=== PATIENT | female | born 1980 | race Caucasian/White ===

== ENCOUNTER 2016-10-17 20:22 | Outpatient (CLI) | payer OTHER ==
[2016-10-18] MEDS ORDERED: ceFAZolin 2 GM/50 ML 50 ML IV SCH (09:15)
[2016-10-18] MEDS ORDERED: VANCOMYCIN INJ 1 GM in SODIUM CHLORIDE 0.9% 250 ML IV SCH (10:00)
== END 2016-10-17 20:23 | disposition critical access hospital (66) ==
DX: M25.551 Pain in right hip (principal); W54.1XXA Struck by dog, initial encounter; W18.39XA Other fall on same level, initial encounter; Y92.007 Garden or yard of unspecified non-institutional (private) residence as the place of occurrence of the external cause
CPT/HCPCS: A0425; A0427

== ENCOUNTER 2016-10-17 20:32 | Inpatient (IN) | payer OTHER ==
[2016-10-17] MEDS ORDERED: SODIUM CHLORIDE 0.9% 1,000 ML IV ONE (20:45)
[2016-10-17] MEDS ORDERED: HYDROmorphone 1 MG/ML SYRINGE IVP STA ×3 (20:45→21:53)
[2016-10-17] MEDS ORDERED: HYDROmorphone 1 MG/ML SYRINGE ONE ×2 (21:28→22:09)
[2016-10-17] MEDS ORDERED: HYDROmorphone 1 MG/ML SYRINGE IVP PRN (22:05)
[2016-10-17] MEDS ORDERED: PROMETHAZINE 25 MG TABLET PO PRN (23:11)
[2016-10-17] MEDS ORDERED: SUMAtriptan 25 MG TABLET PO PRN (23:11)
[2016-10-17] MEDS ORDERED: OXYCODONE 10 MG PO PRN (23:11)
[2016-10-17] MEDS ORDERED: GABAPENTIN 300 MG CAPSULE PO SCH (23:12)
[2016-10-17] MEDS ORDERED: diazePAM INJ 5 MG/ML SYRINGE IVP ONE (23:15)
[2016-10-17] MEDS ORDERED: ALENDRONATE 70 MG TABLET PO SCH ×2 (23:45)
[2016-10-17] MEDS: HYDROmorphone 1 MG/ML SYRINGE IVP PRN (23:57)
[2016-10-18] MEDS ORDERED: BUPIVACAINE 0.5% PF 10 ML VIAL IM SCH (00:02)
[2016-10-18] MEDS: SODIUM CHLORIDE 0.9% 1,000 ML IV SCH ×2 (00:03→16:23)
[2016-10-18] MEDS ORDERED: BUPIVACAINE 0.5% PF 30 ML VIAL ONE (00:16)
[2016-10-18] MEDS: ALPRAZolam 0.25 MG TABLET PO SCH ×6 (00:24→22:23)
[2016-10-18] MEDS: CIPROFLOXACIN 200 MG/100 ML 100 ML IV SCH ×3 (00:32→23:54)
[2016-10-18] MEDS: oxyCODONE 5 MG TABLET PO PRN ×3 (00:59→23:45)
[2016-10-18] MEDS: HYDROmorphone 1 MG/ML SYRINGE IVP PRN ×9 (00:59→21:26)
[2016-10-18] MEDS: ONDANSETRON ODT 4 MG TABLET TL PRN ×2 (02:15→08:34)
[2016-10-18] MEDS: SODIUM CHLORIDE FLUSH 0.9% 10 ML SYRINGE IVP PRN (03:17)
[2016-10-18] MEDS: SODIUM CHLORIDE FLUSH 0.9% 10 ML SYRINGE IVP SCH ×3 (05:58→22:23)
[2016-10-18] MEDS ORDERED: HYDROmorphone 1 MG/ML SYRINGE IVP STA (06:14)
[2016-10-18] MEDS ORDERED: diazePAM INJ 5 MG/ML SYRINGE IVP ONE (06:14)
[2016-10-18] MEDS: ONDANSETRON 4 MG/2 ML VIAL IVP PRN ×2 (06:25→18:16)
[2016-10-18] MEDS ORDERED: PANTOPRAZOLE 40 MG TABLET PO SCH (07:00)
[2016-10-18] MEDS: PROCHLORPERAZINE 10 MG/2 ML VIAL IVP PRN ×2 (08:44→21:20)
[2016-10-18] MEDS ORDERED: NON FORMULARY MED (Sertraline Hcl [Zoloft] 100 MG) PO SCH (09:00)
[2016-10-18] MEDS ORDERED: SUMATRIPTAN 20 MG NAS PRN (09:00)
[2016-10-18] MEDS: predniSONE 20 MG TABLET PO SCH (09:02)
[2016-10-18] MEDS: FAMOTIDINE 20 MG/50 ML 50 ML IV SCH ×3 (09:04→22:22)
[2016-10-18] MEDS: PANTOPRAZOLE 40 MG TABLET PO SCH (09:04)
[2016-10-18] MEDS ORDERED: VANCOMYCIN INJ 1 GM in SODIUM CHLORIDE 0.9% 250 ML IV SCH (09:45)
[2016-10-18] MEDS ORDERED: ceFAZolin 2 GM/50 ML 50 ML IV SCH (09:45)
[2016-10-18] MEDS: SCOPOLAMINE PATCH TOP SCH (10:15)
[2016-10-18] MEDS ORDERED: LACTATED RINGERS 1,000 ML IV ONE ×2 (12:26→13:31)
[2016-10-18] MEDS ORDERED: BUPIVACAINE 0.25%-EPI 1:200000 PF 30 ML VIAL SUBQ ONE ×3 (12:26)
[2016-10-18] MEDS ORDERED: fentaNYL 100 MCG/2 ML VIAL IVP ONE (12:31)
[2016-10-18] MEDS ORDERED: PHENYLEPHRINE 10 MG/ML VIAL IV ONE (12:31)
[2016-10-18] MEDS ORDERED: PROPOFOL 200 MG/20 ML VIAL IVP ONE (12:31)
[2016-10-18] MEDS ORDERED: LIDOCAINE-MPF 2% 5 ML VIAL IM ONE (12:31)
[2016-10-18] MEDS ORDERED: KETOROLAC 30 MG/ML VIAL IVP ONE (12:31)
[2016-10-18] MEDS ORDERED: ONDANSETRON 4 MG/2 ML VIAL IVP ONE (12:31)
[2016-10-18] MEDS ORDERED: ePHEDrine 50 MG/ML AMP IVP ONE (12:31)
[2016-10-18] MEDS ORDERED: MIDAZOLAM 2 MG/2 ML VIAL IVP ONE (12:31)
[2016-10-18] MEDS ORDERED: METOCLOPRAMIDE 10 MG/2 ML VIAL IVP ONE (12:31)
[2016-10-18] MEDS ORDERED: ACETAMINOPHEN 1,000 MG/100 ML VIAL IV ONE (12:31)
[2016-10-18] MEDS ORDERED: HYDROmorphone 1 MG/ML SYRINGE IVP ONE (12:31)
[2016-10-18] MEDS: POLYETHYLENE GLYCOL 3350 17 GM PACKET PO SCH (13:24)
[2016-10-18] MEDS ORDERED: HUMIRA 40 MG SQ ONE (14:00)
[2016-10-18] MEDS ORDERED: ADALIMUMAB 40 MG SUBQ SCH (14:00)
[2016-10-18] MEDS ORDERED: HYDROmorphone 1 MG/ML SYRINGE ONE (14:40)
[2016-10-18] MEDS: HYDROmorphone 1 MG/ML SYRINGE ONE ×4 (14:44→15:27)
[2016-10-18] MEDS ORDERED: ONDANSETRON 4 MG/2 ML VIAL ONE (14:56)
[2016-10-18] MEDS: CHOLECALCIFEROL 5,000 UNIT CAPSULE PO SCH (15:03)
[2016-10-18] MEDS: GABAPENTIN 300 MG CAPSULE PO SCH ×3 (15:03→22:23)
[2016-10-18] MEDS: FOLIC ACID 1 MG TABLET PO SCH (15:03)
[2016-10-18] MEDS: ACETAMINOPHEN 325 MG TABLET PO PRN (18:19)
[2016-10-18] MEDS: azaTHIOprine 50 MG TABLET PO SCH (18:20)
[2016-10-18] MEDS: SERTRALINE 50 MG TABLET PO SCH (18:20)
[2016-10-19] MEDS: ONDANSETRON 4 MG/2 ML VIAL IVP PRN ×2 (03:20→10:53)
[2016-10-19] MEDS: SODIUM CHLORIDE 0.9% 1,000 ML IV SCH ×2 (03:20→14:46)
[2016-10-19] MEDS: HYDROmorphone 1 MG/ML SYRINGE IVP PRN ×10 (03:29→22:18)
[2016-10-19] MEDS: ALPRAZolam 0.25 MG TABLET PO SCH ×5 (05:55→22:08)
[2016-10-19] MEDS: PROCHLORPERAZINE 10 MG/2 ML VIAL IVP PRN ×2 (05:55→13:37)
[2016-10-19] MEDS: SODIUM CHLORIDE FLUSH 0.9% 10 ML SYRINGE IVP SCH ×3 (05:57→22:13)
[2016-10-19] MEDS: FAMOTIDINE 20 MG/50 ML 50 ML IV SCH ×2 (10:55→22:09)
[2016-10-19] MEDS: azaTHIOprine 50 MG TABLET PO SCH (10:57)
[2016-10-19] MEDS: CHOLECALCIFEROL 5,000 UNIT CAPSULE PO SCH (10:57)
[2016-10-19] MEDS: FOLIC ACID 1 MG TABLET PO SCH (10:58)
[2016-10-19] MEDS: predniSONE 20 MG TABLET PO SCH (10:58)
[2016-10-19] MEDS: SERTRALINE 50 MG TABLET PO SCH (10:58)
[2016-10-19] MEDS: ENOXAPARIN 40 MG/0.4 ML SYRINGE SUBQ SCH (10:58)
[2016-10-19] MEDS: GABAPENTIN 300 MG CAPSULE PO SCH ×3 (11:00→22:08)
[2016-10-19] MEDS: POLYETHYLENE GLYCOL 3350 17 GM PACKET PO SCH (11:00)
[2016-10-19] MEDS: PANTOPRAZOLE 40 MG TABLET PO SCH (11:01)
[2016-10-19] MEDS: CIPROFLOXACIN 200 MG/100 ML 100 ML IV SCH ×2 (12:30→23:43)
[2016-10-19] MEDS ORDERED: SUMAtriptan 6 MG/0.5 ML VIAL SUBQ PRN (13:31)
[2016-10-19] MEDS: ACETAMINOPHEN 325 MG TABLET PO PRN (15:57)
[2016-10-19] MEDS: oxyCODONE 5 MG TABLET PO PRN ×2 (16:55→22:57)
[2016-10-20] MEDS: PROCHLORPERAZINE 10 MG/2 ML VIAL IVP PRN ×3 (00:18→21:57)
[2016-10-20] MEDS: HYDROmorphone 1 MG/ML SYRINGE IVP PRN ×10 (00:18→21:57)
[2016-10-20] MEDS: SODIUM CHLORIDE FLUSH 0.9% 10 ML SYRINGE IVP PRN ×8 (00:19→19:46)
[2016-10-20] MEDS: SODIUM CHLORIDE 0.9% 1,000 ML IV SCH ×3 (02:03→13:47)
[2016-10-20] MEDS: oxyCODONE 5 MG TABLET PO PRN ×6 (03:08→21:56)
[2016-10-20] MEDS: ACETAMINOPHEN 325 MG TABLET PO PRN ×2 (03:12→21:56)
[2016-10-20] MEDS ORDERED: ALENDRONATE 70 MG TABLET PO SCH (06:00)
[2016-10-20] MEDS: ALPRAZolam 0.25 MG TABLET PO SCH ×5 (06:10→21:55)
[2016-10-20] MEDS: SODIUM CHLORIDE FLUSH 0.9% 10 ML SYRINGE IVP SCH ×3 (06:11→21:57)
[2016-10-20] MEDS ORDERED: POTASSIUM CHLORIDE 20 MEQ TABLET PO STA (07:39)
[2016-10-20] MEDS: FAMOTIDINE 20 MG/50 ML 50 ML IV SCH ×2 (09:16→21:58)
[2016-10-20] MEDS: ENOXAPARIN 40 MG/0.4 ML SYRINGE SUBQ SCH (09:18)
[2016-10-20] MEDS: CHOLECALCIFEROL 5,000 UNIT CAPSULE PO SCH (09:20)
[2016-10-20] MEDS: PANTOPRAZOLE 40 MG TABLET PO SCH (09:20)
[2016-10-20] MEDS: SERTRALINE 50 MG TABLET PO SCH (09:20)
[2016-10-20] MEDS: FOLIC ACID 1 MG TABLET PO SCH (09:20)
[2016-10-20] MEDS: GABAPENTIN 300 MG CAPSULE PO SCH ×3 (09:20→21:55)
[2016-10-20] MEDS: azaTHIOprine 50 MG TABLET PO SCH (09:21)
[2016-10-20] MEDS: predniSONE 20 MG TABLET PO SCH (09:21)
[2016-10-20] MEDS: POLYETHYLENE GLYCOL 3350 17 GM PACKET PO SCH (09:50)
[2016-10-20] MEDS: CIPROFLOXACIN 200 MG/100 ML 100 ML IV SCH (11:18)
[2016-10-21] MEDS: CIPROFLOXACIN 200 MG/100 ML 100 ML IV SCH ×3 (00:26→12:44)
[2016-10-21] MEDS: SODIUM CHLORIDE 0.9% 1,000 ML IV SCH ×2 (00:29→06:28)
[2016-10-21] MEDS: oxyCODONE 5 MG TABLET PO PRN ×3 (01:46→11:55)
[2016-10-21] MEDS: HYDROmorphone 1 MG/ML SYRINGE IVP PRN ×6 (02:10→11:02)
[2016-10-21] MEDS: ALPRAZolam 0.25 MG TABLET PO SCH ×2 (05:48→09:50)
[2016-10-21] MEDS: SODIUM CHLORIDE FLUSH 0.9% 10 ML SYRINGE IVP SCH (06:27)
[2016-10-21] MEDS ORDERED: predniSONE 10 MG TABLET PO SCH (08:00)
[2016-10-21] MEDS ORDERED: predniSONE 5 MG TABLET PO SCH (08:00)
[2016-10-21] MEDS: POLYETHYLENE GLYCOL 3350 17 GM PACKET PO SCH (08:15)
[2016-10-21] MEDS: FAMOTIDINE 20 MG/50 ML 50 ML IV SCH (08:16)
[2016-10-21] MEDS: ENOXAPARIN 40 MG/0.4 ML SYRINGE SUBQ SCH (08:16)
[2016-10-21] MEDS: CHOLECALCIFEROL 5,000 UNIT CAPSULE PO SCH (08:16)
[2016-10-21] MEDS: PANTOPRAZOLE 40 MG TABLET PO SCH (08:16)
[2016-10-21] MEDS: SERTRALINE 50 MG TABLET PO SCH (08:17)
[2016-10-21] MEDS: GABAPENTIN 300 MG CAPSULE PO SCH (08:17)
[2016-10-21] MEDS: azaTHIOprine 50 MG TABLET PO SCH (08:17)
[2016-10-21] MEDS: FOLIC ACID 1 MG TABLET PO SCH (08:18)
[2016-10-21] MEDS: SODIUM CHLORIDE FLUSH 0.9% 10 ML SYRINGE IVP PRN ×3 (08:37→11:55)
[2016-10-21] MEDS: SCOPOLAMINE PATCH TOP SCH (09:50)
[2016-10-21] MEDS: ACETAMINOPHEN 325 MG TABLET PO PRN (09:57)
== END 2016-10-21 13:30 | disposition home or self-care (01) | DRG 481 ==
PROC: 0QS606Z Reposition Right Upper Femur with Intramedullary Internal Fixation Device, Open Approach (ICD-10-PCS; principal; 2016-10-18 10:30)
DX: S72.21XA Displaced subtrochanteric fracture of right femur, initial encounter for closed fracture (principal); K50.90 Crohn's disease, unspecified, without complications; E24.2 Drug-induced Cushing's syndrome; W54.1XXA Struck by dog, initial encounter; L97.511 Non-pressure chronic ulcer of other part of right foot limited to breakdown of skin; L97.521 Non-pressure chronic ulcer of other part of left foot limited to breakdown of skin; G43.909 Migraine, unspecified, not intractable, without status migrainosus; R53.82 Chronic fatigue, unspecified; G47.30 Sleep apnea, unspecified; F32.9 Major depressive disorder, single episode, unspecified; F41.9 Anxiety disorder, unspecified; T38.0X5A Adverse effect of glucocorticoids and synthetic analogues, initial encounter; R73.9 Hyperglycemia, unspecified; K21.9 Gastro-esophageal reflux disease without esophagitis; B95.61 Methicillin susceptible Staphylococcus aureus infection as the cause of diseases classified elsewhere; B96.20 Unspecified Escherichia coli [E. coli] as the cause of diseases classified elsewhere; B95.2 Enterococcus as the cause of diseases classified elsewhere; Y93.9 Activity, unspecified; Y92.009 Unspecified place in unspecified non-institutional (private) residence as the place of occurrence of the external cause; Y99.9 Unspecified external cause status; Z79.51 Long term (current) use of inhaled steroids; Z79.52 Long term (current) use of systemic steroids; Z79.891 Long term (current) use of opiate analgesic; Z79.899 Other long term (current) drug therapy; Z90.49 Acquired absence of other specified parts of digestive tract; Z87.891 Personal history of nicotine dependence

== ENCOUNTER 2016-12-12 14:19 | Outpatient (CLI) | payer OTHER | END 2016-12-12 14:20 | disposition home or self-care (01) | LOC: EMS 14:19 | PROVIDERS: ATTEND Surgery | DX: S79.922A Unspecified injury of left thigh, initial encounter (principal); W54.1XXA Struck by dog, initial encounter; Y93.89 Activity, other specified; Y92.018 Other place in single-family (private) house as the place of occurrence of the external cause | CPT/HCPCS: A0425; A0427 ==

== ENCOUNTER 2016-12-12 14:35 | Inpatient (IN) | payer OTHER ==
[2016-12-12] MEDS ORDERED: HYDROmorphone 1 MG/ML SYRINGE IVP STA ×4 (14:44→16:23)
[2016-12-12] MEDS ORDERED: HYDROmorphone 1 MG/ML SYRINGE ONE ×3 (14:45→16:00)
--- NOTE | 2016-12-12 14:47 | ED Physician Documentation ---
PD HPI LOWER EXT INJURY - Stated complaint Stated Complaint: L FEMUR INJ - Chief complaint Chief Complaint: Ext Problem - History obtained from History obtained from: Patient, Family, EMS - History of Present Illness PD HPI LOW EXT INJURY LOCATION: Other (36-year-old woman with history of severe Crohn's, currently on multiple immunomodulation medications including prednisone 7 mg a day. A month and a half ago had a right femur fracture status post ORIF and was recovering well. Today she was letting her dogs out and she tripped and fell on her left hip and now has moderate left hip pain and inability to ambulate. No other injuries although she feels like something might be new and wrong in the right femur again. No head or neck injury. Last oral intake at 9 a.m.) Review of Systems Ten Systems: 10 systems reviewed and negative Constitutional: denies: Fever, Myalgias Cardiac: denies: Chest pain / pressure, Palpitations Respiratory: denies: Dyspnea, Cough Musculoskeletal: denies: Neck pain, Back pain Neurologic: denies: Headache, Head injury, LOC PD PAST MEDICAL HISTORY - Past Medical History Past Medical History: Yes Neuro: Headache/migraine GI: GERD, Crohn's disease Psych: Depression, Anxiety Musculoskeletal: Osteoporosis Derm: Other - Past Surgical History Past Surgical History: Yes General: Cholecystectomy, Appendectomy, Colonoscopy - Present Medications Home Medications: Ambulatory Orders Medication Instructions Recorded Confirmed Alendronate [Fosamax] 70 mg PO Q7D 10/22/13 12/12/16 Promethazine [Phenergan] 25 mg PO TID PRN 10/22/13 12/12/16 Sertraline HCl [Zoloft] 100 mg PO DAILY 10/22/13 12/12/16 Sumatriptan [Imitrex] 25 mg PO DAILY PRN 10/22/13 12/12/16 predniSONE [Deltasone] 7 mg PO DAILY 10/22/13 12/12/16 Alprazolam [Xanax] 0.5 mg PO 5XD PRN 10/24/14 12/12/16 Cholecalciferol (Vitamin D3) 10,000 units PO DAILY 10/24/14 12/12/16 [Vitamin D3] Famotidine [Pepcid] 20 mg PO BID 10/24/14 12/12/16 Folic Acid 1 mg PO DAILY 10/24/14 12/12/16 Gabapentin 1,800 mg PO QPM 10/24/14 12/12/16 Gabapentin 900 mg PO 0900,1400 10/24/14 12/12/16 Ondansetron Odt [Zofran Odt] 8 mg PO QID PRN 10/24/14 12/12/16 Pantoprazole [Protonix] 40 mg PO DAILY 10/24/14 12/12/16 Adalimumab [Humira] 40 mg SQ Q7D 10/17/16 12/12/16 Azathioprine 250 mg PO DAILY 10/17/16 12/12/16 Sumatriptan 20 mg HAN DAILY PRN 10/17/16 12/12/16 oxyCODONE [Roxicodone] 10 mg PO Q4H PRN 10/17/16 12/12/16 Budesonide [Budesonide EC] 9 mg PO DAILY 12/12/16 12/12/16 Cholestyramine (with Sugar) 4 gm PO TID PRN 12/12/16 12/12/16 [Cholestyramine Packet] Diphenoxylate/Atropine [Lomotil] 2 each PO QID PRN 12/12/16 12/12/16 HYDROmorphone [Dilaudid] 2 mg PO Q6H 12/12/16 12/12/16 - Allergies Allergies/Adverse Reactions: Allergies Allergy/AdvReac Type Severity Reaction Status Date / Time venom-honey bee Allergy Severe anaphylaxis Verified 10/22/13 17:13 [bee venom (honey bee)] latex Allergy Intermediate Edema Verified 10/18/16 04:57 - Social History Does the pt smoke?: No Smoking Status: Former smoker Does the pt drink ETOH?: No Does the pt have substance abuse?: No - Family History Family history: reports: Non contributory - Immunizations Immunizations are current?: Yes - POLST Patient has POLST: No PD ED PE NORMAL - Vitals Vital signs reviewed: Yes - General General: Alert and oriented X 3, No acute distress - HEENT HEENT: PERRL, EOMI - Neck Neck: Supple, no meningeal sign, No bony TTP - Cardiac Cardiac: RRR, No murmur - Respiratory Respiratory: No respiratory distress, Clear bilaterally - Abdomen Abdomen: Soft, Non tender - Back Back: No CVA TTP, No spinal TTP - Derm Derm: Normal color, Warm and dry - Extremities Extremities: Other (Right leg and femur are nontender to palpation save for mild tenderness of the distal femur laterally. No pain with internal or external rotation. Left leg is held somewhat flexed and very tender around the hip, unable to move it at all. NVI in both feet.) - Neuro Neuro: Alert and oriented X 3, Normal speech - Psych Psych: Normal mood, Normal affect Results - Vitals Vitals: Vital Signs - 24 hr 12/12/16 12/12/16 14:36 15:14 Temperature 36.6 C Heart Rate 72 69 Respiratory 16 16 Rate Blood Pressure 136/69 H 110/64 O2 Saturation 98 94 Oxygen O2 Source Room air - Labs Labs: Laboratory Tests 12/12/16 12/12/16 12/12/16 14:23 14:23 14:32 WBC 9.5 RBC 3.70 L Hgb 11.0 L Hct 34.1 L MCV 92.3 MCH 29.7 MCHC 32.2 RDW 16.8 H Plt Count 233 MPV 10.0 Neut # 6.2 Lymph # 2.4 [place] # 0.7 Eos # 0.1 Baso # 0.1 Absolute Nucleated RBC 0.00 Nucleated RBCs 0.0 Sodium 138 Potassium 4.2 Chloride 103 Carbon Dioxide 28 Anion Gap 7.0 BUN 12 Creatinine 0.5 Estimated GFR (MDRD) 140 Glucose 105 H Calcium 8.6 Total Bilirubin 0.6 AST 28 ALT 34 Alkaline Phosphatase 122 H Total Protein 6.1 L Albumin 3.7 Globulin 2.4 Albumin/Globulin Ratio 1.5 Lipase 37 Serum HCG, Qual NEGATIVE - Rads (name of study) R femur Radiology: EMP read contemporaneously (no acute frx) L hip /femur Radiology: EMP read contemporaneously (completely displaced proximal femoral shaft fracture) Procedures - General procedure General procedure: Femoral nerve block was done using real-time ulcer on guidance and 50 mL of 0.5 % Marcaine with epinephrine was instilled. PD MEDICAL DECISION MAKING - Consults Consults: Discussed case with (Dr Farrar for admit at 3:33pm) Departure - Departure Disposition: 66 [facility] DC/Xfer Clinical Impression: Left femoral shaft fracture Qualifiers: Encounter type: initial encounter Fracture type: closed Fracture morphology: transverse Fracture alignment: displaced Qualified Code(s): S72.322A - Displaced transverse fracture of shaft of left femur, initial encounter for closed fracture Condition: Stable
[2016-12-12 14:58] LABS: BASOPHILS # (AUTO) 0.1 10^3/uL (0.0-0.1); BASOPHILS % (AUTO) 0.7 %; EOSINOPHILS # (AUTO) 0.1 10^3/uL (0.0-0.7); EOSINOPHILS % (AUTO) 1.1 %; HCT - HEMATOCRIT 34.1 % (37.0-47.0); LYMPHOCYTES # (AUTO) 2.4 10^3/uL (1.5-3.5); LYMPHOCYTES % (AUTO) 25.1 %; MEAN CORPUSCULAR HEMOGLOBIN 29.7 pg (27.0-31.0); MEAN CORPUSCULAR HGB CONC 32.2 g/dL (32.0-36.0); MEAN CORPUSCULAR VOLUME 92.3 fL (81.0-99.0); MONOCYTES # (AUTO) 0.7 10^3/uL (0.0-1.0); MONOCYTES % (AUTO) 7.8 %; NEUTROPHILS # (AUTO) 6.2 10^3/uL (1.5-6.6); NEUTROPHILS % (AUTO) 65.3 %; RED CELL DISTRIBUTION WIDTH 16.8 % (12.0-15.0); UNCORRECTED WHITE BLOOD COUNT 9.5 x10^3/uL; WHITE BLOOD COUNT 9.5 x10^3/uL (4.8-10.8)
[2016-12-12 15:12] LABS: ALBUMIN/GLOBULIN RATIO 1.5 (1.0-2.2); BILIRUBIN,TOTAL 0.6 mg/dL (0.2-1.0); CALCIUM 8.6 mg/dL (8.5-10.3); CREATININE 0.5 mg/dL (0.4-1.0); POTASSIUM 4.2 mmol/L (3.5-5.0); TOTAL PROTEIN 6.1 g/dL (6.7-8.2)
[2016-12-12] MEDS ORDERED: BUPIVACAINE 0.5%-EPI 1:200000 PF 30 ML VIAL ONE (16:00)
[2016-12-12] MEDS ORDERED: ADALIMUMAB 40 MG SUBQ SCH (16:00)
[2016-12-12] MEDS ORDERED: CHOLESTYRAMINE 4 GM PACKET PO PRN (16:02)
[2016-12-12] MEDS ORDERED: SUMAtriptan 25 MG TABLET PO PRN (16:02)
[2016-12-12] MEDS ORDERED: ZOLPIDEM 5 MG TABLET PO PRN (16:03)
[2016-12-12] MEDS ORDERED: oxyCODONE 5 MG TABLET PO PRN (16:03)
[2016-12-12] MEDS ORDERED: ACETAMINOPHEN 325 MG TABLET PO PRN (16:03)
--- NOTE | 2016-12-12 16:09 | XRAY Preliminary Report ---
Exam: XR Femur 2V LT IMPRESSION: Completely displaced and overriding proximal shaft fracture of the left femur. [facility] SITE ID: [id number]
--- NOTE | 2016-12-12 16:11 | XRAY Preliminary Report ---
Exam: XR Femur 2V RT IMPRESSION: Stable healing transfixed proximal femoral shaft fracture, with no new fractures identifi ed. [facility] SITE ID: [id number]
--- NOTE | 2016-12-12 16:11 | XRAY Preliminary Report ---
Exam: XR Hip w/Pelvis 2-3V LT IMPRESSION: 1. Greater than shaft width displaced left subtrochanteric proximal femoral fracture. 2. Healing proximal right femoral fracture without evidence for hardware complication. 3. Bilateral hip joints show normal alignment. [facility] SITE ID: [id number]
--- NOTE | 2016-12-12 16:12 | XRAY Report ---
EXAM: LEFT FEMUR RADIOGRAPHY EXAM DATE: 12/12/2016 03:54 PM. CLINICAL HISTORY: Bilateral leg pain after a fall. COMPARISON: 11/29/2016. TECHNIQUE: 2 views. FINDINGS: Bones: There is a completely displaced and overriding proximal shaft fracture. No other traumatic or destructive bone abnormalities. Joints: The visualized hip and knee joints are normal. No effusions. Soft Tissues: Associated soft tissue swelling. IMPRESSION: Completely displaced and overriding proximal shaft fracture of the left femur. [facility] Referring Provider Line: [phone] SITE ID: [id number]
--- NOTE | 2016-12-12 16:14 | XRAY Report ---
EXAM: LEFT HIP AND PELVIS RADIOGRAPHY EXAM DATE: 12/12/2016 03:55 PM. HISTORY: B LEG PAIN P FALL, RECENT R FEMUR FRX. COMPARISONS: None. TECHNIQUE: 1 view of the pelvis and 1 view of the hip. FINDINGS: Bones: Greater than shaft width displaced subtrochanteric proximal femoral shaft fracture is noted. C allus formation is noted at the right proximal femoral shaft fracture fixed with intramedullary marsha a nd interlocking screw.. Joints: Bilateral hip joints and pubic symphysis appear normally aligned. Sacroiliac joints appear un remarkable. Soft Tissues: Soft tissue swelling noted at the left proximal thigh. IMPRESSION: 1. Greater than shaft width displaced left subtrochanteric proximal femoral fracture. 2. Healing proximal right femoral fracture without evidence for hardware complication. 3. Bilateral hip joints show normal alignment. [facility] Referring Provider Line: [phone] SITE ID: [id number]
--- NOTE | 2016-12-12 16:14 | XRAY Report ---
EXAM: RIGHT FEMUR RADIOGRAPHY EXAM DATE: 12/12/2016 03:55 PM. CLINICAL HISTORY: Bilateral leg pain after a fall. COMPARISON: 11/29/2016. TECHNIQUE: 2 views. FINDINGS: Bones: Healing proximal shaft fracture in stable position with increased surrounding callus formation and stable IM marsha and femoral neck screw. No new fractures identified. Joints: The visualized hip and knee joints are normal. No effusions. Soft Tissues: Normal. No soft tissue swelling. IMPRESSION: Stable healing transfixed proximal femoral shaft fracture, with no new fractures identifi ed. [facility] Referring Provider Line: [phone] SITE ID: [id number]
[2016-12-12] MEDS ORDERED: ALENDRONATE 70 MG TABLET PO SCH (17:00)
--- NOTE | 2016-12-12 17:15 | HISTORY & PHYSICAL EXAMINATION ---
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 The patient was recovering well from recent hospitalization for right femur shaft fracture and today while she was leaving her home and trying to keep her dogs from getting outside she tripped over a door jam, she states that she felt a crack in her left leg and then fell to the floor landing on her left hip. The patient states that she was been in excruciating pain and could not get up. She called her who then brought her in to the emergency department. The patient otherwise denies any recent headaches, blurred vision, chest pain, abdominal pain, fevers or chills, any new abdominal pain, she does have chronic diarrhea but denies any focal neurologic deficits. On presentation to the emergency department the patient was afebrile and vital signs were stable. The patient underwent routine lab work all of which was within normal limits. She then underwent a x-ray of her left femur which revealed a completely displaced and overriding proximal shaft fracture of the left femur. In the emergency department the patient was given a dose of IV Dilaudid and a femoral nerve block by the emergency room physician. The patient' s leg was then placed in a traction device and orthopedic surgery was consult. The orthopedic surgeon asked that the patient be admitted by the hospitalist team and that they would consult. He asked that the patient be kept n.p.o. after midnight as she would likely go to the OR first thing tomorrow morning. Review of Systems - Constitutional Constitutional: denies: Fatigue, Fever, Chills, Malaise, Weakness, Poor appetite , Diaphoresis, Night sweats, Weight gain, Weight loss, Other - Eyes Eyes: denies: Pain, Irritation, Amaurosis, Blurred vision, Spots in vision, Field loss, Vision loss, Dipolpia, Corrective lenses, Other - Ears, Nose & Throat Ears, Nose & Throat: denies: Ear pain, Hearing loss, Hearing aids, Tinnitus, Vertigo, Nasal pain, Nasal discharge, Nosebleeds, Nasal obstruction, Nasal congestion, Postnasal drainage, Dentures, Sore throat, Hoarseness, Mouth lesions , Bleeding gums, Dental decay, Dental pain, Other - Cardiovascular Cariovascular: denies: Irregular heart rate, Palpitations, Chest pain, Edema, Lightheadedness, Syncope, Exertional dyspnea, Decr. exercise tolerance, Orthopnea, Other - Respiratory Respiratory: denies: Cough, Sputum production, Wheezing, Snoring, Hemoptysis, Orthopnea, SOB at rest, SOB with exertion, Apnea, Stridor, Pleuritic pain, Other - Gastrointestinal Gastrointestinal: reports: Abdominal pain (chronic), Diarrhea (chronic). denies : Abdominal distention, Constipation, Rectal bleeding, Black stools, Bloody stools, Nausea, Vomiting, Bile emesis, Coffee grounds emesis, Poor appetite - Genitourinary Genitourinary: denies: Dysuria, Frequency, Urgency, Hematuria, Incontinence, Flank pain - Musculoskeletal Musculoskeletal: reports: Muscle pain (spasms in the left leg), Limited range of motion (secondary to left femur fracture and pain), Joint pain (Left hip). denies: Muscle aches, Stiffness, Muscle weakness - Integumentary Integumentary: denies: Rash, Pruritis, Lesions, Dryness - Neurological Neurological: denies: General weakness, Focal weakness, Headache, Dizziness, Numbness, Memory problems, Abnormal gait, Seizures, Slurred speech - Psychiatric Psychiatric: denies: Depression, Anxiety, Suicidal - Endocrine Endocrine: denies: Polyuria, Polydypsia, Polyphagia, Intolerance to cold - Hematologic/Lymphatic Hematologic/Lymphatic: denies: Anemia, Bruising, Petechiae, Lymphadenopathy History - Past Medical History Neuro: reports: Headache/migraine Endocrine/Autoimmune: reports: Other (Steroid induced diabetes intermittently ) GI: reports: GERD, Crohn's disease Psych: reports: Depression, Anxiety Musculoskeletal: reports: Osteoporosis Derm: reports: Other MRSA Hx?: No - Past Surgical History General: reports: Cholecystectomy, Appendectomy, Colonoscopy - Family & Social History Family History: Mother: Alcoholism, Father: Alcoholism, Hypertension Family History Comment/Other: Mom with crohns disease Living arrangement: At home Living Situation: With spouse/s.o. Social History Notes: she lives in [place] with her . She met her at the age of 18 he at the age of 19. Normally the patient is completely independent with regards to her activities of daily living. Patient has been hospitalized several times for Crohn's colitis flares requiring IV medications and TPN in the past. The patient did smoke she started the age of 18 and smoked from the age of 18 to the age of 20 then began around the age of [age] and again from [age] and then once more from [age]. She quit in 2013. She never smoked more than half a pack a day. - Substance History Use: Uses substance without health or social issues: NONE Abuse: Recurrent use of substance despite neg consequences: NONE Dependence: Experiences withdrawal or developed tolerances: NONE - POLST Patient has POLST: No POLST Status: Full Code Meds/Allgy - Home Medications Home Medications: Ambulatory Orders Medication Instructions Recorded Confirmed Alendronate [Fosamax] 70 mg PO Q7D 10/22/13 12/12/16 Promethazine [Phenergan] 25 mg PO TID PRN 10/22/13 12/12/16 Sertraline HCl [Zoloft] 100 mg PO DAILY 10/22/13 12/12/16 Sumatriptan [Imitrex] 25 mg PO DAILY PRN 10/22/13 12/12/16 predniSONE [Deltasone] 7 mg PO DAILY 10/22/13 12/12/16 Alprazolam [Xanax] 0.5 mg PO 5XD PRN 10/24/14 12/12/16 Cholecalciferol (Vitamin D3) 10,000 units PO DAILY 10/24/14 12/12/16 [Vitamin D3] Famotidine [Pepcid] 20 mg PO BID 10/24/14 12/12/16 Folic Acid 1 mg PO DAILY 10/24/14 12/12/16 Gabapentin 1,800 mg PO QPM 10/24/14 12/12/16 Gabapentin 900 mg PO 0900,1400 10/24/14 12/12/16 Ondansetron Odt [Zofran Odt] 8 mg PO QID PRN 10/24/14 12/12/16 Pantoprazole [Protonix] 40 mg PO DAILY 10/24/14 12/12/16 Adalimumab [Humira] 40 mg SQ Q7D 10/17/16 12/12/16 Azathioprine 250 mg PO DAILY 10/17/16 12/12/16 Sumatriptan 20 mg HAN DAILY PRN 10/17/16 12/12/16 oxyCODONE [Roxicodone] 10 mg PO Q4H PRN 10/17/16 12/12/16 Budesonide [Budesonide EC] 9 mg PO DAILY 12/12/16 12/12/16 Cholestyramine (with Sugar) 4 gm PO TID PRN 12/12/16 12/12/16 [Cholestyramine Packet] Diphenoxylate/Atropine [Lomotil] 2 each PO QID PRN 12/12/16 12/12/16 HYDROmorphone [Dilaudid] 2 mg PO Q6H 12/12/16 12/12/16 - Allergies Allergies/Adverse Reactions: Allergies Allergy/AdvReac Type Severity Reaction Status Date / Time venom-honey bee Allergy Severe anaphylaxis Verified 10/22/13 17:13 [bee venom (honey bee)] latex Allergy Intermediate Edema Verified 10/18/16 04:57 Exam - Vital Signs Vital Signs: Vital Signs x48h Temp Pulse Resp BP Pulse Ox 12/12/16 16:27 77 16 114/74 99 12/12/16 15:14 69 16 110/64 94 12/12/16 14:36 36.6 C 72 16 136/69 H 98 - Physical Exam General Appearance: positive: Alert, Mild distress (with any movement she has some pain in the left leg), Other (Obese, cushingoid features) Eyes Bilateral: positive: Normal inspection, PERRL, EOMI, No lid inflammation, Conjunctivae nml, No scleral icterus ENT: positive: ENT inspection nml, Pharynx nml, No signs of dehydration. negative: Purulent nasal drainage, Pharyngeal erythema, Oral lesions Neck: positive: Nml inspection, Thyroid nml, No JVD, Trachea midline, Thyromegaly. negative: Lymphadenopathy (R), Lymphadenopathy (L) Respiratory: positive: Chest non-tender, No respiratory distress, Breath sounds nml. negative: Wheezes, Rales, Rhonchi Cardiovascular: positive: Regular rate & rhythm, No murmur, No gallop Peripheral Pulses: positive: 2+ Abdomen: positive: Non-tender, No organomegaly, Nml bowel sounds, Other ( Trunkal obesity). negative: Guarding, Rebound, Hepatomegaly, Mass Back: positive: Nml inspection Skin: positive: Color nml, No rash, Warm Extremities: positive: Other (Decreased ROM around the left leg, currently in a traction device.) Neurologic/Psychiatric: positive: Oriented x3, CN's nml (2-12), Motor nml, Sensation nml, Mood/affect nml Conclusion/Plan - Problem List (1) Left femoral shaft fracture Conclusion/Plan: Patient presented after a fall she was unable to ambulate and had severe pain in her left leg. The patient has had recent right femoral shaft fracture in September and was still recovering. Patient had a mechanical fall X-ray of the left leg revealed a left femoral shaft fracture. Fracture was almost identical to previous fracture. These types of fractures can occur with use of Fosamax. Patient also has osteoporosis secondary to chronic steroids which could also have been a contributing factor to her fracture. Plan: Orthopedics consult for repair of the left femur fracture N.p.o. after midnight Pain control with IV Dilaudid and by mouth oxycodone Patient received a femoral nerve block in the emergency room with traction device PT consult Consider stopping Fosamax Qualifiers: Encounter type: initial encounter Fracture type: closed Fracture morphology: transverse Fracture alignment: displaced Qualified Code(s): S72.322A - Displaced transverse fracture of shaft of left femur, initial encounter for closed fracture (2) Crohn disease Conclusion/Plan: Currently not having a flare Continue home dose of prednisone 7 mg daily Continue home dose of budesonide Continue home dose of azathioprine Continue Humira weekly next dose scheduled for tomorrow Patient has chronic diarrhea for which she receives Lomotil at home this will be continued while hospitalized. Monitor closely (3) Osteoporosis Conclusion/Plan: Patient has osteoporosis secondary to chronic steroid use. Patient now has had 2 femoral shaft fractures recently on the right currently on the left Fosamax has been related to femoral shaft fractures and patient is currently on Fosamax for osteoporosis. Continue vitamin D and calcium Consider stopping Fosamax given the second fracture will need to discuss with her PCP as an outpatient. (4) Depression Conclusion/Plan: currently stable continue home dose of Zoloft (5) Prophylactic use of low molecular weight heparin for venous thromboembolism Conclusion/Plan: Will place on Lovenox postop for VTE prophylaxis - Lab Results Lab results reviewed: Yes Fish Bones: 12/12/16 14:32 12/12/16 14:23 - Diagnostic Imaging Results Diagnostic Imaging Results: positive: Final report reviewed - EKG Results EKG Interpreted Independently: Yes Issues/Core Measures - Anticipated LOS Anticipated Stay Length: 2 or more midnights - DVT/VTE - Prophylaxis VTE/DVT Prophylaxis med ordered at admit?: Yes
[2016-12-12] MEDS: oxyCODONE 5 MG TABLET PO PRN (18:12)
[2016-12-12] MEDS: ONDANSETRON 4 MG/2 ML VIAL IVP PRN (18:13)
[2016-12-12] MEDS: HYDROmorphone 1 MG/ML SYRINGE IVP PRN ×2 (18:13→20:32)
[2016-12-12] MEDS: SODIUM CHLORIDE 0.9% 1,000 ML IV SCH (18:18)
[2016-12-12] MEDS: PROCHLORPERAZINE 10 MG/2 ML VIAL IVP PRN (19:10)
[2016-12-12] MEDS: FAMOTIDINE 20 MG TABLET PO SCH (20:27)
[2016-12-12] MEDS: GABAPENTIN 300 MG CAPSULE PO SCH (20:27)
[2016-12-12] MEDS: SODIUM CHLORIDE FLUSH 0.9% 10 ML SYRINGE IVP SCH (20:28)
[2016-12-13] MEDS: oxyCODONE 5 MG TABLET PO PRN ×2 (00:05→13:46)
[2016-12-13] MEDS: ONDANSETRON ODT 4 MG TABLET TL PRN ×2 (00:11→18:15)
[2016-12-13] MEDS: PROCHLORPERAZINE 10 MG/2 ML VIAL IVP PRN ×3 (00:41→19:57)
[2016-12-13] MEDS: HYDROmorphone 1 MG/ML SYRINGE IVP PRN ×5 (02:53→21:57)
[2016-12-13] MEDS: SODIUM CHLORIDE 0.9% 1,000 ML IV SCH ×3 (02:53→22:34)
[2016-12-13] MEDS: ONDANSETRON 4 MG/2 ML VIAL IVP PRN ×3 (05:43→21:50)
[2016-12-13] MEDS: SODIUM CHLORIDE FLUSH 0.9% 10 ML SYRINGE IVP SCH ×3 (05:43→21:57)
[2016-12-13 06:09] LABS: BASOPHILS # (AUTO) 0.1 10^3/uL (0.0-0.1); BASOPHILS % (AUTO) 1.5 %; EOSINOPHILS # (AUTO) 0.1 10^3/uL (0.0-0.7); HCT - HEMATOCRIT 36.9 % (37.0-47.0); HGB - HEMOGLOBIN 11.8 g/dL (12.0-16.0); LYMPHOCYTES # (AUTO) 0.8 10^3/uL (1.5-3.5); LYMPHOCYTES % (AUTO) 9.8 %; MEAN CORPUSCULAR HEMOGLOBIN 29.9 pg (27.0-31.0); MEAN CORPUSCULAR VOLUME 93.4 fL (81.0-99.0); MEAN PLATELET VOLUME 10.1 fL (7.9-10.8); MONOCYTES # (AUTO) 0.7 10^3/uL (0.0-1.0); MONOCYTES % (AUTO) 8.7 %; NEUTROPHILS # (AUTO) 6.2 10^3/uL (1.5-6.6); RED BLOOD COUNT 3.95 10^6/uL (4.20-5.40); RED CELL DISTRIBUTION WIDTH 16.9 % (12.0-15.0); UNCORRECTED WHITE BLOOD COUNT 7.9 x10^3/uL; WHITE BLOOD COUNT 7.9 x10^3/uL (4.8-10.8)
[2016-12-13 06:15] LABS: INR 1.2 (0.8-1.2); PT - PROTHROMBIN TIME 13.9 secs (9.9-12.6)
[2016-12-13] MEDS: PANTOPRAZOLE 40 MG TABLET PO SCH (06:19)
[2016-12-13 06:23] LABS: ALBUMIN/GLOBULIN RATIO 1.3 (1.0-2.2); BILIRUBIN,TOTAL 1.3 mg/dL (0.2-1.0); CALCIUM 8.5 mg/dL (8.5-10.3); CREATININE 0.4 mg/dL (0.4-1.0); MAGNESIUM 1.8 mg/dL (1.7-2.8); PHOSPHORUS 3.2 mg/dL (2.5-4.6); POTASSIUM 4.3 mmol/L (3.5-5.0); TOTAL PROTEIN 6.7 g/dL (6.7-8.2)
[2016-12-13] MEDS ORDERED: ONDANSETRON 4 MG/2 ML VIAL IVP ONE (07:18)
[2016-12-13] MEDS ORDERED: PROPOFOL 200 MG/20 ML VIAL IVP ONE (07:18)
[2016-12-13] MEDS ORDERED: ACETAMINOPHEN 1,000 MG/100 ML VIAL IV ONE (07:18)
[2016-12-13] MEDS ORDERED: ceFAZolin 1 GM VIAL IV ONE (07:18)
[2016-12-13] MEDS ORDERED: fentaNYL 100 MCG/2 ML VIAL IVP ONE (07:18)
[2016-12-13] MEDS ORDERED: KETOROLAC 30 MG/ML VIAL IVP ONE (07:18)
[2016-12-13] MEDS ORDERED: PHENYLEPHRINE 50 MG/5 ML VIAL IV ONE (07:18)
[2016-12-13] MEDS ORDERED: DEXAMETHASONE 4 MG/ML VIAL IVP ONE (07:18)
[2016-12-13] MEDS ORDERED: KETAMINE 500 MG/10 ML VIAL IVP ONE (07:18)
[2016-12-13] MEDS ORDERED: MIDAZOLAM 2 MG/2 ML VIAL IVP ONE (07:18)
[2016-12-13] MEDS ORDERED: LIDOCAINE-MPF 2% 5 ML VIAL IM ONE (07:18)
--- NOTE | 2016-12-13 07:49 | CONSULTATION NOTE ---
DATE OF CONSULTATION: 12/12/2016 00:00:00 REQUESTING PROVIDER: Dr. Farrar DATE OF CONSULTATION: 12/12/2016 REASON FOR CONSULTATION: Left femur fracture. HISTORY OF PRESENT ILLNESS: The patient is a 36-year-old female with severe Crohn disease who approxi mately 6 weeks ago suffered a right femur subtrochanteric fracture treated by intramedullary rodding by Dr. Sullivan. The patient had done well with that surgery and progress to healing and it reached the point of progressive ambulation without difficulty, and then on 12/12/2016 the patient was knocked o jessie, essentially by her dog on her front porch, landing on her porch on her left hip and fracturing h er left femur. She was brought to the emergency room with hip pain. PAST MEDICAL HISTORY: Prior medical history remarkable for use of multiple immunosuppressive medicati ons for control of her Crohn disease, a long list of medications is included in the record. Her prior surgeries include cholecystectomy, appendectomy, colonoscopy and right femur rodding. The patient's medical history, chronic headaches, migraines, GERD, Crohn's disease, depression, anxiety, osteoporos is. ALLERGIES: 1. BEE VENOM. 2. LATEX. SOCIAL HISTORY: The patient is . Her is an ER doctor in this hospital. She is a former smoker, nonsmoking now and does not drink alcohol or use illicit drugs. PHYSICAL EXAMINATION: GENERAL: Physical exam remarkable for a lady who is lying in bed, reasonably comfortable and not in s evere pain or distress. She is alert and oriented. LUNGS: Clear. HEART: Regular rate. EXTREMITIES: Her left femur is held in a hare traction splint and appears in normal alignment. There is thigh swelling, but not excessive and her neurovascular exam is intact. The right lower extremity has mild pain in the mid thigh, but good active and passive motion, normal neurovascular exam. X-rays were obtained of both femurs and the left femur has a short widely displaced subtrochanteric f racture, almost the identical pattern that was sustained on the right side 6 weeks ago. The right caterina e is healed with abundant callus and a stable marsha. IMPRESSION: A closed widely displaced short oblique, reverse obliquity fracture of the left subtrocha nteric femur. PLAN: Admission to the hospital and for scheduled intramedullary rodding of the left femur to be done in conjunction with Dr. Sullivan at the patient's request. JOB #: [id number] EXT JOB #:[id number]
[2016-12-13] MEDS ORDERED: BUPIVACAINE 0.25%-EPI 1:200000 PF 30 ML VIAL SUBQ ONE ×2 (08:37)
[2016-12-13] MEDS ORDERED: SODIUM CHLORIDE 0.9% 1,000 ML IV ONE (08:38)
[2016-12-13] MEDS ORDERED: LACTATED RINGERS 1,000 ML IV ONE ×2 (08:38→10:02)
[2016-12-13] MEDS ORDERED: SUMATRIPTAN 20 MG NAS PRN (09:00)
--- NOTE | 2016-12-13 09:40 | OPERATIVE REPORT ---
Operative Report - General Admit Date: 12/12/16 Procedure Date: 12/13/16 Planned Procedure: Cephalomedullary Nailing Left Femur Subtrochanteric Fracture Pre-Op Diagnosis: Left Femur Subtrochanteric Fracture Post Op Diagnosis: Same - Procedure Note Primary Surgeon: Kyra Cardoza MD Secondary Surgeon: Flo Sullivan MD Anesthesia Provider: Derick Mckenna CRNA Anesthesia Technique: General ET tube, Local Estimated Blood Loss (in cc): 200 Complications: None. - Other Other Information/Narrative: Fluids: 1000 mL Urine: Adequate. Implants: [employer]ya Natural Nail Titanium Nail, 11.5 x 360 mm. Lag Screw, 10.5 x 90 mm. Distal Interlock screw, 4.5 mm Condition: Stable. [facility]
--- NOTE | 2016-12-13 10:17 | XRAY Report ---
INTRAOPERATIVE LEFT FEMUR: 12/13/2016 CLINICAL INDICATION: ORIF. FINDINGS: Intraoperative imaging of the left femur demonstrates dynamic compression screw and IM dano fixation of the proximal femoral shaft fracture. One distal locking screw is noted. IMPRESSION: DYNAMIC COMPRESSION SCREW AND LONG IM DANO FIXATION OF LEFT FEMORAL SHAFT FRACTURE. One minute 17 seconds of fluoroscopy time was provided to Dr. Cardoza; 2 spot images obtained. JOB #: [id number] EXT JOB #:[id number]
[2016-12-13] MEDS ORDERED: HYDROmorphone 1 MG/ML SYRINGE ONE (10:25)
[2016-12-13] MEDS ORDERED: ONDANSETRON 4 MG/2 ML VIAL ONE (10:28)
--- NOTE | 2016-12-13 10:36 | OPERATIVE REPORT ---
DATE OF SURGERY: 12/13/2016 00:00:00 PREOPERATIVE DIAGNOSIS: Left femur subtrochanteric fracture after a ground level fall. POSTOPERATIVE DIAGNOSIS: Left femur subtrochanteric fracture after a ground level fall. PROCEDURE: Cephalomedullary nailing of left femur subtrochanteric fracture. PRIMARY SURGEON: yKra Cardoza MD SECONDARY SURGEON: Flo Sullivan MD ANESTHESIA: Derick Mckenna CRNA ANESTHESIA TECHNIQUE: General ET tube, local. BLOOD LOSS: 200 mL. COMPLICATIONS: None. PATHOLOGY: None. FLUIDS: 1000 mL. URINE: Adequate. IMPLANTS 1. Aliya titanium nail, 11.5 x 360 mm. 2. Lag screw, 10.5 x 90 mm. 3. Distal interlocking screw 4.5 x 45 mm. CONDITION AT END OF PROCEDURE: Stable. DISPOSITION: PACU, then Med/Surg. INDICATIONS: This is a 36-year-old female with multiple medical problems including Crohn disease for which she has been on chronic steroid use. She had recently (5 weeks ago) sustained a right femur sub trochanteric fracture thought to have been related to her use of Fosamax (sodium alendronate). She fell tripping over her dog yesterday sustaining a left subtrochanteric femur fracture in the same exact location on the opposite side. This was also found to be related to her chronic use of bone re placement therapy. Evaluation in the emergency room revealed a subtrochanteric reverse pattern with minimal comminution. It was elected to bring her to the operating room to perform a cephalomedullary nailing. PROCEDURE IN DETAIL: After consent and identification, the patient was brought to the operating room in a supine position on the hospital bed. After induction of a general endotracheal anesthesia and appropriate monitoring, the patient was pedersen sferred to the fracture table. A well-padded perineal post was placed. The left arm was brought up ov er the chest and secured to the opposite side of the table. The right upper extremity was outstretche d on an arm board. The right lower extremity was placed in a well-padded Brandt stirrup and flexed, ex ternally rotated and abducted to allow access for the C-arm. The left lower extremity was placed in a well-padded traction boot and secured with Coban. The perineal post was positioned properly. A Johnson catheter had been inserted prior to positioning the perineal post. We then used fluoroscopy to effect a manual reduction, getting a rough alignment of the fracture frag ments. The proximal fragment was flexed and externally rotated, necessitating a more posterior approa ch. We then conducted an appropriate time-out. After a timeout was conducted, we mapped out a proximal ob lique incision to allow for anterior and posterior translation. The subcutaneous fat was divided down to the external fascia of the gluteus medius muscle, which was divided longitudinally after palpatin g the proximal tip of the greater trochanter. We palpated the piriformis fossa with a finger in the p iriformis fossa, placed our guidewire just anterior to that point on the trochanteric crest. The guid ewire was then advanced. The 15 mm starting reamer was then advanced over the guidewire with the soft tissue protector in place. We then inserted the ball-tipped guidewire with the T handle reduction to ol. This was used with fluoroscopy to obtain a reduction and pass the reduction tool into the distal medullary canal. We then advanced the guidewire down to the knee. We verified the position of the marcela dewire on AP and lateral fluoroscopy. We sequentially reamed over the guidewire starting with a 9 mm reamer in 1 mm increments until we adin ched 12 mm. We then reamed in 0.5 mm increments up to 13 mm. We selected an 11.5 x 360 mm nail based on our measurement over the guidewire. This was assembled on the insertion tower and inserted into th e femur under fluoroscopic guidance. With the nail in good position, we used the guide to make an incision on the lateral thigh. We advanc ed the cannulas up to the lateral cortex. We then placed a guidewire into the femoral neck, which was in a center-center position. We then reamed over the guidewire and measured our depth at 95 mm. We s elected a 90 mm nail and elected to tap because of the very hard nature of her bone, which had been d etermined on the reaming of the medullary canal. We then inserted the 90 mm nail into a good position. With the 90 mm nail in good position, we placed our interlocking screw in the proximal nail. We then abducted the leg and used a perfect diomede technique and a lateral incision distally to place a single interlocking screw at the distal end of the dynamic screw hole from lateral to medial. All wounds were then thoroughly irrigated. The distal wounds were closed with single interrupted 2-0 Vicr yl subcuticular sutures. [place] were applied to the skin. The proximal wound was approximated with i nterrupted 2-0 Vicryl sutures to the gluteus medius external fascia followed by 2-0 subcuticular sutu res and stacy to the skin. [place] dressings were then applied to all 3 wounds. Final fluoroscopic images were obtained. The patient was then extubated and transferred to the recovery room in good condition having tolerate d the procedure well. JOB #: [id number] EXT JOB #:[id number]
[2016-12-13] MEDS ORDERED: SCOPOLAMINE PATCH TOP ONE (11:06)
[2016-12-13] MEDS: PROMETHAZINE 25 MG/1 ML VIAL ONE ×2 (11:16→11:58)
[2016-12-13] MEDS: ACETAMINOPHEN 1,000 MG/100 ML 100 ML IV SCH ×3 (11:55→21:57)
[2016-12-13] MEDS: KETOROLAC 15 MG/ML VIAL IVP PRN ×2 (12:24→20:10)
[2016-12-13] MEDS: azaTHIOprine 50 MG TABLET PO SCH (14:34)
[2016-12-13] MEDS: GABAPENTIN 300 MG CAPSULE PO SCH ×3 (14:35→21:50)
[2016-12-13] MEDS: FOLIC ACID 1 MG TABLET PO SCH (14:35)
[2016-12-13] MEDS: BUDESONIDE 3 MG CAPSULE PO SCH (14:35)
[2016-12-13] MEDS: SERTRALINE 50 MG TABLET PO SCH (14:35)
[2016-12-13] MEDS: CHOLECALCIFEROL 5,000 UNIT CAPSULE PO SCH (14:35)
[2016-12-13] MEDS: predniSONE 20 MG TABLET PO SCH (14:35)
[2016-12-13] MEDS: POLYETHYLENE GLYCOL 3350 17 GM PACKET PO SCH (14:35)
[2016-12-13] MEDS: FAMOTIDINE 20 MG TABLET PO SCH ×2 (14:35→21:50)
[2016-12-13] MEDS: SCOPOLAMINE PATCH TOP SCH (14:36)
[2016-12-13] MEDS: ceFAZolin 1 GM in SODIUM CHLORIDE 0.9% MINIBAG 100 ML IV SCH ×2 (14:42→20:20)
[2016-12-13] MEDS: PROMETHAZINE INJ 25 MG in SODIUM CHLORIDE 0.9% 50 ML IV PRN (16:13)
[2016-12-13 17:16] LABS: BILIRUBIN,URINE NEGATIVE (NEGATIVE)
[2016-12-13 17:51] LABS: UA CHARGE (STRIP ONLY) YES; UR CULTURE IF IND NOT INDICATED
[2016-12-13] MEDS: PROMETHAZINE 25 MG/1 ML VIAL IM PRN ×2 (18:10→22:14)
--- NOTE | 2016-12-13 18:29 | PROVIDER PROGRESS NOTE ---
Assessment/Plan - Problem List (1) Left femoral shaft fracture Qualifiers: Encounter type: initial encounter Fracture type: closed Fracture morphology: transverse Fracture alignment: displaced Qualified Code(s): S72.322A - Displaced transverse fracture of shaft of left femur, initial encounter for closed fracture Assessment/Plan: POD#0 s/p Cephalomedullary Nailing Left Femur Subtrochanteric Fracture Patient on dilaudid IV for pain control PT saw patient today still very slow and in pain Possible cause is fosamax patient may need to stop medication as this is second fx in just few months Qualifiers: Encounter type: initial encounter Fracture type: closed Fracture morphology: transverse Fracture alignment: displaced Qualified Code(s): S72.322A - Displaced transverse fracture of shaft of left femur, initial encounter for closed fracture (2) Crohn disease Conclusion/Plan: Currently not having a flare Continue home dose of prednisone 7 mg daily Continue home dose of budesonide Continue home dose of azathioprine Continue Humira weekly next dose scheduled for today will take home med Patient has chronic diarrhea for which she receives Lomotil at home this will be continued while hospitalized. Stable (3) Osteoporosis Conclusion/Plan: Patient has osteoporosis secondary to chronic steroid use. Patient now has had 2 femoral shaft fractures recently on the right currently on the left Fosamax has been related to femoral shaft fractures and patient is currently on Fosamax for osteoporosis. Continue vitamin D and calcium Consider stopping Fosamax given the second fracture will need to discuss with her PCP as an outpatient. (4) Depression Conclusion/Plan: currently stable continue home dose of Zoloft (5) Prophylactic use of low molecular weight heparin for venous thromboembolism Conclusion/Plan: Lovenox today - Current Meds Current Meds: Current Medications Generic Name Dose Route Start Last Admin Trade Name Maria E PRN Reason Stop Dose Admin Azathioprine 250 mg 12/13/16 09:00 12/13/16 14:34 Imuran PO Not Given DAILY [facility] Budesonide 9 mg 12/13/16 09:00 12/13/16 14:35 Entocort Ec PO Not Given DAILY [facility] Cholecalciferol 10,000 unit 12/13/16 09:00 12/13/16 14:35 Vitamin D3 PO Not Given DAILY [facility] Famotidine 20 mg 12/12/16 21:00 12/13/16 14:35 Pepcid PO Not Given BID [facility] Folic Acid 1 mg 12/13/16 09:00 12/13/16 14:35 PO Not Given DAILY [facility] Gabapentin 1,800 mg 12/12/16 21:00 12/12/16 20:27 Neurontin PO 1,800 mg QPM [facility] Administration Gabapentin 900 mg 12/13/16 09:00 12/13/16 14:36 Neurontin PO Not Given 0900,1400 [facility] Hydromorphone HCl 1 mg 12/12/16 16:03 12/13/16 18:15 Dilaudid Inj IVP 1 mg Q2HR PRN Administration Pain 8 to 10 Sodium Chloride 1,000 mls @ 100 mls/hr 12/12/16 17:00 12/13/16 16:16 Normal Saline 0.9% IV 100 mls/hr .Q10H [facility] Administration Cefazolin Sodium 1 gm/ Sodium 100 mls @ 200 mls/hr 12/13/16 14:00 12/13/16 14: 42 Chloride IV 12/14/16 02:29 200 mls/hr Q6H [facility] Administration Acetaminophen 100 mls @ 400 mls/hr 12/13/16 10:00 12/13/16 16:16 Ofirmev IV 400 mls/hr Q6H [facility] Administration Promethazine HCl 25 mg/ Sodium 51 mls @ 100 mls/hr 12/13/16 15:10 12/13/16 16: 13 Chloride IV 100 mls/hr Q6H PRN Administration Nausea / Vomiting Ketorolac Tromethamine 15 mg 12/13/16 09:47 12/13/16 12:24 Toradol Inj IVP 12/18/16 09:46 15 mg Q6HR PRN Administration PAIN Ondansetron HCl 4 mg 12/12/16 16:03 12/13/16 18:15 Zofran Odt TL 4 mg Q6HR PRN Administration Nausea / Vomiting Ondansetron HCl 4 mg 12/12/16 16:03 12/13/16 15:21 Zofran Inj IVP 4 mg Q6HR PRN Administration Nausea / Vomiting Oxycodone HCl 10 mg 12/12/16 16:03 12/13/16 13:46 Roxicodone PO 10 mg Q4HR PRN Administration Pain 8 to 10 Pantoprazole Sodium 40 mg 12/13/16 07:00 12/13/16 06:19 Protonix PO Not Given QDAC [facility] Polyethylene Glycol 17 gm 12/13/16 09:00 12/13/16 14:35 Miralax PO Not Given DAILY [facility] Prednisone 7 mg 12/13/16 09:00 12/13/16 14:35 Deltasone PO Not Given DAILY [facility] Prochlorperazine Edisylate 10 mg 12/12/16 16:03 12/13/16 13:46 Compazine Inj IVP 10 mg Q6HR PRN Administration Nausea / Vomiting Promethazine HCl 25 mg 12/12/16 16:03 12/13/16 18:10 Phenergan Inj IM 25 mg Q6HR PRN Administration Nausea / Vomiting Scopolamine HBr 1 patch 12/13/16 12:00 12/13/16 14:36 Transderm-Scop TOP Not Given Q3D [facility] Sertraline HCl 100 mg 12/13/16 09:00 12/13/16 14:35 Zoloft PO Not Given DAILY [facility] Sodium Chloride 10 ml 12/12/16 22:00 12/13/16 14:36 Normal Saline Flush 0.9% IVP Not Given Q8HR [facility] - Lab Result Lab results reviewed: Yes Fish Bone Diagrams: 12/13/16 05:33 12/13/16 05:33 - EKG Results EKG Interpreted Independently: Yes - Diagnostic Imaging Results Diagnostic Imaging Results: positive: Final report reviewed - Additional Planning Condition/Complexity: Guarded My Orders: My Active Orders 12/13/16 12:00 Scopolamine Patch [Transderm-Scop] 1 patch TOP Q3D 12/13/16 15:10 Promethazine Inj [Phenergan Inj] 25 mg Sodium Chloride 0.9% [Normal Saline 0.9 %] 50 ml IV Q6H 12/13/16 Dinner Regular Diet [DIET] 12/14/16 09:00 Patient Own Med [Patient Own Medication] 1 each SUBQ Q7D 12/15/16 07:00 Alendronate [Fosamax] 70 mg PO Q7D Consult/Specialty: PT, Other (Ortho) Plan Discussed with:: Patient, Family Time Spent: 15-30 minutes Subjective - Subjective Patient Reports: Other (Pain and nausea post op. Otherwise tolerated the surgery well. No chest pain or shortness of breath.) Nursing Reports: No Complaints Objective Vital Signs: Vital Signs - 24 hr 12/13/16 12/13/16 12/13/16 00:48 07:45 10:00 Temperature 36.7 C 37.5 C Heart Rate [ 99 112 H Brachial] Respiratory 16 18 Rate Blood Pressure 126/77 137/80 H [Left Brachial artery] O2 Saturation 93 94 98 12/13/16 12/13/16 12/13/16 10:05 10:10 10:15 Temperature Heart Rate [ Brachial] Respiratory Rate Blood Pressure [Left Brachial artery] O2 Saturation 98 98 99 12/13/16 12/13/16 12/13/16 10:20 10:25 10:30 Temperature Heart Rate [ Brachial] Respiratory Rate Blood Pressure [Left Brachial artery] O2 Saturation 99 98 100 12/13/16 12/13/16 12/13/16 10:35 10:45 11:00 Temperature Heart Rate [ Brachial] Respiratory Rate Blood Pressure [Left Brachial artery] O2 Saturation 99 100 97 12/13/16 12/13/16 12/13/16 11:15 11:35 12:00 Temperature 36.9 C Heart Rate [ 113 H Brachial] Respiratory 18 Rate Blood Pressure 120/66 [Left Brachial artery] O2 Saturation 96 98 96 12/13/16 12/13/16 12/13/16 12:30 13:00 16:26 Temperature 36.4 C L 36.4 C L 36.6 C Heart Rate [ 114 H 114 H 117 H Brachial] Respiratory 18 18 20 Rate Blood Pressure 116/69 139/76 H 126/71 [Left Brachial artery] O2 Saturation 94 95 90 L Oxygen O2 Source Room air I&O (Last 24 Hrs): Intake and Output Totals x24h 12/11/16 12/12/16 12/13/16 23:59 23:59 23:59 Intake Total 120 897 Output Total 400 Balance 120 497 General: Alert, Oriented x3, Cooperative, Mild distress (Pain and nausea) HEENT: Atraumatic, PERRLA, EOMI, Mucous membr. moist/pink Neck: Supple, No JVD, No thyromegaly, +2 carotid pulse wo bruit, No LAD Lymphatic: no adenopathy Neuro: Alert, Non Focal, CN 2-12 Grossly Intact, Oriented Times 3 Cardiovascular: Regular rate, Normal S1, Normal S2, No murmurs Respiratory: Chest non-tender, Breath sounds nml Abdomen: Normal bowel sounds, Soft, No tenderness, No hepatospenomegaly Extremities: No clubbing, No cyanosis, No edema, Normal pulses, Other (Left leg decreased ROM secondary to surgery, swelling, surgical site looks clean) Skin: No rashes, No breakdown - Results Results: Laboratory Results WBC 7.9 x10^3/uL (4.8-10.8) 12/13/16 05:33 RBC 3.95 10^6/uL (4.20-5.40) L 12/13/16 05:33 Hgb 11.8 g/dL (12.0-16.0) L 12/13/16 05:33 Hct 36.9 % (37.0-47.0) L 12/13/16 05:33 MCV 93.4 fL (81.0-99.0) 12/13/16 05:33 MCH 29.9 pg (27.0-31.0) 12/13/16 05:33 MCHC 32.0 g/dL (32.0-36.0) 12/13/16 05:33 RDW 16.9 % (12.0-15.0) H 12/13/16 05:33 Plt Count 237 10^3/uL (130-450) 12/13/16 05:33 MPV 10.1 fL (7.9-10.8) 12/13/16 05:33 Neut # 6.2 10^3/uL (1.5-6.6) 12/13/16 05:33 Lymph # 0.8 10^3/uL (1.5-3.5) L 12/13/16 05:33 [place] # 0.7 10^3/uL (0.0-1.0) 12/13/16 05:33 Eos # 0.1 10^3/uL (0.0-0.7) 12/13/16 05:33 Baso # 0.1 10^3/uL (0.0-0.1) 12/13/16 05:33 Absolute Nucleated RBC 0.00 x10^3/uL 12/13/16 05:33 Nucleated RBCs 0.0 /100WBC 12/13/16 05:33 PT 13.9 secs (9.9-12.6) H 12/13/16 05:33 INR 1.2 (0.8-1.2) 12/13/16 05:33 Sodium 140 mmol/L (135-145) 12/13/16 05:33 Potassium 4.3 mmol/L (3.5-5.0) 12/13/16 05:33 Chloride 102 mmol/L (101-111) 12/13/16 05:33 Carbon Dioxide 25 mmol/L (21-32) 12/13/16 05:33 Anion Gap 13.0 (6-13) 12/13/16 05:33 BUN 16 mg/dL (6-20) 12/13/16 05:33 Creatinine 0.4 mg/dL (0.4-1.0) 12/13/16 05:33 Estimated GFR (MDRD) 181 (>89) 12/13/16 05:33 Glucose 92 mg/dL (70-100) 12/13/16 05:33 Calcium 8.5 mg/dL (8.5-10.3) 12/13/16 05:33 Phosphorus 3.2 mg/dL (2.5-4.6) 12/13/16 05:33 Magnesium 1.8 mg/dL (1.7-2.8) 12/13/16 05:33 Total Bilirubin 1.3 mg/dL (0.2-1.0) H 12/13/16 05:33 AST 50 IU/L (10-42) H 12/13/16 05:33 ALT 54 IU/L (10-60) 12/13/16 05:33 Alkaline Phosphatase 166 IU/L (42-121) H 12/13/16 05:33 Total Protein 6.7 g/dL (6.7-8.2) 12/13/16 05:33 Albumin 3.8 g/dL (3.2-5.5) 12/13/16 05:33 Globulin 2.9 g/dL (2.1-4.2) 12/13/16 05:33 Albumin/Globulin Ratio 1.3 (1.0-2.2) 12/13/16 05:33 Lipase 37 U/L (22-51) 12/12/16 14:23 Serum HCG, Qual NEGATIVE 12/12/16 14:23 Urine Color YELLOW 12/13/16 17:00 Urine Clarity CLEAR (CLEAR) 12/13/16 17:00 Urine pH 6.0 PH (5.0-7.5) 12/13/16 17:00 Ur Specific [place] >=1.030 (1.002-1.030) H 12/13/16 17:00 Urine Protein NEGATIVE mg/dL (NEGATIVE) 12/13/16 17:00 Urine Glucose (UA) NEGATIVE mg/dL (NEGATIVE) 12/13/16 17:00 Urine Ketones 40 mg/dL (NEGATIVE) H 12/13/16 17:00 Urine Occult Blood NEGATIVE (NEGATIVE) 12/13/16 17:00 Urine Nitrite NEGATIVE (NEGATIVE) 12/13/16 17:00 Urine Bilirubin NEGATIVE (NEGATIVE) 12/13/16 17:00 Urine Urobilinogen 0.2 (NORMAL) E.U./dL (NORMAL) 12/13/16 17:00 Ur Leukocyte Esterase NEGATIVE (NEGATIVE) 12/13/16 17:00 Ur Microscopic Review NOT INDICATED 12/13/16 17:00 Urine Culture Comments NOT INDICATED 12/13/16 17:00 - Procedures Procedures: Procedures INSERT GASTRIC TUBE NEC (10/22/13) PARENTERAL INFUSION OF CONCENTRATED NUT. SUBSTANCE (10/16/14) REPOSITION R UP FEMUR WITH INTRAMED FIX, OPEN APPROACH (10/17/16) VENOUS CATHETERIZATION NEC (10/16/14)
[2016-12-13] MEDS: ENOXAPARIN 40 MG/0.4 ML SYRINGE SUBQ SCH (21:50)
[2016-12-14] MEDS: ONDANSETRON ODT 4 MG TABLET TL PRN ×3 (01:09→12:43)
[2016-12-14] MEDS: HYDROmorphone 1 MG/ML SYRINGE IVP PRN ×4 (01:41→22:58)
[2016-12-14] MEDS: PROCHLORPERAZINE 10 MG/2 ML VIAL IVP PRN ×4 (02:16→22:30)
[2016-12-14] MEDS: ceFAZolin 1 GM in SODIUM CHLORIDE 0.9% MINIBAG 100 ML IV SCH (02:16)
[2016-12-14] MEDS: ACETAMINOPHEN 1,000 MG/100 ML 100 ML IV SCH ×4 (03:22→22:30)
[2016-12-14] MEDS: ONDANSETRON 4 MG/2 ML VIAL IVP PRN ×3 (03:32→20:36)
[2016-12-14] MEDS: PROMETHAZINE 25 MG/1 ML VIAL IM PRN (04:54)
[2016-12-14 06:16] LABS: BASOPHILS % (AUTO) 0.4 %; EOSINOPHILS # (AUTO) 0.1 10^3/uL (0.0-0.7); EOSINOPHILS % (AUTO) 1.8 %; HCT - HEMATOCRIT 28.6 % (37.0-47.0); HGB - HEMOGLOBIN 9.1 g/dL (12.0-16.0); LYMPHOCYTES % (AUTO) 22.1 %; MEAN CORPUSCULAR HEMOGLOBIN 29.5 pg (27.0-31.0); MEAN CORPUSCULAR HGB CONC 31.8 g/dL (32.0-36.0); MEAN CORPUSCULAR VOLUME 92.7 fL (81.0-99.0); MEAN PLATELET VOLUME 10.3 fL (7.9-10.8); MONOCYTES # (AUTO) 0.8 10^3/uL (0.0-1.0); MONOCYTES % (AUTO) 18.4 %; NEUTROPHILS # (AUTO) 2.6 10^3/uL (1.5-6.6); NEUTROPHILS % (AUTO) 57.3 %; NUCLEATED RED BLOOD CELLS AUTO 0.1 /100WBC; RED BLOOD COUNT 3.08 10^6/uL (4.20-5.40); RED CELL DISTRIBUTION WIDTH 17.5 % (12.0-15.0); UNCORRECTED WHITE BLOOD COUNT 4.5 x10^3/uL; WHITE BLOOD COUNT 4.5 x10^3/uL (4.8-10.8)
[2016-12-14 06:33] LABS: ALBUMIN/GLOBULIN RATIO 1.1 (1.0-2.2); BILIRUBIN,TOTAL 0.9 mg/dL (0.2-1.0); CALCIUM 7.3 mg/dL (8.5-10.3); CREATININE 0.6 mg/dL (0.4-1.0); MAGNESIUM 1.8 mg/dL (1.7-2.8); PHOSPHORUS 2.5 mg/dL (2.5-4.6); POTASSIUM 3.9 mmol/L (3.5-5.0); TOTAL PROTEIN 5.8 g/dL (6.7-8.2)
[2016-12-14] MEDS: SODIUM CHLORIDE FLUSH 0.9% 10 ML SYRINGE IVP SCH ×3 (06:51→20:36)
[2016-12-14] MEDS: PANTOPRAZOLE 40 MG TABLET PO SCH (07:05)
[2016-12-14] MEDS: BUDESONIDE 3 MG CAPSULE PO SCH (08:17)
[2016-12-14] MEDS: azaTHIOprine 50 MG TABLET PO SCH (08:17)
[2016-12-14] MEDS: FOLIC ACID 1 MG TABLET PO SCH (08:18)
[2016-12-14] MEDS: SERTRALINE 50 MG TABLET PO SCH (08:18)
[2016-12-14] MEDS: CHOLECALCIFEROL 5,000 UNIT CAPSULE PO SCH (08:18)
[2016-12-14] MEDS: FAMOTIDINE 20 MG TABLET PO SCH ×2 (08:18→20:36)
[2016-12-14] MEDS: GABAPENTIN 300 MG CAPSULE PO SCH ×3 (08:18→20:36)
[2016-12-14] MEDS: POLYETHYLENE GLYCOL 3350 17 GM PACKET PO SCH (08:18)
[2016-12-14] MEDS: predniSONE 20 MG TABLET PO SCH (08:18)
[2016-12-14] MEDS: KETOROLAC 15 MG/ML VIAL IVP PRN ×2 (08:43→17:44)
--- NOTE | 2016-12-14 08:48 | PROVIDER PROGRESS NOTE ---
Subjective - General Admit Date: 12/12/16 Procedure Date: 12/13/16 Post Op Days: 1 Procedure Performed: IM rodding of left femur Objective - Patient Data Reviewed Vital Signs: Yes Vital Signs: Vital Signs x48h Temp Pulse Resp BP Pulse Ox 12/14/16 04:26 36.4 C L 123 H 20 113/74 96 Weight: Weight 12/12/16 12/13/16 12/14/16 23:59 23:59 23:59 Weight (kg) 102.512 kg Intake & Output: Intake and Output Totals x24h 12/12/16 12/13/16 12/14/16 23:59 23:59 23:59 Intake Total 120 1897 250 Output Total 2000 1150 Balance 120 -103 -900 - Lab Results Lab Results: 12/14/16 05:39 12/14/16 05:39 Other Lab Results: Lab Results x24hrs 12/14/16 12/14/16 12/13/16 Range/Units 05:39 05:39 17:00 WBC 4.5 L (4.8-10.8) x10^3/uL RBC 3.08 L (4.20-5.40) 10^6/uL Hgb 9.1 L (12.0-16.0) g/dL Hct 28.6 L (37.0-47.0) % MCV 92.7 (81.0-99.0) fL MCH 29.5 (27.0-31.0) pg MCHC 31.8 L (32.0-36.0) g/dL RDW 17.5 H (12.0-15.0) % Plt Count 270 (130-450) 10^3/uL MPV 10.3 (7.9-10.8) fL Neut # 2.6 (1.5-6.6) 10^3/uL Lymph # 1.0 L (1.5-3.5) 10^3/uL [place] # 0.8 (0.0-1.0) 10^3/uL Eos # 0.1 (0.0-0.7) 10^3/uL Baso # 0.0 (0.0-0.1) 10^3/uL Absolute Nucleated RBC 0.01 x10^3/uL Nucleated RBCs 0.1 /100WBC Sodium 138 (135-145) mmol/L Potassium 3.9 (3.5-5.0) mmol/L Chloride 102 (101-111) mmol/L Carbon Dioxide 20 L (21-32) mmol/L Anion Gap 16.0 H (6-13) BUN 17 (6-20) mg/dL Creatinine 0.6 (0.4-1.0) mg/dL Estimated GFR (MDRD) 113 (>89) Glucose 133 H (70-100) mg/dL Calcium 7.3 L (8.5-10.3) mg/dL Phosphorus 2.5 (2.5-4.6) mg/dL Magnesium 1.8 (1.7-2.8) mg/dL Total Bilirubin 0.9 (0.2-1.0) mg/dL AST 49 H (10-42) IU/L ALT 39 (10-60) IU/L Alkaline Phosphatase 100 (42-121) IU/L Total Protein 5.8 L (6.7-8.2) g/dL Albumin 3.0 L (3.2-5.5) g/dL Globulin 2.8 (2.1-4.2) g/dL Albumin/Globulin Ratio 1.1 (1.0-2.2) Urine Color YELLOW Urine Clarity CLEAR (CLEAR) Urine pH 6.0 (5.0-7.5) PH Ur Specific [place] >=1.030 H (1.002-1.030) Urine Protein NEGATIVE (NEGATIVE) mg/dL Urine Glucose (UA) NEGATIVE (NEGATIVE) mg/dL Urine Ketones 40 H (NEGATIVE) mg/dL Urine Occult Blood NEGATIVE (NEGATIVE) Urine Nitrite NEGATIVE (NEGATIVE) Urine Bilirubin NEGATIVE (NEGATIVE) Urine Urobilinogen 0.2 (NORMAL) (NORMAL) E.U./dL Ur Leukocyte Esterase NEGATIVE (NEGATIVE) Ur Microscopic Review NOT INDICATED Urine Culture Comments NOT INDICATED - Imaging Results Radiology Imaging: positive: EMP read indepedently - Current Medications Current Medications: Current Medications Generic Name Dose Route Start Last Admin Trade Name Freq PRN Reason Stop Dose Admin Azathioprine 250 mg 12/13/16 09:00 12/14/16 08:17 Imuran PO Not Given DAILY [facility] Budesonide 9 mg 12/13/16 09:00 12/14/16 08:17 Entocort Ec PO Not Given DAILY [facility] Cholecalciferol 10,000 unit 12/13/16 09:00 12/14/16 08:18 Vitamin D3 PO Not Given DAILY [facility] Enoxaparin Sodium 40 mg 12/13/16 21:00 12/13/16 21:50 Lovenox SUBQ 40 mg DAILY [facility] Administration Famotidine 20 mg 12/12/16 21:00 12/14/16 08:18 Pepcid PO Not Given BID [facility] Folic Acid 1 mg 12/13/16 09:00 12/14/16 08:18 PO Not Given DAILY [facility] Gabapentin 1,800 mg 12/12/16 21:00 12/13/16 21:50 Neurontin PO Not Given QPM [facility] Gabapentin 900 mg 12/13/16 09:00 12/14/16 08:18 Neurontin PO Not Given 0900,1400 [facility] Hydromorphone HCl 1 mg 12/12/16 16:03 12/14/16 04:56 Dilaudid Inj IVP 1 mg Q2HR PRN Administration Pain 8 to 10 Sodium Chloride 1,000 mls @ 100 mls/hr 12/12/16 17:00 12/13/16 22:34 Normal Saline 0.9% IV 100 mls/hr .Q10H [facility] Administration Acetaminophen 100 mls @ 400 mls/hr 12/13/16 10:00 12/14/16 03:22 Ofirmev IV 400 mls/hr Q6H [facility] Administration Promethazine HCl 25 mg/ Sodium 51 mls @ 100 mls/hr 12/13/16 15:10 12/13/16 16: 13 Chloride IV 100 mls/hr Q6H PRN Administration Nausea / Vomiting Ketorolac Tromethamine 15 mg 12/13/16 09:47 12/14/16 08:43 Toradol Inj IVP 12/18/16 09:46 15 mg Q6HR PRN Administration PAIN Ondansetron HCl 4 mg 12/12/16 16:03 12/14/16 07:05 Zofran Odt TL 4 mg Q6HR PRN Administration Nausea / Vomiting Ondansetron HCl 4 mg 12/12/16 16:03 12/14/16 03:32 Zofran Inj IVP 4 mg Q6HR PRN Administration Nausea / Vomiting Oxycodone HCl 10 mg 12/12/16 16:03 06/14/17 13:46 Roxicodone PO 10 mg Q4HR PRN Administration Pain 8 to 10 Pantoprazole Sodium 40 mg 12/13/16 07:00 12/14/16 07:05 Protonix PO Not Given QDAC [facility] Polyethylene Glycol 17 gm 12/13/16 09:00 12/14/16 08:18 Miralax PO Not Given DAILY [facility] Prednisone 7 mg 12/13/16 09:00 12/14/16 08:18 Deltasone PO Not Given DAILY [facility] Prochlorperazine Edisylate 10 mg 12/12/16 16:03 12/14/16 08:05 Compazine Inj IVP 10 mg Q6HR PRN Administration Nausea / Vomiting Promethazine HCl 25 mg 12/12/16 16:03 12/14/16 04:54 Phenergan Inj IM 25 mg Q6HR PRN Administration Nausea / Vomiting Scopolamine HBr 1 patch 12/13/16 12:00 12/13/16 14:36 Transderm-Scop TOP Not Given Q3D [facility] Sertraline HCl 100 mg 12/13/16 09:00 12/14/16 08:18 Zoloft PO Not Given DAILY [facility] Sodium Chloride 10 ml 12/12/16 22:00 12/14/16 06:51 Normal Saline Flush 0.9% IVP Not Given Q8HR [facility] Impression/Plan - Problem List Problem List: POD #1 Pt is progressing well but slowed by post-op nausea. Rec. continued rehab. Will have modified rehab due to the right hip pain (still)
[2016-12-14] MEDS ORDERED: ADALIMUMAB 40 MG SUBQ SCH (09:00)
[2016-12-14] MEDS: PROMETHAZINE INJ 25 MG in SODIUM CHLORIDE 0.9% 50 ML IV PRN (09:25)
[2016-12-14] MEDS: SODIUM CHLORIDE 0.9% 1,000 ML IV SCH ×2 (09:25→20:36)
[2016-12-14] MEDS: ENOXAPARIN 40 MG/0.4 ML SYRINGE SUBQ SCH (09:31)
--- NOTE | 2016-12-14 10:42 | XRAY Report ---
TWO VIEW LEFT FEMUR: 12/13/2016 CLINICAL INDICATION: Postop fracture fixation. FINDINGS: Portable frontal and lateral views of the left femur demonstrate dynamic compression screw and intramedullary dano fixation of the femoral fracture, with one distal locking screw in place. Ali gnment appears near anatomic. IMPRESSION: DYNAMIC COMPRESSION SCREW AND LONG INTRAMEDULLARY DANO FIXATION OF THE PROXIMAL LEFT FEMO RAL SHAFT FRACTURE. JOB #: [id number] EXT JOB #:[id number]
[2016-12-14] MEDS: DEXAMETHASONE 4 MG/ML VIAL IVP SCH (13:05)
[2016-12-14] MEDS: LORazepam 2 MG/ML SYRINGE IVP PRN (17:43)
[2016-12-14] MEDS: SODIUM CHLORIDE FLUSH 0.9% 10 ML SYRINGE IVP PRN ×3 (17:44→22:59)
[2016-12-15] MEDS: KETOROLAC 15 MG/ML VIAL IVP PRN ×2 (00:19→06:13)
[2016-12-15] MEDS: LORazepam 2 MG/ML SYRINGE IVP PRN ×2 (00:20→06:14)
[2016-12-15] MEDS: diphenhydrAMINE INJ 50 MG/ML VIAL IVP PRN ×3 (00:20→13:00)
[2016-12-15] MEDS: SODIUM CHLORIDE FLUSH 0.9% 10 ML SYRINGE IVP PRN (00:21)
[2016-12-15] MEDS: HYDROmorphone 1 MG/ML SYRINGE IVP PRN ×6 (00:44→13:56)
[2016-12-15] MEDS: PROMETHAZINE INJ 25 MG in SODIUM CHLORIDE 0.9% 50 ML IV PRN (00:55)
[2016-12-15] MEDS: ACETAMINOPHEN 1,000 MG/100 ML 100 ML IV SCH ×3 (03:50→16:52)
[2016-12-15] MEDS: SODIUM CHLORIDE FLUSH 0.9% 10 ML SYRINGE IVP SCH ×3 (05:08→13:59)
[2016-12-15] MEDS: SODIUM CHLORIDE 0.9% 1,000 ML IV SCH ×2 (05:12→09:14)
[2016-12-15 06:24] LABS: BASOPHILS % (AUTO) 0.1 %; EOSINOPHILS % (AUTO) 1.6 %; HCT - HEMATOCRIT 20.1 % (37.0-47.0); LYMPHOCYTES # (AUTO) 0.8 10^3/uL (1.5-3.5); LYMPHOCYTES % (AUTO) 26.6 %; MEAN CORPUSCULAR HEMOGLOBIN 29.8 pg (27.0-31.0); MEAN CORPUSCULAR HGB CONC 32.8 g/dL (32.0-36.0); MEAN CORPUSCULAR VOLUME 90.9 fL (81.0-99.0); MEAN PLATELET VOLUME 9.5 fL (7.9-10.8); MONOCYTES # (AUTO) 0.6 10^3/uL (0.0-1.0); MONOCYTES % (AUTO) 18.1 %; NEUTROPHILS # (AUTO) 1.6 10^3/uL (1.5-6.6); NEUTROPHILS % (AUTO) 53.6 %; NUCLEATED RED BLOOD CELLS AUTO 0.1 /100WBC; RED BLOOD COUNT 2.21 10^6/uL (4.20-5.40); UNCORRECTED WHITE BLOOD COUNT 3.1 x10^3/uL; WHITE BLOOD COUNT 3.1 x10^3/uL (4.8-10.8)
[2016-12-15 06:29] LABS: ALBUMIN/GLOBULIN RATIO 0.9 (1.0-2.2); BILIRUBIN,TOTAL 0.5 mg/dL (0.2-1.0); CALCIUM 6.8 mg/dL (8.5-10.3); CREATININE 0.4 mg/dL (0.4-1.0); POTASSIUM 3.5 mmol/L (3.5-5.0); TOTAL PROTEIN 5.2 g/dL (6.7-8.2)
[2016-12-15 06:35] LABS: HGB - HEMOGLOBIN 6.6 g/dL (12.0-16.0)
[2016-12-15] MEDS ORDERED: ALENDRONATE 70 MG TABLET PO SCH (07:00)
[2016-12-15] MEDS: PANTOPRAZOLE 40 MG TABLET PO SCH (07:13)
[2016-12-15] MEDS ORDERED: PANTOPRAZOLE 40 MG VIAL IVP SCH (08:00)
[2016-12-15] MEDS ORDERED: ACETAMINOPHEN 325 MG TABLET PO ONE (08:00)
[2016-12-15] MEDS: ONDANSETRON 4 MG/2 ML VIAL IVP PRN ×2 (08:47→14:16)
[2016-12-15] MEDS: POLYETHYLENE GLYCOL 3350 17 GM PACKET PO SCH (08:53)
[2016-12-15] MEDS: ENOXAPARIN 40 MG/0.4 ML SYRINGE SUBQ SCH (08:53)
[2016-12-15] MEDS: SERTRALINE 50 MG TABLET PO SCH (08:54)
[2016-12-15] MEDS: azaTHIOprine 50 MG TABLET PO SCH (08:54)
[2016-12-15] MEDS: FAMOTIDINE 20 MG TABLET PO SCH (08:54)
[2016-12-15] MEDS: oxyCODONE 5 MG TABLET PO PRN ×3 (08:54→16:53)
[2016-12-15] MEDS: GABAPENTIN 300 MG CAPSULE PO SCH ×2 (08:55→13:19)
[2016-12-15] MEDS: FOLIC ACID 1 MG TABLET PO SCH (08:55)
[2016-12-15] MEDS: DEXAMETHASONE 4 MG/ML VIAL IVP SCH (08:55)
[2016-12-15] MEDS: BUDESONIDE 3 MG CAPSULE PO SCH (09:00)
[2016-12-15] MEDS: CHOLECALCIFEROL 5,000 UNIT CAPSULE PO SCH (09:00)
--- NOTE | 2016-12-15 10:33 | PROVIDER PROGRESS NOTE ---
Subjective - General Admit Date: 12/12/16 Procedure Date: 12/13/16 Post Op Days: 2 Procedure Performed: IM rodding of left femur - Review of Systems Wound/Incisions: positive: Dressing dry and intact General: positive: Weakness Musculoskeletal: positive: Joint swelling Objective - Patient Data Reviewed Vital Signs: Yes Vital Signs: Vital Signs x48h Temp Pulse Resp BP Pulse Ox 12/15/16 08:27 36.9 C 91 18 110/68 92 12/15/16 06:05 36.9 C 89 16 115/65 96 Intake & Output: Intake and Output Totals x24h 12/13/16 12/14/16 12/15/16 23:59 23:59 23:59 Intake Total 1897 2681 1011 Output Total 1999 2350 450 Balance -103 331 561 - Lab Results Lab Results: 12/15/16 05:59 12/15/16 05:59 Other Lab Results: Lab Results x24hrs 12/15/16 12/15/16 12/15/16 Range/Units 08:15 05:59 05:59 WBC (4.8-10.8) x10^3/uL RBC (4.20-5.40) 10^6/uL Hgb (12.0-16.0) g/dL Hct (37.0-47.0) % MCV (81.0-99.0) fL MCH (27.0-31.0) pg MCHC (32.0-36.0) g/dL RDW (12.0-15.0) % Plt Count (130-450) 10^3/uL MPV (7.9-10.8) fL Neut # (1.5-6.6) 10^3/uL Lymph # (1.5-3.5) 10^3/uL Hughes # (0.0-1.0) 10^3/uL Eos # (0.0-0.7) 10^3/uL Baso # (0.0-0.1) 10^3/uL Absolute Nucleated RBC x10^3/uL Nucleated RBCs /100WBC Sodium 137 (135-145) mmol/L Potassium 3.5 (3.5-5.0) mmol/L Chloride 105 (101-111) mmol/L Carbon Dioxide 24 (21-32) mmol/L Anion Gap 8.0 (6-13) BUN 11 (6-20) mg/dL Creatinine 0.4 (0.4-1.0) mg/dL Estimated GFR (MDRD) 181 (>89) Glucose 109 H (70-100) mg/dL Calcium 6.8 L (8.5-10.3) mg/dL Total Bilirubin 0.5 (0.2-1.0) mg/dL AST 40 (10-42) IU/L ALT 30 (10-60) IU/L Alkaline Phosphatase 80 (42-121) IU/L Total Protein 5.2 L (6.7-8.2) g/dL Albumin 2.4 L (3.2-5.5) g/dL Globulin 2.8 (2.1-4.2) g/dL Albumin/Globulin Ratio 0.9 L (1.0-2.2) Blood Type AB POSITIVE Blood Type Recheck AB POSITIVE Antibody Screen NEGATIVE Crossmatch IS Only See Detail 12/15/16 Range/Units 05:59 WBC 3.1 L (4.8-10.8) x10^3/uL RBC 2.21 L (4.20-5.40) 10^6/uL Hgb 6.6 L* (12.0-16.0) g/dL Hct 20.1 L (37.0-47.0) % MCV 90.9 (81.0-99.0) fL MCH 29.8 (27.0-31.0) pg MCHC 32.8 (32.0-36.0) g/dL RDW 18.0 H (12.0-15.0) % Plt Count 193 (130-450) 10^3/uL MPV 9.5 (7.9-10.8) fL Neut # 1.6 (1.5-6.6) 10^3/uL Lymph # 0.8 L (1.5-3.5) 10^3/uL Hughes # 0.6 (0.0-1.0) 10^3/uL Eos # 0.0 (0.0-0.7) 10^3/uL Baso # 0.0 (0.0-0.1) 10^3/uL Absolute Nucleated RBC 0.00 x10^3/uL Nucleated RBCs 0.1 /100WBC Sodium (135-145) mmol/L Potassium (3.5-5.0) mmol/L Chloride (101-111) mmol/L Carbon Dioxide (21-32) mmol/L Anion Gap (6-13) BUN (6-20) mg/dL Creatinine (0.4-1.0) mg/dL Estimated GFR (MDRD) (>89) Glucose (70-100) mg/dL Calcium (8.5-10.3) mg/dL Total Bilirubin (0.2-1.0) mg/dL AST (10-42) IU/L ALT (10-60) IU/L Alkaline Phosphatase (42-121) IU/L Total Protein (6.7-8.2) g/dL Albumin (3.2-5.5) g/dL Globulin (2.1-4.2) g/dL Albumin/Globulin Ratio (1.0-2.2) Blood Type Blood Type Recheck Antibody Screen Crossmatch IS Only - Current Medications Current Medications: Current Medications Generic Name Dose Route Start Last Admin Trade Name Freq PRN Reason Stop Dose Admin Alendronate Sodium 70 mg 12/15/16 07:00 12/15/16 07:13 Fosamax PO Not Given Q7D MYRON Azathioprine 250 mg 12/13/16 09:00 12/15/16 08:54 Imuran PO 250 mg DAILY MYRON Administration Budesonide 9 mg 12/13/16 09:00 12/15/16 09:00 Entocort Ec PO 9 mg DAILY MYRON Administration Cholecalciferol 10,000 unit 12/13/16 09:00 12/15/16 09:00 Vitamin D3 PO 10,000 unit DAILY MYRON Administration Dexamethasone 4 mg 12/14/16 13:00 12/15/16 08:55 Decadron IVP 4 mg DAILY MYRON Administration Diphenhydramine HCl 25 mg 12/14/16 23:03 12/15/16 06:14 Benadryl Inj IVP 25 mg Q6H PRN Administration Agitation Enoxaparin Sodium 40 mg 12/13/16 21:00 12/15/16 08:53 Lovenox SUBQ 40 mg DAILY MYRON Administration Famotidine 20 mg 12/12/16 21:00 12/15/16 08:54 Pepcid PO 20 mg BID MYRON Administration Folic Acid 1 mg 12/13/16 09:00 12/15/16 08:55 PO 1 mg DAILY MYRON Administration Gabapentin 1,800 mg 12/12/16 21:00 12/14/16 20:36 Neurontin PO Not Given QPM MYRON Gabapentin 900 mg 12/13/16 09:00 12/15/16 08:55 Neurontin PO 900 mg 0900,1400 MYRON Administration Hydromorphone HCl 1 mg 12/12/16 16:03 12/15/16 08:51 Dilaudid Inj IVP 1 mg Q2HR PRN Administration Pain 8 to 10 Sodium Chloride 1,000 mls @ 100 mls/hr 12/12/16 17:00 12/15/16 09:14 Normal Saline 0.9% IV 100 mls/hr .Q10H MYRON Administration Acetaminophen 100 mls @ 400 mls/hr 12/13/16 10:00 12/15/16 09:41 Ofirmev IV 400 mls/hr Q6H MYRON Administration Promethazine HCl 25 mg/ Sodium 51 mls @ 100 mls/hr 12/13/16 15:10 12/15/16 00: 55 Chloride IV 100 mls/hr Q6H PRN Administration Nausea / Vomiting Lorazepam 1 mg 12/14/16 12:40 12/15/16 06:14 Ativan Inj IVP 1 mg Q6H PRN Administration Nausea / Vomiting Ondansetron HCl 4 mg 12/12/16 16:03 12/14/16 12:43 Zofran Odt TL 4 mg Q6HR PRN Administration Nausea / Vomiting Ondansetron HCl 4 mg 12/12/16 16:03 12/15/16 08:47 Zofran Inj IVP 4 mg Q6HR PRN Administration Nausea / Vomiting Oxycodone HCl 10 mg 12/12/16 16:03 12/15/16 08:54 Roxicodone PO 10 mg Q4HR PRN Administration Pain 8 to 10 Pantoprazole Sodium 40 mg 12/15/16 08:00 12/15/16 08:55 Protonix IVP 40 mg QDAC MYRON Administration (Adalimumab [Humira] 1 each 12/14/16 09:00 12/14/16 10:36 40 Mg) Subq SUBQ 1 each Injection Q7D MYRON Administration Polyethylene Glycol 17 gm 12/13/16 09:00 12/15/16 08:53 Miralax PO 17 gm DAILY MYRON Administration Prochlorperazine Edisylate 10 mg 12/12/16 16:03 12/14/16 22:30 Compazine Inj IVP 10 mg Q6HR PRN Administration Nausea / Vomiting Promethazine HCl 25 mg 12/12/16 16:03 12/14/16 04:54 Phenergan Inj IM 25 mg Q6HR PRN Administration Nausea / Vomiting Scopolamine HBr 1 patch 12/13/16 12:00 12/13/16 14:36 Transderm-Scop TOP Not Given Q3D MYRON Sertraline HCl 100 mg 12/13/16 09:00 12/15/16 08:54 Zoloft PO 100 mg DAILY MYRON Administration Sodium Chloride 10 ml 12/12/16 16:03 12/15/16 00:21 Normal Saline Flush 0.9% IVP 10 ml PRN PRN Administration NEEDED PER PROVIDER ORDERS Sodium Chloride 10 ml 12/12/16 22:00 12/15/16 08:53 Normal Saline Flush 0.9% IVP 10 ml Q8HR MYRON Administration - Physical Exam Wound/Incisions: positive: Dressing dry and intact General Appearance: positive: No acute distress Extremities: positive: Joint swelling Neurologic/Psychiatric: positive: Oriented x3, Motor nml, Sensation nml, Mood/ affect nml Impression/Plan - Problem List Problem List: POD#3 Pt has post-op anemia and is being transfused today. Will resume PT after transfusion.
[2016-12-15] MEDS: PROCHLORPERAZINE 10 MG/2 ML VIAL IVP PRN (11:17)
[2016-12-15] MEDS: ALPRAZolam 0.25 MG TABLET PO PRN ×2 (11:21→16:52)
[2016-12-15 18:39] LABS: BASOPHILS % (AUTO) 0.2 %; EOSINOPHILS % (AUTO) 0.4 %; HCT - HEMATOCRIT 27.3 % (37.0-47.0); HGB - HEMOGLOBIN 9.1 g/dL (12.0-16.0); LYMPHOCYTES % (AUTO) 11.6 %; MEAN CORPUSCULAR HEMOGLOBIN 29.8 pg (27.0-31.0); MEAN CORPUSCULAR HGB CONC 33.3 g/dL (32.0-36.0); MEAN CORPUSCULAR VOLUME 89.6 fL (81.0-99.0); MEAN PLATELET VOLUME 9.9 fL (7.9-10.8); NEUTROPHILS % (AUTO) 72.8 %; RED BLOOD COUNT 3.04 10^6/uL (4.20-5.40); RED CELL DISTRIBUTION WIDTH 18.6 % (12.0-15.0); UNCORRECTED WHITE BLOOD COUNT 5.1 x10^3/uL; WHITE BLOOD COUNT 4.4 x10^3/uL (4.8-10.8)
[2016-12-15 18:40] LABS: PLATELET ESTIMATE, MANUAL NORMAL (130-450,000) (NORMAL); PLATELET MORPHOLOGY PLATELET CLUMPING (NORMAL)
[2016-12-15 18:41] LABS: WBC MORPHOLOGY (MULTIPLE) 1+ VACUOLATION (NORMAL)
[2016-12-15 18:43] LABS: BAND NEUTROPHILS % (MANUAL) 19 %; EOSINOPHILS % (MANUAL) 1 %; LYMPHOCYTES % (MANUAL) 16 %; NEUTROPHILS % (MANUAL) 49 %; NP AUTO DIFFERENTIAL? YES; NP MAN DIFFERENTIAL? NO; TOTAL CELLS COUNTED 100
[2016-12-15 23:58] LABS: BASOPHILS % (AUTO) 0.1 %; EOSINOPHILS % (AUTO) 0.5 %; HCT - HEMATOCRIT 24.5 % (37.0-47.0); HGB - HEMOGLOBIN 8.2 g/dL (12.0-16.0); LYMPHOCYTES # (AUTO) 0.7 10^3/uL (1.5-3.5); LYMPHOCYTES % (AUTO) 17.6 %; MEAN CORPUSCULAR HEMOGLOBIN 29.3 pg (27.0-31.0); MEAN CORPUSCULAR HGB CONC 33.3 g/dL (32.0-36.0); MEAN CORPUSCULAR VOLUME 87.9 fL (81.0-99.0); MEAN PLATELET VOLUME 9.6 fL (7.9-10.8); MONOCYTES # (AUTO) 0.6 10^3/uL (0.0-1.0); MONOCYTES % (AUTO) 15.8 %; NEUTROPHILS # (AUTO) 2.5 10^3/uL (1.5-6.6); NUCLEATED RED BLOOD CELLS AUTO 0.2 /100WBC; RED BLOOD COUNT 2.78 10^6/uL (4.20-5.40); RED CELL DISTRIBUTION WIDTH 18.3 % (12.0-15.0); UNCORRECTED WHITE BLOOD COUNT 3.8 x10^3/uL; WHITE BLOOD COUNT 3.8 x10^3/uL (4.8-10.8)
[2016-12-16] MEDS: SODIUM CHLORIDE FLUSH 0.9% 10 ML SYRINGE IVP PRN (03:13)
[2016-12-16] MEDS: ONDANSETRON 4 MG/2 ML VIAL IVP PRN (03:13)
[2016-12-16] MEDS: HYDROmorphone 1 MG/ML SYRINGE IVP PRN ×3 (03:14→20:39)
[2016-12-16] MEDS: diphenhydrAMINE INJ 50 MG/ML VIAL IVP PRN (03:14)
[2016-12-16] MEDS: FAMOTIDINE 20 MG TABLET PO SCH ×3 (04:34→20:40)
[2016-12-16] MEDS: GABAPENTIN 300 MG CAPSULE PO SCH ×4 (04:34→20:40)
[2016-12-16] MEDS: SODIUM CHLORIDE FLUSH 0.9% 10 ML SYRINGE IVP SCH ×4 (04:35→20:40)
[2016-12-16] MEDS: ACETAMINOPHEN 1,000 MG/100 ML 100 ML IV SCH ×2 (04:35→04:38)
[2016-12-16] MEDS: PANTOPRAZOLE 40 MG VIAL IVP SCH ×3 (04:35→20:40)
[2016-12-16] MEDS: SODIUM CHLORIDE 0.9% 1,000 ML IV SCH ×3 (04:36→16:08)
[2016-12-16] MEDS: PROCHLORPERAZINE 10 MG/2 ML VIAL IVP PRN ×3 (05:26→22:20)
[2016-12-16 06:15] LABS: BASOPHILS % (AUTO) 0.2 %; EOSINOPHILS # (AUTO) 0.1 10^3/uL (0.0-0.7); EOSINOPHILS % (AUTO) 1.5 %; HCT - HEMATOCRIT 25.2 % (37.0-47.0); HGB - HEMOGLOBIN 8.1 g/dL (12.0-16.0); LYMPHOCYTES % (AUTO) 23.1 %; MEAN CORPUSCULAR HEMOGLOBIN 28.9 pg (27.0-31.0); MEAN CORPUSCULAR VOLUME 90.1 fL (81.0-99.0); MEAN PLATELET VOLUME 9.4 fL (7.9-10.8); MONOCYTES # (AUTO) 0.6 10^3/uL (0.0-1.0); MONOCYTES % (AUTO) 14.4 %; NEUTROPHILS # (AUTO) 2.5 10^3/uL (1.5-6.6); NEUTROPHILS % (AUTO) 60.8 %; NUCLEATED RED BLOOD CELLS AUTO 0.3 /100WBC; RED CELL DISTRIBUTION WIDTH 18.4 % (12.0-15.0); UNCORRECTED WHITE BLOOD COUNT 4.1 x10^3/uL; WHITE BLOOD COUNT 4.1 x10^3/uL (4.8-10.8)
[2016-12-16 06:25] LABS: ALBUMIN/GLOBULIN RATIO 1.1 (1.0-2.2); BILIRUBIN,TOTAL 0.7 mg/dL (0.2-1.0); CALCIUM 7.2 mg/dL (8.5-10.3); CREATININE 0.4 mg/dL (0.4-1.0); POTASSIUM 3.9 mmol/L (3.5-5.0)
[2016-12-16] MEDS: azaTHIOprine 50 MG TABLET PO SCH (08:12)
[2016-12-16] MEDS: BUDESONIDE 3 MG CAPSULE PO SCH (08:13)
[2016-12-16] MEDS: CHOLECALCIFEROL 5,000 UNIT CAPSULE PO SCH (08:13)
[2016-12-16] MEDS: ONDANSETRON ODT 4 MG TABLET TL PRN ×2 (08:13→16:07)
[2016-12-16] MEDS: oxyCODONE 5 MG TABLET PO PRN ×2 (08:14→13:41)
[2016-12-16] MEDS: ALPRAZolam 0.25 MG TABLET PO PRN ×2 (08:14→12:04)
[2016-12-16] MEDS: SERTRALINE 50 MG TABLET PO SCH (08:14)
[2016-12-16] MEDS: POLYETHYLENE GLYCOL 3350 17 GM PACKET PO SCH (08:14)
[2016-12-16] MEDS: FOLIC ACID 1 MG TABLET PO SCH (08:14)
[2016-12-16] MEDS: SCOPOLAMINE PATCH TOP SCH (08:19)
--- NOTE | 2016-12-16 08:47 | PROVIDER PROGRESS NOTE ---
Assessment/Plan - Problem List (1) Left femoral shaft fracture Qualifiers: Encounter type: initial encounter Fracture type: closed Fracture morphology: transverse Fracture alignment: displaced Qualified Code(s): S72.322A - Displaced transverse fracture of shaft of left femur, initial encounter for closed fracture Assessment/Plan: POD#1 s/p Cephalomedullary Nailing Left Femur Subtrochanteric Fracture Patient on dilaudid IV for pain control Physical therapy working with patient and she was progressing slowly as yesterday she felt very dizzy with standing Possible cause of fracture fosamax patient may need to stop medication as this is second fx in just few months Qualifiers: Encounter type: initial encounter Fracture type: closed Fracture morphology: transverse Fracture alignment: displaced Qualified Code(s): S72.322A - Displaced transverse fracture of shaft of left femur, initial encounter for closed fracture (2) Acute Blood Loss Anemia Conclusion/Plan: Hb fell from 11.8 to 9.1 now 6.6 Will transfuse 2 units of PRBCs today Concern for GI bleed in patient with [facility]hns on [facility] steroids vs blood loss into the the leg do to fracture and surgery Place on IV protonix BID Hold steroids Stool occult blood test No BMs since admission Patient was vomiting but no hematemesis Monitor H&H q 6 Consider EGD if stool positive for blood (3) Crohn disease Conclusion/Plan: Currently not having a flare Hold home dose of prednisone 7 mg daily for possible GI bleed Continue home dose of budesonide Continue home dose of azathioprine Continue Humira weekly next dose scheduled for today will take home med Patient has chronic diarrhea for which she receives Lomotil at home this will be continued while hospitalized. Stable (4) Osteoporosis Conclusion/Plan: Patient has osteoporosis secondary to chronic steroid use. Patient now has had 2 femoral shaft fractures recently on the right currently on the left Fosamax has been related to femoral shaft fractures and patient is currently on Fosamax for osteoporosis. Continue vitamin D and calcium Consider stopping Fosamax given the second fracture will need to discuss with her PCP as an outpatient. (5) Depression Conclusion/Plan: currently stable continue home dose of Zoloft (6) Prophylactic use of low molecular weight heparin for venous thromboembolism Conclusion/Plan: Lovenox today - Current Meds Current Meds: Current Medications Generic Name Dose Route Start Last Admin Trade Name Freq PRN Reason Stop Dose Admin Alendronate Sodium 70 mg 12/15/16 07:00 12/15/16 07:13 Fosamax PO Not Given Q7D MYRON Alprazolam 0.5 mg 12/12/16 17:58 12/16/16 08:14 Xanax PO 0.5 mg 5XD PRN Administration Anxiety Azathioprine 250 mg 12/13/16 09:00 12/16/16 08:12 Imuran PO 250 mg DAILY MYRON Administration Budesonide 9 mg 12/13/16 09:00 12/16/16 08:13 Entocort Ec PO 9 mg DAILY MYRON Administration Cholecalciferol 10,000 unit 12/13/16 09:00 12/16/16 08:13 Vitamin D3 PO 10,000 unit DAILY MYRON Administration Diphenhydramine HCl 25 mg 12/14/16 23:03 12/16/16 03:14 Benadryl Inj IVP 25 mg Q6H PRN Administration Agitation Famotidine 20 mg 12/12/16 21:00 12/16/16 08:14 Pepcid PO 20 mg BID MYRON Administration Folic Acid 1 mg 12/13/16 09:00 12/16/16 08:14 PO 1 mg DAILY MYRON Administration Gabapentin 1,800 mg 12/12/16 21:00 12/16/16 04:34 Neurontin PO Not Given QPM MYRON Gabapentin 900 mg 12/13/16 09:00 12/16/16 08:13 Neurontin PO 900 mg 0900,1400 MYRON Administration Hydromorphone HCl 1 mg 12/12/16 16:03 12/16/16 05:25 Dilaudid Inj IVP 1 mg Q2HR PRN Administration Pain 8 to 10 Sodium Chloride 1,000 mls @ 100 mls/hr 12/12/16 17:00 12/16/16 04:36 Normal Saline 0.9% IV Not Given .Q10H MYRON Acetaminophen 100 mls @ 400 mls/hr 12/13/16 10:00 12/16/16 04:38 Ofirmev IV 400 mls/hr Q6H MYRON Administration Promethazine HCl 25 mg/ Sodium 51 mls @ 100 mls/hr 12/13/16 15:10 12/15/16 00: 55 Chloride IV 100 mls/hr Q6H PRN Administration Nausea / Vomiting Lorazepam 1 mg 12/14/16 12:40 12/15/16 06:14 Ativan Inj IVP 1 mg Q6H PRN Administration Nausea / Vomiting Ondansetron HCl 4 mg 12/12/16 16:03 12/16/16 08:13 Zofran Odt TL 4 mg Q6HR PRN Administration Nausea / Vomiting Ondansetron HCl 4 mg 12/12/16 16:03 12/16/16 03:13 Zofran Inj IVP 4 mg Q6HR PRN Administration Nausea / Vomiting Oxycodone HCl 10 mg 12/12/16 16:03 12/16/16 08:14 Roxicodone PO 10 mg Q4HR PRN Administration Pain 8 to 10 Pantoprazole Sodium 40 mg 12/15/16 21:00 12/16/16 08:14 Protonix IVP 40 mg BID MYRON Administration (Adalimumab [Humira] 1 each 12/14/16 09:00 12/14/16 10:36 40 Mg) Subq SUBQ 1 each Injection Q7D MYRON Administration Polyethylene Glycol 17 gm 12/13/16 09:00 12/16/16 08:14 Miralax PO 17 gm DAILY MYRON Administration Prochlorperazine Edisylate 10 mg 12/12/16 16:03 12/16/16 05:26 Compazine Inj IVP 10 mg Q6HR PRN Administration Nausea / Vomiting Promethazine HCl 25 mg 12/12/16 16:03 12/14/16 04:54 Phenergan Inj IM 25 mg Q6HR PRN Administration Nausea / Vomiting Scopolamine HBr 1 patch 12/13/16 12:00 12/16/16 08:19 Transderm-Scop TOP 1 patch Q3D MYRON Administration Sertraline HCl 100 mg 12/13/16 09:00 12/16/16 08:14 Zoloft PO 100 mg DAILY MYRON Administration Sodium Chloride 10 ml 12/12/16 16:03 12/16/16 03:13 Normal Saline Flush 0.9% IVP 10 ml PRN PRN Administration NEEDED PER PROVIDER ORDERS Sodium Chloride 10 ml 12/12/16 22:00 12/16/16 05:27 Normal Saline Flush 0.9% IVP 10 ml Q8HR MYRON Administration - Lab Result Lab results reviewed: Yes Fish Bone Diagrams: 12/16/16 05:28 12/16/16 05:28 - EKG Results EKG Interpreted Independently: Yes - Additional Planning Condition/Complexity: Guarded My Orders: My Active Orders 12/15/16 21:00 Pantoprazole [Protonix] 40 mg IVP BID 12/16/16 11:00 CBC - COMP BLD CT W/AUTO DIFF [HEME] Q6H 12/16/16 17:00 CBC - COMP BLD CT W/AUTO DIFF [HEME] Q6H Consult/Specialty: PT, Other (Ortho) Plan Discussed with:: Patient, Family Time Spent: 31-60 minutes Subjective - Subjective Patient Reports: Feeling Better (She feels much better after recieivng blood. She also states nausea is much improved. Pain is still there but the medications are controlling pain. She denies any fevers or shortness of breath.) Nursing Reports: No Complaints Objective Vital Signs: Vital Signs - 24 hr 12/15/16 12/16/16 12:32 01:57 Temperature 36.9 C 36.9 C Heart Rate [ 85 75 Brachial] Respiratory 18 16 Rate Blood Pressure 117/73 115/73 [Right Brachial artery] O2 Saturation 94 92 Oxygen O2 Source Room air I&O (Last 24 Hrs): Intake and Output Totals x24h 12/14/16 12/15/16 12/16/16 23:59 23:59 23:59 Intake Total 2681 1452 1146 Output Total 2350 850 800 Balance 331 602 346 General: Alert, Oriented x3, Cooperative HEENT: Atraumatic, PERRLA, EOMI, Other (dry mucus membranes) Neck: Supple, No JVD, No thyromegaly, +2 carotid pulse wo bruit, No LAD Lymphatic: no adenopathy Neuro: Alert, Non Focal, CN 2-12 Grossly Intact, Oriented Times 3 Cardiovascular: Regular rate, Normal S1, Normal S2, No murmurs Respiratory: Chest non-tender, No respiratory distress, Breath sounds nml Abdomen: Normal bowel sounds, No tenderness, No hepatospenomegaly, Other (Non tender, decreased bowel sounds) Extremities: No clubbing, No cyanosis, No edema, Normal pulses, Other (left leg looks good post surgical, no obvious hematoma) Skin: No rashes, No breakdown - Results Results: Laboratory Results WBC 4.1 x10^3/uL (4.8-10.8) L 12/16/16 05:28 RBC 2.80 10^6/uL (4.20-5.40) L 12/16/16 05:28 Hgb 8.1 g/dL (12.0-16.0) L 12/16/16 05:28 Hct 25.2 % (37.0-47.0) L 12/16/16 05:28 MCV 90.1 fL (81.0-99.0) 12/16/16 05:28 MCH 28.9 pg (27.0-31.0) 12/16/16 05:28 MCHC 32.0 g/dL (32.0-36.0) 12/16/16 05:28 RDW 18.4 % (12.0-15.0) H 12/16/16 05:28 Plt Count 170 10^3/uL (130-450) 12/16/16 05:28 MPV 9.4 fL (7.9-10.8) 12/16/16 05:28 Neut # 2.5 10^3/uL (1.5-6.6) 12/16/16 05:28 Lymph # 1.0 10^3/uL (1.5-3.5) L 12/16/16 05:28 Drew # 0.6 10^3/uL (0.0-1.0) 12/16/16 05:28 Eos # 0.1 10^3/uL (0.0-0.7) 12/16/16 05:28 Baso # 0.0 10^3/uL (0.0-0.1) 12/16/16 05:28 Absolute Nucleated RBC 0.01 x10^3/uL 12/16/16 05:28 Total Counted 100 12/15/16 17:20 Band Neuts % (Manual) 19 % (0-10) H 12/15/16 17:20 Metamyelocytes % 1 % (-0) H 12/15/16 17:20 Neutrophils # (Manual) 3.0 10^3/uL (1.5-6.6) 12/15/16 17:20 Lymphocytes # (Manual) 0.7 10^3/uL (1.5-3.5) L 12/15/16 17:20 Monocytes # (Manual) 0.6 10^3/uL (0.0-1.0) 12/15/16 17:20 Eosinophils # (Manual) 0.0 10^3/uL (0-0.7) 12/15/16 17:20 Nucleated RBCs 0.3 /100WBC 12/16/16 05:28 Differential Comment MANUAL DIFFERENTIAL 12/15/16 17:20 WBC Morphology 1+ VACUOLATION (NORMAL) 12/15/16 17:20 Platelet Estimate NORMAL (130-450,000) (NORMAL) 12/15/16 17:20 Platelet Morphology PLATELET CLUMPING (NORMAL) 12/15/16 17:20 RBC Morph Micro Appear 2+ ANISOCYTOSIS (NORMAL) 1+ OVALOCYTES (NORMAL) 1+ POLYCHROMASIA (NORMAL) 12/15/16 17:20 RBC Morph Micro Appear 2+ ANISOCYTOSIS (NORMAL) 1+ OVALOCYTES (NORMAL) 1+ POLYCHROMASIA (NORMAL) 12/15/16 17:20 RBC Morph Micro Appear 2+ ANISOCYTOSIS (NORMAL) 1+ OVALOCYTES (NORMAL) 1+ POLYCHROMASIA (NORMAL) 12/15/16 17:20 PT 13.9 secs (9.9-12.6) H 12/13/16 05:33 INR 1.2 (0.8-1.2) 12/13/16 05:33 Sodium 141 mmol/L (135-145) 12/16/16 05:28 Potassium 3.9 mmol/L (3.5-5.0) 12/16/16 05:28 Chloride 110 mmol/L (101-111) 12/16/16 05:28 Carbon Dioxide 24 mmol/L (21-32) 12/16/16 05:28 Anion Gap 7.0 (6-13) 12/16/16 05:28 BUN 10 mg/dL (6-20) 12/16/16 05:28 Creatinine 0.4 mg/dL (0.4-1.0) 12/16/16 05:28 Estimated GFR (MDRD) 181 (>89) 12/16/16 05:28 Glucose 100 mg/dL (70-100) 12/16/16 05:28 Calcium 7.2 mg/dL (8.5-10.3) L 12/16/16 05:28 Phosphorus 2.5 mg/dL (2.5-4.6) 12/14/16 05:39 Magnesium 1.8 mg/dL (1.7-2.8) 12/14/16 05:39 Total Bilirubin 0.7 mg/dL (0.2-1.0) 12/16/16 05:28 AST 42 IU/L (10-42) 12/16/16 05:28 ALT 32 IU/L (10-60) 12/16/16 05:28 Alkaline Phosphatase 82 IU/L (42-121) 12/16/16 05:28 Total Protein 5.0 g/dL (6.7-8.2) L 12/16/16 05:28 Albumin 2.6 g/dL (3.2-5.5) L 12/16/16 05:28 Globulin 2.4 g/dL (2.1-4.2) 12/16/16 05:28 Albumin/Globulin Ratio 1.1 (1.0-2.2) 12/16/16 05:28 Lipase 37 U/L (22-51) 12/12/16 14:23 Serum HCG, Qual NEGATIVE 12/12/16 14:23 Urine Color YELLOW 12/13/16 17:00 Urine Clarity CLEAR (CLEAR) 12/13/16 17:00 Urine pH 6.0 PH (5.0-7.5) 12/13/16 17:00 Ur Specific [place] >=1.030 (1.002-1.030) H 12/13/16 17:00 Urine Protein NEGATIVE mg/dL (NEGATIVE) 12/13/16 17:00 Urine Glucose (UA) NEGATIVE mg/dL (NEGATIVE) 12/13/16 17:00 Urine Ketones 40 mg/dL (NEGATIVE) H 12/13/16 17:00 Urine Occult Blood NEGATIVE (NEGATIVE) 12/13/16 17:00 Urine Nitrite NEGATIVE (NEGATIVE) 12/13/16 17:00 Urine Bilirubin NEGATIVE (NEGATIVE) 12/13/16 17:00 Urine Urobilinogen 0.2 (NORMAL) E.U./dL (NORMAL) 12/13/16 17:00 Ur Leukocyte Esterase NEGATIVE (NEGATIVE) 12/13/16 17:00 Ur Microscopic Review NOT INDICATED 12/13/16 17:00 Urine Culture Comments NOT INDICATED 12/13/16 17:00 Blood Type AB POSITIVE 12/15/16 08:15 Blood Type Recheck AB POSITIVE 12/15/16 05:59 Antibody Screen NEGATIVE 12/15/16 08:15 Crossmatch IS Only See Detail 12/15/16 08:15 - Procedures Procedures: Procedures INSERT GASTRIC TUBE NEC (10/22/13) PARENTERAL INFUSION OF CONCENTRATED NUT. SUBSTANCE (10/16/14) REPOSITION R UP FEMUR WITH INTRAMED FIX, OPEN APPROACH (10/17/16) VENOUS CATHETERIZATION NEC (10/16/14)
--- NOTE | 2016-12-16 08:53 | PROVIDER PROGRESS NOTE ---
Assessment/Plan - Problem List (1) Left femoral shaft fracture Qualifiers: Encounter type: initial encounter Fracture type: closed Fracture morphology: transverse Fracture alignment: displaced Qualified Code(s): S72.322A - Displaced transverse fracture of shaft of left femur, initial encounter for closed fracture Assessment/Plan: POD#1 s/p Cephalomedullary Nailing Left Femur Subtrochanteric Fracture Patient on dilaudid IV for pain control Working slowly with PT but having difficulty secondary to dizziness Pain is still difficult to control and having a lot of nausea and vomiting Will add ativan for nausea Possible cause is fosamax patient may need to stop medication as this is second fx in just few months Qualifiers: Encounter type: initial encounter Fracture type: closed Fracture morphology: transverse Fracture alignment: displaced Qualified Code(s): S72.322A - Displaced transverse fracture of shaft of left femur, initial encounter for closed fracture (2) Crohn disease Conclusion/Plan: Currently not having a flare Continue home dose of prednisone 7 mg daily Continue home dose of budesonide Continue home dose of azathioprine Continue Humira weekly next dose scheduled for today will take home med Patient has chronic diarrhea for which she receives Lomotil at home this will be continued while hospitalized. Stable (3) Osteoporosis Conclusion/Plan: Patient has osteoporosis secondary to chronic steroid use. Patient now has had 2 femoral shaft fractures recently on the right currently on the left Fosamax has been related to femoral shaft fractures and patient is currently on Fosamax for osteoporosis. Continue vitamin D and calcium Consider stopping Fosamax given the second fracture will need to discuss with her PCP as an outpatient. (4) Depression Conclusion/Plan: currently stable continue home dose of Zoloft (5) Prophylactic use of low molecular weight heparin for venous thromboembolism Conclusion/Plan: Lovenox today - Current Meds Current Meds: Current Medications Generic Name Dose Route Start Last Admin Trade Name Freq PRN Reason Stop Dose Admin Alendronate Sodium 70 mg 12/15/16 07:00 12/15/16 07:13 Fosamax PO Not Given Q7D MYRON Alprazolam 0.5 mg 12/12/16 17:58 12/16/16 08:14 Xanax PO 0.5 mg 5XD PRN Administration Anxiety Azathioprine 250 mg 12/13/16 09:00 12/16/16 08:12 Imuran PO 250 mg DAILY MYRON Administration Budesonide 9 mg 12/13/16 09:00 12/16/16 08:13 Entocort Ec PO 9 mg DAILY MYRON Administration Cholecalciferol 10,000 unit 12/13/16 09:00 12/16/16 08:13 Vitamin D3 PO 10,000 unit DAILY MYRON Administration Diphenhydramine HCl 25 mg 12/14/16 23:03 12/16/16 03:14 Benadryl Inj IVP 25 mg Q6H PRN Administration Agitation Famotidine 20 mg 12/12/16 21:00 12/16/16 08:14 Pepcid PO 20 mg BID MYRON Administration Folic Acid 1 mg 12/13/16 09:00 12/16/16 08:14 PO 1 mg DAILY MYRON Administration Gabapentin 1,800 mg 12/12/16 21:00 12/16/16 04:34 Neurontin PO Not Given QPM MYRON Gabapentin 900 mg 12/13/16 09:00 12/16/16 08:13 Neurontin PO 900 mg 0900,1400 MYRON Administration Hydromorphone HCl 1 mg 12/12/16 16:03 12/16/16 05:25 Dilaudid Inj IVP 1 mg Q2HR PRN Administration Pain 8 to 10 Sodium Chloride 1,000 mls @ 100 mls/hr 12/12/16 17:00 12/16/16 04:36 Normal Saline 0.9% IV Not Given .Q10H MYRON Acetaminophen 100 mls @ 400 mls/hr 12/13/16 10:00 12/16/16 04:38 Ofirmev IV 400 mls/hr Q6H MYRON Administration Promethazine HCl 25 mg/ Sodium 51 mls @ 100 mls/hr 12/13/16 15:10 12/15/16 00: 55 Chloride IV 100 mls/hr Q6H PRN Administration Nausea / Vomiting Lorazepam 1 mg 12/14/16 12:40 12/15/16 06:14 Ativan Inj IVP 1 mg Q6H PRN Administration Nausea / Vomiting Ondansetron HCl 4 mg 12/12/16 16:03 12/16/16 08:13 Zofran Odt TL 4 mg Q6HR PRN Administration Nausea / Vomiting Ondansetron HCl 4 mg 12/12/16 16:03 12/16/16 03:13 Zofran Inj IVP 4 mg Q6HR PRN Administration Nausea / Vomiting Oxycodone HCl 10 mg 12/12/16 16:03 12/16/16 08:14 Roxicodone PO 10 mg Q4HR PRN Administration Pain 8 to 10 Pantoprazole Sodium 40 mg 12/15/16 21:00 12/16/16 08:14 Protonix IVP 40 mg BID MYRON Administration (Adalimumab [Humira] 1 each 12/14/16 09:00 12/14/16 10:36 40 Mg) Subq SUBQ 1 each Injection Q7D MYRON Administration Polyethylene Glycol 17 gm 12/13/16 09:00 12/16/16 08:14 Miralax PO 17 gm DAILY MYRON Administration Prochlorperazine Edisylate 10 mg 12/12/16 16:03 12/16/16 05:26 Compazine Inj IVP 10 mg Q6HR PRN Administration Nausea / Vomiting Promethazine HCl 25 mg 12/12/16 16:03 12/14/16 04:54 Phenergan Inj IM 25 mg Q6HR PRN Administration Nausea / Vomiting Scopolamine HBr 1 patch 12/13/16 12:00 12/16/16 08:19 Transderm-Scop TOP 1 patch Q3D MYRON Administration Sertraline HCl 100 mg 12/13/16 09:00 12/16/16 08:14 Zoloft PO 100 mg DAILY MYRON Administration Sodium Chloride 10 ml 12/12/16 16:03 12/16/16 03:13 Normal Saline Flush 0.9% IVP 10 ml PRN PRN Administration NEEDED PER PROVIDER ORDERS Sodium Chloride 10 ml 12/12/16 22:00 12/16/16 05:27 Normal Saline Flush 0.9% IVP 10 ml Q8HR MYRON Administration - Lab Result Lab results reviewed: Yes Fish Bone Diagrams: 12/16/16 05:28 12/16/16 05:28 - EKG Results EKG Interpreted Independently: Yes - Diagnostic Imaging Results Diagnostic Imaging Results: positive: Final report reviewed - Additional Planning Condition/Complexity: Guarded My Orders: My Active Orders 12/15/16 21:00 Pantoprazole [Protonix] 40 mg IVP BID 12/16/16 11:00 CBC - COMP BLD CT W/AUTO DIFF [HEME] Q6H 12/16/16 17:00 CBC - COMP BLD CT W/AUTO DIFF [HEME] Q6H Consult/Specialty: PT, Other (ortho) Plan Discussed with:: Patient, Family Time Spent: 31-60 minutes Subjective - Subjective Patient Reports: Nausea (Nausea is bad. She has been vomiting all night .), Pain (Pain is difficult to get in control. Espeically when she has to work with PT.) Nursing Reports: Nausea Objective Vital Signs: Vital Signs - 24 hr 12/15/16 12/16/16 12:32 01:57 Temperature 36.9 C 36.9 C Heart Rate [ 85 75 Brachial] Respiratory 18 16 Rate Blood Pressure 117/73 115/73 [Right Brachial artery] O2 Saturation 94 92 Oxygen O2 Source Room air I&O (Last 24 Hrs): Intake and Output Totals x24h 12/14/16 12/15/16 12/16/16 23:59 23:59 23:59 Intake Total 2681 1452 1146 Output Total 2350 850 800 Balance 331 602 346 General: Alert, Oriented x3, Cooperative HEENT: Atraumatic, PERRLA, EOMI, Mucous membr. moist/pink Neck: Supple, No JVD, No thyromegaly, +2 carotid pulse wo bruit, No LAD Lymphatic: no adenopathy Neuro: Alert, Non Focal, CN 2-12 Grossly Intact, Oriented Times 3 Cardiovascular: Other (Tachycardic) Respiratory: Chest non-tender, No respiratory distress, Breath sounds nml Abdomen: Normal bowel sounds, Soft, No tenderness, No hepatospenomegaly Extremities: No clubbing, No cyanosis, No edema, Normal pulses, Other (Left leg surgical site appears clean, no hematoma) Skin: No rashes, No breakdown - Results Results: Laboratory Results WBC 4.1 x10^3/uL (4.8-10.8) L 12/16/16 05:28 RBC 2.80 10^6/uL (4.20-5.40) L 12/16/16 05:28 Hgb 8.1 g/dL (12.0-16.0) L 12/16/16 05:28 Hct 25.2 % (37.0-47.0) L 12/16/16 05:28 MCV 90.1 fL (81.0-99.0) 12/16/16 05:28 MCH 28.9 pg (27.0-31.0) 12/16/16 05:28 MCHC 32.0 g/dL (32.0-36.0) 12/16/16 05:28 RDW 18.4 % (12.0-15.0) H 12/16/16 05:28 Plt Count 170 10^3/uL (130-450) 12/16/16 05:28 MPV 9.4 fL (7.9-10.8) 12/16/16 05:28 Neut # 2.5 10^3/uL (1.5-6.6) 12/16/16 05:28 Lymph # 1.0 10^3/uL (1.5-3.5) L 12/16/16 05:28 [place] # 0.6 10^3/uL (0.0-1.0) 12/16/16 05:28 Eos # 0.1 10^3/uL (0.0-0.7) 12/16/16 05:28 Baso # 0.0 10^3/uL (0.0-0.1) 12/16/16 05:28 Absolute Nucleated RBC 0.01 x10^3/uL 12/16/16 05:28 Total Counted 100 12/15/16 17:20 Band Neuts % (Manual) 19 % (0-10) H 12/15/16 17:20 Metamyelocytes % 1 % (-0) H 12/15/16 17:20 Neutrophils # (Manual) 3.0 10^3/uL (1.5-6.6) 12/15/16 17:20 Lymphocytes # (Manual) 0.7 10^3/uL (1.5-3.5) L 12/15/16 17:20 Monocytes # (Manual) 0.6 10^3/uL (0.0-1.0) 12/15/16 17:20 Eosinophils # (Manual) 0.0 10^3/uL (0-0.7) 12/15/16 17:20 Nucleated RBCs 0.3 /100WBC 12/16/16 05:28 Differential Comment MANUAL DIFFERENTIAL 12/15/16 17:20 WBC Morphology 1+ VACUOLATION (NORMAL) 12/15/16 17:20 Platelet Estimate NORMAL (130-450,000) (NORMAL) 12/15/16 17:20 Platelet Morphology PLATELET CLUMPING (NORMAL) 12/15/16 17:20 RBC Morph Micro Appear 2+ ANISOCYTOSIS (NORMAL) 1+ OVALOCYTES (NORMAL) 1+ POLYCHROMASIA (NORMAL) 12/15/16 17:20 RBC Morph Micro Appear 2+ ANISOCYTOSIS (NORMAL) 1+ OVALOCYTES (NORMAL) 1+ POLYCHROMASIA (NORMAL) 12/15/16 17:20 RBC Morph Micro Appear 2+ ANISOCYTOSIS (NORMAL) 1+ OVALOCYTES (NORMAL) 1+ POLYCHROMASIA (NORMAL) 12/15/16 17:20 PT 13.9 secs (9.9-12.6) H 12/13/16 05:33 INR 1.2 (0.8-1.2) 12/13/16 05:33 Sodium 141 mmol/L (135-145) 12/16/16 05:28 Potassium 3.9 mmol/L (3.5-5.0) 12/16/16 05:28 Chloride 110 mmol/L (101-111) 12/16/16 05:28 Carbon Dioxide 24 mmol/L (21-32) 12/16/16 05:28 Anion Gap 7.0 (6-13) 12/16/16 05:28 BUN 10 mg/dL (6-20) 12/16/16 05:28 Creatinine 0.4 mg/dL (0.4-1.0) 12/16/16 05:28 Estimated GFR (MDRD) 181 (>89) 12/16/16 05:28 Glucose 100 mg/dL (70-100) 12/16/16 05:28 Calcium 7.2 mg/dL (8.5-10.3) L 12/16/16 05:28 Phosphorus 2.5 mg/dL (2.5-4.6) 12/14/16 05:39 Magnesium 1.8 mg/dL (1.7-2.8) 12/14/16 05:39 Total Bilirubin 0.7 mg/dL (0.2-1.0) 12/16/16 05:28 AST 42 IU/L (10-42) 12/16/16 05:28 ALT 32 IU/L (10-60) 12/16/16 05:28 Alkaline Phosphatase 82 IU/L (42-121) 12/16/16 05:28 Total Protein 5.0 g/dL (6.7-8.2) L 12/16/16 05:28 Albumin 2.6 g/dL (3.2-5.5) L 12/16/16 05:28 Globulin 2.4 g/dL (2.1-4.2) 12/16/16 05:28 Albumin/Globulin Ratio 1.1 (1.0-2.2) 12/16/16 05:28 Lipase 37 U/L (22-51) 12/12/16 14:23 Serum HCG, Qual NEGATIVE 12/12/16 14:23 Urine Color YELLOW 12/13/16 17:00 Urine Clarity CLEAR (CLEAR) 12/13/16 17:00 Urine pH 6.0 PH (5.0-7.5) 12/13/16 17:00 Ur Specific [place] >=1.030 (1.002-1.030) H 12/13/16 17:00 Urine Protein NEGATIVE mg/dL (NEGATIVE) 12/13/16 17:00 Urine Glucose (UA) NEGATIVE mg/dL (NEGATIVE) 12/13/16 17:00 Urine Ketones 40 mg/dL (NEGATIVE) H 12/13/16 17:00 Urine Occult Blood NEGATIVE (NEGATIVE) 12/13/16 17:00 Urine Nitrite NEGATIVE (NEGATIVE) 12/13/16 17:00 Urine Bilirubin NEGATIVE (NEGATIVE) 12/13/16 17:00 Urine Urobilinogen 0.2 (NORMAL) E.U./dL (NORMAL) 12/13/16 17:00 Ur Leukocyte Esterase NEGATIVE (NEGATIVE) 12/13/16 17:00 Ur Microscopic Review NOT INDICATED 12/13/16 17:00 Urine Culture Comments NOT INDICATED 12/13/16 17:00 Blood Type AB POSITIVE 12/15/16 08:15 Blood Type Recheck AB POSITIVE 12/15/16 05:59 Antibody Screen NEGATIVE 12/15/16 08:15 Crossmatch IS Only See Detail 12/15/16 08:15 - Procedures Procedures: Procedures INSERT GASTRIC TUBE NEC (10/22/13) PARENTERAL INFUSION OF CONCENTRATED NUT. SUBSTANCE (10/16/14) REPOSITION R UP FEMUR WITH INTRAMED FIX, OPEN APPROACH (10/17/16) VENOUS CATHETERIZATION NEC (10/16/14)
--- NOTE | 2016-12-16 10:17 | PROVIDER PROGRESS NOTE ---
Subjective - General Admit Date: 12/12/16 Procedure Date: 12/13/16 Post Op Days: 3 Procedure Performed: IM rodding of left femur - Review of Systems Wound/Incisions: positive: Dressing dry and intact General: positive: Weakness Musculoskeletal: positive: Joint swelling Objective - Patient Data Reviewed Vital Signs: Yes Vital Signs: Vital Signs x48h Temp Pulse Resp BP Pulse Ox 12/16/16 09:00 36.8 C 79 18 123/75 93 Intake & Output: Intake and Output Totals x24h 12/14/16 12/15/16 12/16/16 23:59 23:59 23:59 Intake Total 2681 1452 1146 Output Total 2350 850 1250 Balance 331 602 -104 - Lab Results Lab Results: 12/16/16 05:28 12/16/16 05:28 Other Lab Results: Lab Results x24hrs 12/16/16 12/16/16 12/15/16 Range/Units 05:28 05:28 23:08 WBC 4.1 L 3.8 L (4.8-10.8) x10^3/uL RBC 2.80 L 2.78 L (4.20-5.40) 10^6/uL Hgb 8.1 L 8.2 L (12.0-16.0) g/dL Hct 25.2 L 24.5 L (37.0-47.0) % MCV 90.1 87.9 (81.0-99.0) fL MCH 28.9 29.3 (27.0-31.0) pg MCHC 32.0 33.3 (32.0-36.0) g/dL RDW 18.4 H 18.3 H (12.0-15.0) % Plt Count 170 170 (130-450) 10^3/uL MPV 9.4 9.6 (7.9-10.8) fL Neut # 2.5 2.5 Lymph # 1.0 L 0.7 L [place] # 0.6 0.6 Eos # 0.1 0.0 Baso # 0.0 0.0 Absolute Nucleated RBC 0.01 0.01 Total Counted Band Neuts % (Manual) (0 - 10) % Metamyelocytes % ( - 0) % Neutrophils # (Manual) (1.5-6.6) 10^3/uL Lymphocytes # (Manual) (1.5-3.5) 10^3/uL Monocytes # (Manual) (0.0-1.0) 10^3/uL Eosinophils # (Manual) (0-0.7) 10^3/uL Nucleated RBCs 0.3 0.2 % Differential Comment WBC Morphology (NORMAL) Platelet Estimate (NORMAL) Platelet Morphology (NORMAL) RBC Morph Micro Appear (NORMAL) Sodium 141 (135-145) mmol/L Potassium 3.9 (3.5-5.0) mmol/L Chloride 110 (101-111) mmol/L Carbon Dioxide 24 (21-32) mmol/L Anion Gap 7.0 (6-13) BUN 10 (6-20) mg/dL Creatinine 0.4 (0.4-1.0) mg/dL Estimated GFR (MDRD) 181 (>89) Glucose 100 (70-100) mg/dL Calcium 7.2 L (8.5-10.3) mg/dL Total Bilirubin 0.7 (0.2-1.0) mg/dL AST 42 (10-42) IU/L ALT 32 (10-60) IU/L Alkaline Phosphatase 82 (42-121) IU/L Total Protein 5.0 L (6.7-8.2) g/dL Albumin 2.6 L (3.2-5.5) g/dL Globulin 2.4 (2.1-4.2) g/dL Albumin/Globulin Ratio 1.1 (1.0-2.2) Blood Type Antibody Screen Crossmatch IS Only 12/15/16 12/15/16 Range/Units 17:20 08:15 WBC 4.4 L (4.8-10.8) x10^3/uL RBC 3.04 L (4.20-5.40) 10^6/uL Hgb 9.1 L (12.0-16.0) g/dL Hct 27.3 L (37.0-47.0) % MCV 89.6 (81.0-99.0) fL MCH 29.8 (27.0-31.0) pg MCHC 33.3 (32.0-36.0) g/dL RDW 18.6 H (12.0-15.0) % Plt Count (130-450) 10^3/uL MPV 9.9 (7.9-10.8) fL Neut # Not Reportable Lymph # Not Reportable [place] # Not Reportable Eos # Not Reportable Baso # Not Reportable Absolute Nucleated RBC Not Reportable Total Counted 100 Band Neuts % (Manual) 19 H (0 - 10) % Metamyelocytes % 1 H ( - 0) % Neutrophils # (Manual) 3.0 (1.5-6.6) 10^3/uL Lymphocytes # (Manual) 0.7 L (1.5-3.5) 10^3/uL Monocytes # (Manual) 0.6 (0.0-1.0) 10^3/uL Eosinophils # (Manual) 0.0 (0-0.7) 10^3/uL Nucleated RBCs 2 % Differential Comment MANUAL DIFFERENTIAL WBC Morphology 1+ VACUOLATION (NORMAL) Platelet Estimate NORMAL (130-450,000) (NORMAL) Platelet Morphology PLATELET CLUMPING (NORMAL) RBC Morph Micro Appear 1+ POLYCHROMASIA (NORMAL) Sodium (135-145) mmol/L Potassium (3.5-5.0) mmol/L Chloride (101-111) mmol/L Carbon Dioxide (21-32) mmol/L Anion Gap (6-13) BUN (6-20) mg/dL Creatinine (0.4-1.0) mg/dL Estimated GFR (MDRD) (>89) Glucose (70-100) mg/dL Calcium (8.5-10.3) mg/dL Total Bilirubin (0.2-1.0) mg/dL AST (10-42) IU/L ALT (10-60) IU/L Alkaline Phosphatase (42-121) IU/L Total Protein (6.7-8.2) g/dL Albumin (3.2-5.5) g/dL Globulin (2.1-4.2) g/dL Albumin/Globulin Ratio (1.0-2.2) Blood Type AB POSITIVE Antibody Screen NEGATIVE Crossmatch IS Only See Detail - Current Medications Current Medications: Current Medications Generic Name Dose Route Start Last Admin Trade Name Freq PRN Reason Stop Dose Admin Alendronate Sodium 70 mg 12/15/16 07:00 12/15/16 07:13 Fosamax PO Not Given Q7D MYRON Alprazolam 0.5 mg 12/12/16 17:58 12/16/16 08:14 Xanax PO 0.5 mg 5XD PRN Administration Anxiety Azathioprine 250 mg 12/13/16 09:00 12/16/16 08:12 Imuran PO 250 mg DAILY MYRON Administration Budesonide 9 mg 12/13/16 09:00 12/16/16 08:13 Entocort Ec PO 9 mg DAILY MYRON Administration Cholecalciferol 10,000 unit 12/13/16 09:00 12/16/16 08:13 Vitamin D3 PO 10,000 unit DAILY MYRON Administration Diphenhydramine HCl 25 mg 12/14/16 23:03 12/16/16 03:14 Benadryl Inj IVP 25 mg Q6H PRN Administration Agitation Famotidine 20 mg 12/12/16 21:00 12/16/16 08:14 Pepcid PO 20 mg BID MYRON Administration Folic Acid 1 mg 12/13/16 09:00 12/16/16 08:14 PO 1 mg DAILY MYRON Administration Gabapentin 1,800 mg 12/12/16 21:00 12/16/16 04:34 Neurontin PO Not Given QPM MYRON Gabapentin 900 mg 12/13/16 09:00 12/16/16 08:13 Neurontin PO 900 mg 0900,1400 MYRON Administration Sodium Chloride 1,000 mls @ 100 mls/hr 12/12/16 17:00 12/16/16 04:36 Normal Saline 0.9% IV Not Given .Q10H MYRON Promethazine HCl 25 mg/ Sodium 51 mls @ 100 mls/hr 12/13/16 15:10 12/15/16 00: 55 Chloride IV 100 mls/hr Q6H PRN Administration Nausea / Vomiting Lorazepam 1 mg 12/14/16 12:40 12/15/16 06:14 Ativan Inj IVP 1 mg Q6H PRN Administration Nausea / Vomiting Ondansetron HCl 4 mg 12/12/16 16:03 12/16/16 08:13 Zofran Odt TL 4 mg Q6HR PRN Administration Nausea / Vomiting Pantoprazole Sodium 40 mg 12/15/16 21:00 12/16/16 08:14 Protonix IVP 40 mg BID MYRON Administration (Adalimumab [Humira] 1 each 12/14/16 09:00 12/14/16 10:36 40 Mg) Subq SUBQ 1 each Injection Q7D MYRON Administration Polyethylene Glycol 17 gm 12/13/16 09:00 12/16/16 08:14 Miralax PO 17 gm DAILY MYRON Administration Prochlorperazine Edisylate 10 mg 12/12/16 16:03 12/16/16 05:26 Compazine Inj IVP 10 mg Q6HR PRN Administration Nausea / Vomiting Promethazine HCl 25 mg 12/12/16 16:03 12/14/16 04:54 Phenergan Inj IM 25 mg Q6HR PRN Administration Nausea / Vomiting Scopolamine HBr 1 patch 12/13/16 12:00 12/16/16 08:19 Transderm-Scop TOP 1 patch Q3D MYRON Administration Sertraline HCl 100 mg 12/13/16 09:00 12/16/16 08:14 Zoloft PO 100 mg DAILY MYRON Administration Sodium Chloride 10 ml 12/12/16 16:03 12/16/16 03:13 Normal Saline Flush 0.9% IVP 10 ml PRN PRN Administration NEEDED PER PROVIDER ORDERS Sodium Chloride 10 ml 12/12/16 22:00 12/16/16 05:27 Normal Saline Flush 0.9% IVP 10 ml Q8HR MYRON Administration - Physical Exam Wound/Incisions: positive: Dressing dry and intact Extremities: positive: Joint swelling Neurologic/Psychiatric: positive: Oriented x3, Motor nml, Sensation nml, Mood/ affect nml Impression/Plan - Problem List Problem List: POD #3 Pt is advancing slowly, but feeling better after transfusion. Plan to advance to PO meds. Try to use IV only for anti-nausea meds which still remain an issue.
[2016-12-16] MEDS: HYDROmorphone 2 MG TABLET PO PRN ×2 (10:41→16:07)
[2016-12-16] MEDS: PROMETHAZINE 25 MG/1 ML VIAL IM PRN (10:43)
[2016-12-16 12:46] LABS: BASOPHILS % (AUTO) 0.5 %; EOSINOPHILS # (AUTO) 0.2 10^3/uL (0.0-0.7); EOSINOPHILS % (AUTO) 3.3 %; HCT - HEMATOCRIT 27.2 % (37.0-47.0); LYMPHOCYTES # (AUTO) 1.2 10^3/uL (1.5-3.5); LYMPHOCYTES % (AUTO) 21.7 %; MEAN CORPUSCULAR HEMOGLOBIN 29.5 pg (27.0-31.0); MEAN CORPUSCULAR HGB CONC 33.2 g/dL (32.0-36.0); MEAN PLATELET VOLUME 9.7 fL (7.9-10.8); MONOCYTES # (AUTO) 0.7 10^3/uL (0.0-1.0); MONOCYTES % (AUTO) 11.4 %; NEUTROPHILS # (AUTO) 3.6 10^3/uL (1.5-6.6); NEUTROPHILS % (AUTO) 63.1 %; NUCLEATED RED BLOOD CELLS AUTO 0.6 /100WBC; RED BLOOD COUNT 3.06 10^6/uL (4.20-5.40); RED CELL DISTRIBUTION WIDTH 18.1 % (12.0-15.0); UNCORRECTED WHITE BLOOD COUNT 5.7 x10^3/uL; WHITE BLOOD COUNT 5.7 x10^3/uL (4.8-10.8)
[2016-12-16] MEDS: ACETAMINOPHEN 1,000 MG/100 ML 100 ML IV PRN (13:45)
[2016-12-16 18:46] LABS: BASOPHILS % (AUTO) 0.4 %; EOSINOPHILS # (AUTO) 0.2 10^3/uL (0.0-0.7); EOSINOPHILS % (AUTO) 2.7 %; HCT - HEMATOCRIT 25.7 % (37.0-47.0); HGB - HEMOGLOBIN 8.3 g/dL (12.0-16.0); LYMPHOCYTES # (AUTO) 1.2 10^3/uL (1.5-3.5); LYMPHOCYTES % (AUTO) 21.8 %; MEAN CORPUSCULAR HGB CONC 32.4 g/dL (32.0-36.0); MEAN CORPUSCULAR VOLUME 89.6 fL (81.0-99.0); MEAN PLATELET VOLUME 9.6 fL (7.9-10.8); MONOCYTES # (AUTO) 0.7 10^3/uL (0.0-1.0); MONOCYTES % (AUTO) 12.4 %; NEUTROPHILS # (AUTO) 3.5 10^3/uL (1.5-6.6); NEUTROPHILS % (AUTO) 62.7 %; NUCLEATED RED BLOOD CELLS AUTO 0.2 /100WBC; RED BLOOD COUNT 2.87 10^6/uL (4.20-5.40); UNCORRECTED WHITE BLOOD COUNT 5.6 x10^3/uL; WHITE BLOOD COUNT 5.6 x10^3/uL (4.8-10.8)
[2016-12-16] MEDS: PROMETHAZINE INJ 25 MG in SODIUM CHLORIDE 0.9% 50 ML IV PRN (19:09)
[2016-12-16] MEDS: LORazepam 2 MG/ML SYRINGE IVP PRN (22:20)
[2016-12-17] MEDS: SODIUM CHLORIDE 0.9% 1,000 ML IV SCH ×3 (00:53→20:54)
[2016-12-17] MEDS: HYDROmorphone 2 MG TABLET PO PRN ×3 (00:54→20:45)
[2016-12-17] MEDS: diphenhydrAMINE INJ 50 MG/ML VIAL IVP PRN ×2 (00:54→06:49)
[2016-12-17] MEDS: PROMETHAZINE INJ 25 MG in SODIUM CHLORIDE 0.9% 50 ML IV PRN ×2 (02:10→15:59)
[2016-12-17] MEDS: SODIUM CHLORIDE FLUSH 0.9% 10 ML SYRINGE IVP PRN (02:10)
[2016-12-17] MEDS: HYDROmorphone 1 MG/ML SYRINGE IVP PRN ×3 (02:10→17:28)
[2016-12-17] MEDS: DIPHENOX/ATROPINE 2.5/0.025 MG TABLET PO PRN ×4 (03:43→18:53)
[2016-12-17] MEDS: oxyCODONE 5 MG TABLET PO PRN ×3 (03:52→16:00)
[2016-12-17] MEDS: LORazepam 2 MG/ML SYRINGE IVP PRN ×2 (03:52→20:51)
[2016-12-17] MEDS: SODIUM CHLORIDE FLUSH 0.9% 10 ML SYRINGE IVP SCH ×3 (06:50→20:45)
[2016-12-17 06:53] LABS: BASOPHILS % (AUTO) 0.2 %; EOSINOPHILS # (AUTO) 0.1 10^3/uL (0.0-0.7); EOSINOPHILS % (AUTO) 2.4 %; HCT - HEMATOCRIT 24.3 % (37.0-47.0); LYMPHOCYTES # (AUTO) 1.2 10^3/uL (1.5-3.5); LYMPHOCYTES % (AUTO) 23.9 %; MEAN CORPUSCULAR HEMOGLOBIN 29.7 pg (27.0-31.0); MEAN CORPUSCULAR HGB CONC 33.1 g/dL (32.0-36.0); MEAN CORPUSCULAR VOLUME 89.9 fL (81.0-99.0); MEAN PLATELET VOLUME 9.1 fL (7.9-10.8); MONOCYTES # (AUTO) 0.5 10^3/uL (0.0-1.0); MONOCYTES % (AUTO) 10.2 %; NEUTROPHILS # (AUTO) 3.3 10^3/uL (1.5-6.6); NEUTROPHILS % (AUTO) 63.3 %; NUCLEATED RED BLOOD CELLS AUTO 0.1 /100WBC; RED CELL DISTRIBUTION WIDTH 17.7 % (12.0-15.0); UNCORRECTED WHITE BLOOD COUNT 5.2 x10^3/uL; WHITE BLOOD COUNT 5.2 x10^3/uL (4.8-10.8)
[2016-12-17] MEDS: PROCHLORPERAZINE 10 MG/2 ML VIAL IVP PRN ×3 (07:42→20:46)
[2016-12-17] MEDS: BUDESONIDE 3 MG CAPSULE PO SCH (07:44)
[2016-12-17] MEDS: SERTRALINE 50 MG TABLET PO SCH (07:44)
[2016-12-17] MEDS: CHOLECALCIFEROL 5,000 UNIT CAPSULE PO SCH (07:44)
[2016-12-17] MEDS: PANTOPRAZOLE 40 MG VIAL IVP SCH ×2 (07:44→20:44)
[2016-12-17] MEDS: azaTHIOprine 50 MG TABLET PO SCH (07:44)
[2016-12-17] MEDS: ALPRAZolam 0.25 MG TABLET PO PRN ×2 (07:45→10:34)
[2016-12-17] MEDS: FOLIC ACID 1 MG TABLET PO SCH (07:45)
[2016-12-17] MEDS: GABAPENTIN 300 MG CAPSULE PO SCH ×3 (07:45→20:44)
[2016-12-17] MEDS: FAMOTIDINE 20 MG TABLET PO SCH ×2 (07:45→20:45)
[2016-12-17] MEDS: POLYETHYLENE GLYCOL 3350 17 GM PACKET PO SCH (07:45)
[2016-12-17] MEDS: ACETAMINOPHEN 1,000 MG/100 ML 100 ML IV PRN ×2 (07:46→13:08)
[2016-12-17] MEDS: ONDANSETRON 4 MG/2 ML VIAL IVP PRN (17:15)
--- NOTE | 2016-12-17 18:12 | PROVIDER PROGRESS NOTE ---
Assessment/Plan - Problem List (1) Left femoral shaft fracture Qualifiers: Encounter type: initial encounter Fracture type: closed Fracture morphology: transverse Fracture alignment: displaced Qualified Code(s): S72.322A - Displaced transverse fracture of shaft of left femur, initial encounter for closed fracture Assessment/Plan: POD#3 s/p Cephalomedullary Nailing Left Femur Subtrochanteric Fracture Patient on dilaudid IV for pain control with IV tylenol, PO oxy and PO dilaudid Worked with PT today still has only been able to work on transfers has not walked with PT yet Pain is controlled and she is using less and less IV meds Qualifiers: Encounter type: initial encounter Fracture type: closed Fracture morphology: transverse Fracture alignment: displaced Qualified Code(s): S72.322A - Displaced transverse fracture of shaft of left femur, initial encounter for closed fracture (2) Acute Blood Loss Anemia Conclusion/Plan: hb fell to 6.6 transfused 2 units and Hb back up to 9.1 Tachycardia and dizziness improved Patient feels better BM today with negative stools, no blood or melena Continue IV protonix for now will discontinue at discharge Monitor hb Likely blood loss from surgery and fracture although no major hematoma or bruising of the leg (3) Crohn disease Conclusion/Plan: Currently not having a flare Hold home dose of prednisone 7 mg daily for possible GI bleed will restart at discharge if no further drop in hb Continue home dose of budesonide Continue home dose of azathioprine Continue Humira weekly next dose scheduled for today will take home med Patient has chronic diarrhea for which she receives Lomotil at home this will be continued while hospitalized. Stable (4) Osteoporosis Conclusion/Plan: Patient has osteoporosis secondary to chronic steroid use. Patient now has had 2 femoral shaft fractures recently on the right currently on the left Fosamax has been related to femoral shaft fractures and patient is currently on Fosamax for osteoporosis. Continue vitamin D and calcium Consider stopping Fosamax given the second fracture will need to discuss with her PCP as an outpatient. (5) Depression Conclusion/Plan: currently stable continue home dose of Zoloft (6) Prophylactic use of low molecular weight heparin for venous thromboembolism Conclusion/Plan: On lovenox - Current Meds Current Meds: Current Medications Generic Name Dose Route Start Last Admin Trade Name Freq PRN Reason Stop Dose Admin Alendronate Sodium 70 mg 12/15/16 07:00 12/15/16 07:13 Fosamax PO Not Given Q7D MYRON Alprazolam 0.5 mg 12/12/16 17:58 12/17/16 10:34 Xanax PO 0.5 mg 5XD PRN Administration Anxiety Azathioprine 250 mg 12/13/16 09:00 12/17/16 07:44 Imuran PO 250 mg DAILY MYRON Administration Budesonide 9 mg 12/13/16 09:00 12/17/16 07:44 Entocort Ec PO 9 mg DAILY MYRON Administration Cholecalciferol 10,000 unit 12/13/16 09:00 12/17/16 07:44 Vitamin D3 PO 10,000 unit DAILY MYRON Administration Diphenhydramine HCl 25 mg 12/14/16 23:03 12/17/16 06:49 Benadryl Inj IVP 25 mg Q6H PRN Administration Agitation Diphenoxylate HCl/Atropine 2 tab 12/12/16 16:02 12/17/16 13:09 Lomotil PO 2 tab QID PRN Administration Diarrhea Famotidine 20 mg 12/12/16 21:00 12/17/16 07:45 Pepcid PO 20 mg BID MYRON Administration Folic Acid 1 mg 12/13/16 09:00 12/17/16 07:45 PO 1 mg DAILY MYRON Administration Gabapentin 1,800 mg 12/12/16 21:00 12/16/16 20:40 Neurontin PO 1,800 mg QPM MYRON Administration Gabapentin 900 mg 12/13/16 09:00 12/17/16 13:09 Neurontin PO 900 mg 0900,1400 MYRON Administration Hydromorphone HCl 2 mg 12/16/16 10:14 12/17/16 06:49 Dilaudid PO 2 mg Q4HR PRN Administration Severe Pain Hydromorphone HCl 1 mg 12/16/16 13:05 12/17/16 17:28 Dilaudid Inj IVP 1 mg Q6H PRN Administration Breakthrough Pain Sodium Chloride 1,000 mls @ 100 mls/hr 12/12/16 17:00 12/17/16 10:34 Normal Saline 0.9% IV 100 mls/hr .Q10H MYRON Administration Promethazine HCl 25 mg/ Sodium 51 mls @ 100 mls/hr 12/13/16 15:10 12/17/16 15: 59 Chloride IV 100 mls/hr Q6H PRN Administration Nausea / Vomiting Acetaminophen 100 mls @ 400 mls/hr 12/16/16 13:07 12/17/16 13:08 Ofirmev IV 400 mls/hr Q6HR PRN Administration PAIN Lorazepam 1 mg 12/14/16 12:40 12/17/16 03:52 Ativan Inj IVP 1 mg Q6H PRN Administration Nausea / Vomiting Ondansetron HCl 4 mg 12/12/16 16:03 12/16/16 16:07 Zofran Odt TL 4 mg Q6HR PRN Administration Nausea / Vomiting Ondansetron HCl 4 mg 12/16/16 14:36 12/17/16 17:15 Zofran Inj IVP 4 mg Q6HR PRN Administration Nausea / Vomiting Oxycodone HCl 10 mg 12/16/16 13:05 12/17/16 16:00 Roxicodone PO 10 mg Q4HR PRN Administration PAIN Pantoprazole Sodium 40 mg 12/15/16 21:00 12/17/16 07:44 Protonix IVP 40 mg BID MYRON Administration (Adalimumab [Humira] 1 each 12/14/16 09:00 12/14/16 10:36 40 Mg) Subq SUBQ 1 each Injection Q7D MYRON Administration Polyethylene Glycol 17 gm 12/13/16 09:00 12/17/16 07:45 Miralax PO Not Given DAILY MYRON Prochlorperazine Edisylate 10 mg 12/12/16 16:03 12/17/16 13:09 Compazine Inj IVP 10 mg Q6HR PRN Administration Nausea / Vomiting Promethazine HCl 25 mg 12/12/16 16:03 12/16/16 10:43 Phenergan Inj IM 25 mg Q6HR PRN Administration Nausea / Vomiting Scopolamine HBr 1 patch 12/13/16 12:00 12/16/16 08:19 Transderm-Scop TOP 1 patch Q3D MYRON Administration Sertraline HCl 100 mg 12/13/16 09:00 12/17/16 07:44 Zoloft PO 100 mg DAILY MYRON Administration Sodium Chloride 10 ml 12/12/16 16:03 12/17/16 02:10 Normal Saline Flush 0.9% IVP 10 ml PRN PRN Administration NEEDED PER PROVIDER ORDERS Sodium Chloride 10 ml 12/12/16 22:00 12/17/16 07:46 Normal Saline Flush 0.9% IVP Not Given Q8HR MYRON - Lab Result Lab results reviewed: Yes Fish Bone Diagrams: 12/17/16 06:40 12/16/16 05:28 - EKG Results EKG Interpreted Independently: Yes - Diagnostic Imaging Results Diagnostic Imaging Results: positive: Final report reviewed - Additional Planning Condition/Complexity: Guarded My Orders: My Active Orders 12/18/16 05:00 CBC - COMP BLD CT W/AUTO DIFF [HEME] DAILYLAB CMP, RFLX TO IONIZED CA IF [CHEM] DAILYLAB Consult/Specialty: PT, Other (Ortho) Plan Discussed with:: Patient, Spouse Time Spent: 31-60 minutes Subjective - Subjective Patient Reports: Feeling Better (Feeling better. Pain better controlled. Still a lot of pain after PT. Very tired today with PT. Could only do transfers. Nausea improved but still requring antiemtics.) Nursing Reports: Nausea, Pain Objective Vital Signs: Vital Signs - 24 hr 12/17/16 12/17/16 12/17/16 01:17 10:00 16:19 Temperature 37.2 C 36.8 C 36.9 C Heart Rate [ 88 72 77 Brachial] Respiratory 18 18 20 Rate Blood Pressure 126/77 121/77 123/76 [Right Brachial artery] O2 Saturation 94 96 Oxygen O2 Source Room air I&O (Last 24 Hrs): Intake and Output Totals x24h 12/15/16 12/16/16 12/17/16 23:59 23:59 23:59 Intake Total 1452 1946 2846 Output Total 850 3000 2350 Balance 602 -1054 496 General: Alert, Oriented x3, Cooperative, No acute distress HEENT: Atraumatic, PERRLA, EOMI, Mucous membr. moist/pink Neck: Supple, No JVD, No thyromegaly, +2 carotid pulse wo bruit, No LAD Lymphatic: no adenopathy Neuro: Alert, Non Focal, CN 2-12 Grossly Intact, Oriented Times 3 Cardiovascular: Regular rate, Normal S1, Normal S2, No murmurs Respiratory: Chest non-tender, No respiratory distress, Breath sounds nml Abdomen: Normal bowel sounds, Soft, No tenderness, No hepatospenomegaly Extremities: No clubbing, No cyanosis, No edema, Normal pulses, Other (Surgical site appears clean and non infected, no large hemtoma) Skin: No rashes, No breakdown - Results Results: Laboratory Results WBC 5.2 x10^3/uL (4.8-10.8) 12/17/16 06:40 RBC 2.70 10^6/uL (4.20-5.40) L 12/17/16 06:40 Hgb 8.0 g/dL (12.0-16.0) L 12/17/16 06:40 Hct 24.3 % (37.0-47.0) L 12/17/16 06:40 MCV 89.9 fL (81.0-99.0) 12/17/16 06:40 MCH 29.7 pg (27.0-31.0) 12/17/16 06:40 MCHC 33.1 g/dL (32.0-36.0) 12/17/16 06:40 RDW 17.7 % (12.0-15.0) H 12/17/16 06:40 Plt Count 166 10^3/uL (130-450) 12/17/16 06:40 MPV 9.1 fL (7.9-10.8) 12/17/16 06:40 Neut # 3.3 10^3/uL (1.5-6.6) 12/17/16 06:40 Lymph # 1.2 10^3/uL (1.5-3.5) L 12/17/16 06:40 [place] # 0.5 10^3/uL (0.0-1.0) 12/17/16 06:40 Eos # 0.1 10^3/uL (0.0-0.7) 12/17/16 06:40 Baso # 0.0 10^3/uL (0.0-0.1) 12/17/16 06:40 Absolute Nucleated RBC 0.01 x10^3/uL 12/17/16 06:40 Total Counted 100 12/15/16 17:20 Band Neuts % (Manual) 19 % (0-10) H 12/15/16 17:20 Metamyelocytes % 1 % (-0) H 12/15/16 17:20 Neutrophils # (Manual) 3.0 10^3/uL (1.5-6.6) 12/15/16 17:20 Lymphocytes # (Manual) 0.7 10^3/uL (1.5-3.5) L 12/15/16 17:20 Monocytes # (Manual) 0.6 10^3/uL (0.0-1.0) 12/15/16 17:20 Eosinophils # (Manual) 0.0 10^3/uL (0-0.7) 12/15/16 17:20 Nucleated RBCs 0.1 /100WBC 12/17/16 06:40 Differential Comment MANUAL DIFFERENTIAL 12/15/16 17:20 WBC Morphology 1+ VACUOLATION (NORMAL) 12/15/16 17:20 Platelet Estimate NORMAL (130-450,000) (NORMAL) 12/15/16 17:20 Platelet Morphology PLATELET CLUMPING (NORMAL) 12/15/16 17:20 RBC Morph Micro Appear 2+ ANISOCYTOSIS (NORMAL) 1+ OVALOCYTES (NORMAL) 1+ POLYCHROMASIA (NORMAL) 12/15/16 17:20 RBC Morph Micro Appear 2+ ANISOCYTOSIS (NORMAL) 1+ OVALOCYTES (NORMAL) 1+ POLYCHROMASIA (NORMAL) 12/15/16 17:20 RBC Morph Micro Appear 2+ ANISOCYTOSIS (NORMAL) 1+ OVALOCYTES (NORMAL) 1+ POLYCHROMASIA (NORMAL) 12/15/16 17:20 PT 13.9 secs (9.9-12.6) H 12/13/16 05:33 INR 1.2 (0.8-1.2) 12/13/16 05:33 Sodium 141 mmol/L (135-145) 12/16/16 05:28 Potassium 3.9 mmol/L (3.5-5.0) 12/16/16 05:28 Chloride 110 mmol/L (101-111) 12/16/16 05:28 Carbon Dioxide 24 mmol/L (21-32) 12/16/16 05:28 Anion Gap 7.0 (6-13) 12/16/16 05:28 BUN 10 mg/dL (6-20) 12/16/16 05:28 Creatinine 0.4 mg/dL (0.4-1.0) 12/16/16 05:28 Estimated GFR (MDRD) 181 (>89) 12/16/16 05:28 Glucose 100 mg/dL (70-100) 12/16/16 05:28 Calcium 7.2 mg/dL (8.5-10.3) L 12/16/16 05:28 Phosphorus 2.5 mg/dL (2.5-4.6) 12/14/16 05:39 Magnesium 1.8 mg/dL (1.7-2.8) 12/14/16 05:39 Total Bilirubin 0.7 mg/dL (0.2-1.0) 12/16/16 05:28 AST 42 IU/L (10-42) 12/16/16 05:28 ALT 32 IU/L (10-60) 12/16/16 05:28 Alkaline Phosphatase 82 IU/L (42-121) 12/16/16 05:28 Total Protein 5.0 g/dL (6.7-8.2) L 12/16/16 05:28 Albumin 2.6 g/dL (3.2-5.5) L 12/16/16 05:28 Globulin 2.4 g/dL (2.1-4.2) 12/16/16 05:28 Albumin/Globulin Ratio 1.1 (1.0-2.2) 12/16/16 05:28 Lipase 37 U/L (22-51) 12/12/16 14:23 Serum HCG, Qual NEGATIVE 12/12/16 14:23 Urine Color YELLOW 12/13/16 17:00 Urine Clarity CLEAR (CLEAR) 12/13/16 17:00 Urine pH 6.0 PH (5.0-7.5) 12/13/16 17:00 Ur Specific [place] >=1.030 (1.002-1.030) H 12/13/16 17:00 Urine Protein NEGATIVE mg/dL (NEGATIVE) 12/13/16 17:00 Urine Glucose (UA) NEGATIVE mg/dL (NEGATIVE) 12/13/16 17:00 Urine Ketones 40 mg/dL (NEGATIVE) H 12/13/16 17:00 Urine Occult Blood NEGATIVE (NEGATIVE) 12/13/16 17:00 Urine Nitrite NEGATIVE (NEGATIVE) 12/13/16 17:00 Urine Bilirubin NEGATIVE (NEGATIVE) 12/13/16 17:00 Urine Urobilinogen 0.2 (NORMAL) E.U./dL (NORMAL) 12/13/16 17:00 Ur Leukocyte Esterase NEGATIVE (NEGATIVE) 12/13/16 17:00 Ur Microscopic Review NOT INDICATED 12/13/16 17:00 Urine Culture Comments NOT INDICATED 12/13/16 17:00 Blood Type AB POSITIVE 12/15/16 08:15 Blood Type Recheck AB POSITIVE 12/15/16 05:59 Antibody Screen NEGATIVE 12/15/16 08:15 Crossmatch IS Only See Detail 12/15/16 08:15 - Procedures Procedures: Procedures INSERT GASTRIC TUBE NEC (10/22/13) PARENTERAL INFUSION OF CONCENTRATED NUT. SUBSTANCE (10/16/14) REPOSITION R UP FEMUR WITH INTRAMED FIX, OPEN APPROACH (10/17/16) VENOUS CATHETERIZATION NEC (10/16/14)
--- NOTE | 2016-12-17 19:50 | PROVIDER PROGRESS NOTE ---
Assessment/Plan - Problem List (1) Left femoral shaft fracture Qualifiers: Encounter type: initial encounter Fracture type: closed Fracture morphology: transverse Fracture alignment: displaced Qualified Code(s): S72.322A - Displaced transverse fracture of shaft of left femur, initial encounter for closed fracture Assessment/Plan: POD#4 s/p Cephalomedullary Nailing Left Femur Subtrochanteric Fracture Patient on dilaudid IV for pain control with IV tylenol, PO oxy and PO dilaudid Worked with PT today and was able to walk and not just transfer. Needs one more session in the AM and then likely can be discharged Pain is controlled and she is using less and less IV meds Qualifiers: Encounter type: initial encounter Fracture type: closed Fracture morphology: transverse Fracture alignment: displaced Qualified Code(s): S72.322A - Displaced transverse fracture of shaft of left femur, initial encounter for closed fracture (2) Acute Blood Loss Anemia Conclusion/Plan: hb fell to 6.6 transfused 2 units and Hb down to 8.0 no evidence of bleeding Tachycardia and dizziness resolved Patient feels better BM with negative stools, no blood or melena Continue IV protonix for now will discontinue at discharge Monitor hb Likely blood loss from surgery and fracture although no major hematoma or bruising of the leg Continue to monitor hb she may need another transfer (3) Crohn disease Conclusion/Plan: Currently not having a flare Hold home dose of prednisone 7 mg daily for possible GI bleed will restart at discharge if no further drop in hb Continue home dose of budesonide Continue home dose of azathioprine Continue Humira weekly next dose scheduled for today will take home med Patient has chronic diarrhea for which she receives Lomotil at home this will be continued while hospitalized. Stable (4) Osteoporosis Conclusion/Plan: Patient has osteoporosis secondary to chronic steroid use. Patient now has had 2 femoral shaft fractures recently on the right currently on the left Fosamax has been related to femoral shaft fractures and patient is currently on Fosamax for osteoporosis. Continue vitamin D and calcium Consider stopping Fosamax given the second fracture will need to discuss with her PCP as an outpatient. (5) Depression Conclusion/Plan: currently stable continue home dose of Zoloft (6) Prophylactic use of low molecular weight heparin for venous thromboembolism Conclusion/Plan: On lovenox - Current Meds Current Meds: Current Medications Generic Name Dose Route Start Last Admin Trade Name Freq PRN Reason Stop Dose Admin Alendronate Sodium 70 mg 12/15/16 07:00 12/15/16 07:13 Fosamax PO Not Given Q7D MYRON Alprazolam 0.5 mg 12/12/16 17:58 12/17/16 10:34 Xanax PO 0.5 mg 5XD PRN Administration Anxiety Azathioprine 250 mg 12/13/16 09:00 12/17/16 07:44 Imuran PO 250 mg DAILY MYRON Administration Budesonide 9 mg 12/13/16 09:00 12/17/16 07:44 Entocort Ec PO 9 mg DAILY MYRON Administration Cholecalciferol 10,000 unit 12/13/16 09:00 12/17/16 07:44 Vitamin D3 PO 10,000 unit DAILY MYRON Administration Diphenhydramine HCl 25 mg 12/14/16 23:03 12/17/16 06:49 Benadryl Inj IVP 25 mg Q6H PRN Administration Agitation Diphenoxylate HCl/Atropine 2 tab 12/12/16 16:02 12/17/16 18:53 Lomotil PO 2 tab QID PRN Administration Diarrhea Famotidine 20 mg 12/12/16 21:00 12/17/16 07:45 Pepcid PO 20 mg BID MYRON Administration Folic Acid 1 mg 12/13/16 09:00 12/17/16 07:45 PO 1 mg DAILY MYRON Administration Gabapentin 1,800 mg 12/12/16 21:00 12/16/16 20:40 Neurontin PO 1,800 mg QPM MYRON Administration Gabapentin 900 mg 12/13/16 09:00 12/17/16 13:09 Neurontin PO 900 mg 0900,1400 MYRON Administration Hydromorphone HCl 2 mg 12/16/16 10:14 12/17/16 06:49 Dilaudid PO 2 mg Q4HR PRN Administration Severe Pain Hydromorphone HCl 1 mg 12/16/16 13:05 12/17/16 17:28 Dilaudid Inj IVP 1 mg Q6H PRN Administration Breakthrough Pain Sodium Chloride 1,000 mls @ 100 mls/hr 12/12/16 17:00 12/17/16 10:34 Normal Saline 0.9% IV 100 mls/hr .Q10H MYRON Administration Promethazine HCl 25 mg/ Sodium 51 mls @ 100 mls/hr 12/13/16 15:10 12/17/16 15: 59 Chloride IV 100 mls/hr Q6H PRN Administration Nausea / Vomiting Acetaminophen 100 mls @ 400 mls/hr 12/16/16 13:07 12/17/16 13:08 Ofirmev IV 400 mls/hr Q6HR PRN Administration PAIN Lorazepam 1 mg 12/14/16 12:40 12/17/16 03:52 Ativan Inj IVP 1 mg Q6H PRN Administration Nausea / Vomiting Ondansetron HCl 4 mg 12/12/16 16:03 12/16/16 16:07 Zofran Odt TL 4 mg Q6HR PRN Administration Nausea / Vomiting Ondansetron HCl 4 mg 12/16/16 14:36 12/17/16 17:15 Zofran Inj IVP 4 mg Q6HR PRN Administration Nausea / Vomiting Oxycodone HCl 10 mg 12/16/16 13:05 12/17/16 16:00 Roxicodone PO 10 mg Q4HR PRN Administration PAIN Pantoprazole Sodium 40 mg 12/15/16 21:00 12/17/16 07:44 Protonix IVP 40 mg BID MYRON Administration (Adalimumab [Humira] 1 each 12/14/16 09:00 12/14/16 10:36 40 Mg) Subq SUBQ 1 each Injection Q7D MYRON Administration Polyethylene Glycol 17 gm 12/13/16 09:00 12/17/16 07:45 Miralax PO Not Given DAILY MYRON Prochlorperazine Edisylate 10 mg 12/12/16 16:03 12/17/16 13:09 Compazine Inj IVP 10 mg Q6HR PRN Administration Nausea / Vomiting Promethazine HCl 25 mg 12/12/16 16:03 12/16/16 10:43 Phenergan Inj IM 25 mg Q6HR PRN Administration Nausea / Vomiting Scopolamine HBr 1 patch 12/13/16 12:00 12/16/16 08:19 Transderm-Scop TOP 1 patch Q3D MYRON Administration Sertraline HCl 100 mg 12/13/16 09:00 12/17/16 07:44 Zoloft PO 100 mg DAILY MYRON Administration Sodium Chloride 10 ml 12/12/16 16:03 12/17/16 02:10 Normal Saline Flush 0.9% IVP 10 ml PRN PRN Administration NEEDED PER PROVIDER ORDERS Sodium Chloride 10 ml 12/12/16 22:00 12/17/16 07:46 Normal Saline Flush 0.9% IVP Not Given Q8HR MYRON - Lab Result Lab results reviewed: Yes Fish Bone Diagrams: 12/17/16 06:40 12/16/16 05:28 - EKG Results EKG Interpreted Independently: Yes - Diagnostic Imaging Results Diagnostic Imaging Results: positive: Final report reviewed - Additional Planning Condition/Complexity: Improved My Orders: My Active Orders 12/18/16 05:00 CBC - COMP BLD CT W/AUTO DIFF [HEME] DAILYLAB CMP, RFLX TO IONIZED CA IF [CHEM] DAILYLAB Consult/Specialty: PT Plan Discussed with:: Patient, Spouse Time Spent: 31-60 minutes Subjective - Subjective Patient Reports: Feeling Better, Pain (COntrolled) Nursing Reports: Pain Objective Vital Signs: Vital Signs - 24 hr 12/17/16 12/17/16 12/17/16 01:17 10:00 16:19 Temperature 37.2 C 36.8 C 36.9 C Heart Rate [ 88 72 77 Brachial] Respiratory 18 18 20 Rate Blood Pressure 126/77 121/77 123/76 [Right Brachial artery] O2 Saturation 94 96 Oxygen O2 Source Room air I&O (Last 24 Hrs): Intake and Output Totals x24h 12/15/16 12/16/16 12/17/16 23:59 23:59 23:59 Intake Total 1452 1946 2846 Output Total 850 3000 2350 Balance 602 -1054 496 General: Alert, Oriented x3, Cooperative, No acute distress HEENT: Atraumatic, PERRLA, EOMI, Mucous membr. moist/pink Neck: Supple, No JVD, No thyromegaly, +2 carotid pulse wo bruit, No LAD Lymphatic: no adenopathy Neuro: Alert, Non Focal, CN 2-12 Grossly Intact, Oriented Times 3 Cardiovascular: Regular rate, Normal S1, Normal S2, No murmurs Respiratory: Chest non-tender, No respiratory distress, Breath sounds nml Abdomen: Normal bowel sounds, Soft, No tenderness, No hepatospenomegaly Extremities: No clubbing, No cyanosis, No edema, Normal pulses, Other (surgical site appears clean) Skin: No rashes, No breakdown - Results Results: Laboratory Results WBC 5.2 x10^3/uL (4.8-10.8) 12/17/16 06:40 RBC 2.70 10^6/uL (4.20-5.40) L 12/17/16 06:40 Hgb 8.0 g/dL (12.0-16.0) L 12/17/16 06:40 Hct 24.3 % (37.0-47.0) L 12/17/16 06:40 MCV 89.9 fL (81.0-99.0) 12/17/16 06:40 MCH 29.7 pg (27.0-31.0) 12/17/16 06:40 MCHC 33.1 g/dL (32.0-36.0) 12/17/16 06:40 RDW 17.7 % (12.0-15.0) H 12/17/16 06:40 Plt Count 166 10^3/uL (130-450) 12/17/16 06:40 MPV 9.1 fL (7.9-10.8) 12/17/16 06:40 Neut # 3.3 10^3/uL (1.5-6.6) 12/17/16 06:40 Lymph # 1.2 10^3/uL (1.5-3.5) L 12/17/16 06:40 [place] # 0.5 10^3/uL (0.0-1.0) 12/17/16 06:40 Eos # 0.1 10^3/uL (0.0-0.7) 12/17/16 06:40 Baso # 0.0 10^3/uL (0.0-0.1) 12/17/16 06:40 Absolute Nucleated RBC 0.01 x10^3/uL 12/17/16 06:40 Total Counted 100 12/15/16 17:20 Band Neuts % (Manual) 19 % (0-10) H 12/15/16 17:20 Metamyelocytes % 1 % (-0) H 12/15/16 17:20 Neutrophils # (Manual) 3.0 10^3/uL (1.5-6.6) 12/15/16 17:20 Lymphocytes # (Manual) 0.7 10^3/uL (1.5-3.5) L 12/15/16 17:20 Monocytes # (Manual) 0.6 10^3/uL (0.0-1.0) 12/15/16 17:20 Eosinophils # (Manual) 0.0 10^3/uL (0-0.7) 12/15/16 17:20 Nucleated RBCs 0.1 /100WBC 12/17/16 06:40 Differential Comment MANUAL DIFFERENTIAL 12/15/16 17:20 WBC Morphology 1+ VACUOLATION (NORMAL) 12/15/16 17:20 Platelet Estimate NORMAL (130-450,000) (NORMAL) 12/15/16 17:20 Platelet Morphology PLATELET CLUMPING (NORMAL) 12/15/16 17:20 RBC Morph Micro Appear 2+ ANISOCYTOSIS (NORMAL) 1+ OVALOCYTES (NORMAL) 1+ POLYCHROMASIA (NORMAL) 12/15/16 17:20 RBC Morph Micro Appear 2+ ANISOCYTOSIS (NORMAL) 1+ OVALOCYTES (NORMAL) 1+ POLYCHROMASIA (NORMAL) 12/15/16 17:20 RBC Morph Micro Appear 2+ ANISOCYTOSIS (NORMAL) 1+ OVALOCYTES (NORMAL) 1+ POLYCHROMASIA (NORMAL) 12/15/16 17:20 PT 13.9 secs (9.9-12.6) H 12/13/16 05:33 INR 1.2 (0.8-1.2) 12/13/16 05:33 Sodium 141 mmol/L (135-145) 12/16/16 05:28 Potassium 3.9 mmol/L (3.5-5.0) 12/16/16 05:28 Chloride 110 mmol/L (101-111) 12/16/16 05:28 Carbon Dioxide 24 mmol/L (21-32) 12/16/16 05:28 Anion Gap 7.0 (6-13) 12/16/16 05:28 BUN 10 mg/dL (6-20) 12/16/16 05:28 Creatinine 0.4 mg/dL (0.4-1.0) 12/16/16 05:28 Estimated GFR (MDRD) 181 (>89) 12/16/16 05:28 Glucose 100 mg/dL (70-100) 12/16/16 05:28 Calcium 7.2 mg/dL (8.5-10.3) L 12/16/16 05:28 Phosphorus 2.5 mg/dL (2.5-4.6) 12/14/16 05:39 Magnesium 1.8 mg/dL (1.7-2.8) 12/14/16 05:39 Total Bilirubin 0.7 mg/dL (0.2-1.0) 12/16/16 05:28 AST 42 IU/L (10-42) 12/16/16 05:28 ALT 32 IU/L (10-60) 12/16/16 05:28 Alkaline Phosphatase 82 IU/L (42-121) 12/16/16 05:28 Total Protein 5.0 g/dL (6.7-8.2) L 12/16/16 05:28 Albumin 2.6 g/dL (3.2-5.5) L 12/16/16 05:28 Globulin 2.4 g/dL (2.1-4.2) 12/16/16 05:28 Albumin/Globulin Ratio 1.1 (1.0-2.2) 12/16/16 05:28 Lipase 37 U/L (22-51) 12/12/16 14:23 Serum HCG, Qual NEGATIVE 12/12/16 14:23 Urine Color YELLOW 12/13/16 17:00 Urine Clarity CLEAR (CLEAR) 12/13/16 17:00 Urine pH 6.0 PH (5.0-7.5) 12/13/16 17:00 Ur Specific [place] >=1.030 (1.002-1.030) H 12/13/16 17:00 Urine Protein NEGATIVE mg/dL (NEGATIVE) 12/13/16 17:00 Urine Glucose (UA) NEGATIVE mg/dL (NEGATIVE) 12/13/16 17:00 Urine Ketones 40 mg/dL (NEGATIVE) H 12/13/16 17:00 Urine Occult Blood NEGATIVE (NEGATIVE) 12/13/16 17:00 Urine Nitrite NEGATIVE (NEGATIVE) 12/13/16 17:00 Urine Bilirubin NEGATIVE (NEGATIVE) 12/13/16 17:00 Urine Urobilinogen 0.2 (NORMAL) E.U./dL (NORMAL) 12/13/16 17:00 Ur Leukocyte Esterase NEGATIVE (NEGATIVE) 12/13/16 17:00 Ur Microscopic Review NOT INDICATED 12/13/16 17:00 Urine Culture Comments NOT INDICATED 12/13/16 17:00 Blood Type AB POSITIVE 12/15/16 08:15 Blood Type Recheck AB POSITIVE 12/15/16 05:59 Antibody Screen NEGATIVE 12/15/16 08:15 Crossmatch IS Only See Detail 12/15/16 08:15 - Procedures Procedures: Procedures INSERT GASTRIC TUBE NEC (10/22/13) PARENTERAL INFUSION OF CONCENTRATED NUT. SUBSTANCE (10/16/14) REPOSITION R UP FEMUR WITH INTRAMED FIX, OPEN APPROACH (10/17/16) VENOUS CATHETERIZATION NEC (10/16/14)
[2016-12-18] MEDS: diphenhydrAMINE INJ 50 MG/ML VIAL IVP PRN (01:37)
[2016-12-18] MEDS: HYDROmorphone 1 MG/ML SYRINGE IVP PRN (01:37)
[2016-12-18] MEDS: ONDANSETRON 4 MG/2 ML VIAL IVP PRN (01:37)
[2016-12-18] MEDS: SODIUM CHLORIDE FLUSH 0.9% 10 ML SYRINGE IVP PRN (01:37)
[2016-12-18] MEDS: DIPHENOX/ATROPINE 2.5/0.025 MG TABLET PO PRN ×3 (01:38→12:21)
[2016-12-18] MEDS: HYDROmorphone 2 MG TABLET PO PRN ×2 (06:14→12:20)
[2016-12-18] MEDS: LORazepam 2 MG/ML SYRINGE IVP PRN (06:15)
[2016-12-18] MEDS: SODIUM CHLORIDE 0.9% 1,000 ML IV SCH (07:03)
[2016-12-18] MEDS: SODIUM CHLORIDE FLUSH 0.9% 10 ML SYRINGE IVP SCH (07:04)
[2016-12-18 07:11] LABS: ALBUMIN/GLOBULIN RATIO 0.9 (1.0-2.2); BASOPHILS % (AUTO) 0.3 %; BILIRUBIN,TOTAL 0.8 mg/dL (0.2-1.0); BUN - BLOOD UREA NITROGEN 6 mg/dL (6-20); CALCIUM 8.2 mg/dL (8.5-10.3); CARBON DIOXIDE - CO2 24 mmol/L (21-32); CHLORIDE 108 mmol/L (101-111); CREATININE 0.5 mg/dL (0.4-1.0); GFR - MDRD 140 (>89); GLUCOSE 106 mg/dL (70-100); HCT - HEMATOCRIT 30.7 % (37.0-47.0); HGB - HEMOGLOBIN 9.8 g/dL (12.0-16.0); LYMPHOCYTES % (AUTO) 31.4 %; MEAN CORPUSCULAR HEMOGLOBIN 29.2 pg (27.0-31.0); MEAN CORPUSCULAR HGB CONC 31.9 g/dL (32.0-36.0); MEAN CORPUSCULAR VOLUME 91.5 fL (81.0-99.0); MEAN PLATELET VOLUME 9.7 fL (7.9-10.8); MONOCYTES % (AUTO) 9.2 %; NEUTROPHILS % (AUTO) 57.1 %; POTASSIUM 3.4 mmol/L (3.5-5.0); RED BLOOD COUNT 3.36 10^6/uL (4.20-5.40); RED CELL DISTRIBUTION WIDTH 17.6 % (12.0-15.0); SODIUM 142 mmol/L (135-145); TOTAL PROTEIN 6.2 g/dL (6.7-8.2); UNCORRECTED WHITE BLOOD COUNT 8.7 x10^3/uL; WHITE BLOOD COUNT 8.7 x10^3/uL (4.8-10.8)
[2016-12-18 07:23] LABS: CALCIUM, IONIZED 0.98 mmol/L (1.15-1.33); VBG PH 7.45 (7.31-7.41)
[2016-12-18 07:26] LABS: BAND NEUTROPHILS % (MANUAL) 0 %
[2016-12-18 07:49] LABS: BASOPHILS % (MANUAL) 1 %; EOSINOPHILS % (MANUAL) 1 %; LYMPHOCYTES % (MANUAL) 40 %; NEUTROPHILS % (MANUAL) 52 %; NP AUTO DIFFERENTIAL? YES; NP MAN DIFFERENTIAL? NO; PLATELET MORPHOLOGY RARE GIANT PLATELETS (NORMAL); TOTAL CELLS COUNTED 100
[2016-12-18] MEDS: PANTOPRAZOLE 40 MG VIAL IVP SCH (08:57)
[2016-12-18] MEDS: azaTHIOprine 50 MG TABLET PO SCH (08:58)
[2016-12-18] MEDS: GABAPENTIN 300 MG CAPSULE PO SCH (08:58)
[2016-12-18] MEDS: POLYETHYLENE GLYCOL 3350 17 GM PACKET PO SCH (08:58)
[2016-12-18] MEDS: FOLIC ACID 1 MG TABLET PO SCH (08:58)
[2016-12-18] MEDS: SERTRALINE 50 MG TABLET PO SCH (08:58)
[2016-12-18] MEDS: FAMOTIDINE 20 MG TABLET PO SCH (08:59)
[2016-12-18] MEDS: oxyCODONE 5 MG TABLET PO PRN (08:59)
[2016-12-18] MEDS: CHOLECALCIFEROL 5,000 UNIT CAPSULE PO SCH (08:59)
[2016-12-18] MEDS ORDERED: CALCIUM GLUCONATE 2,000 MG in SODIUM CHLORIDE 0.9% 100ML 100 ML IV ONE (09:30)
[2016-12-18] MEDS: BUDESONIDE 3 MG CAPSULE PO SCH (09:32)
[2016-12-18 09:35] VITALS: BP 130/83
--- NOTE | 2016-12-18 12:14 | Discharge Plan ---
Discharge Plan Disposition: Home Health Service Condition: Stable Diet: Regular Activity Restrictions: Wt Bearing as Tolerated Shower Restrictions: No Driving Restrictions: No Assistance Devices: Walker Weight Bearing: Full Weight Additional Instructions or Follow Up instructions: We ordered home health PT you should receive a call soon to schedule home health. Your calcium level was low I recommend starting a calcium supplement. Follow up with orthopedics in 2 weeks. Follow up with your primary care physician if you need refills on any of your medications. Please speak with your PCP in regards to whether you want to continue to take the aldendronate. Follow-Up Care: Home Health - OT No Smoking: If you smoke, Please STOP! Call for help.
[2016-12-18] MEDS: ALPRAZolam 0.25 MG TABLET PO PRN (12:21)
--- NOTE | 2016-12-19 10:22 | DISCHARGE SUMMARY ---
DATE OF ADMISSION: 12/12/2016 DATE OF DISCHARGE: 12/18/2016 PRIMARY CARE PHYSICIAN: Khadar Oconnor MD DISCHARGING PHYSICIAN: Aayush Farrar MD DISCHARGE DIAGNOSES 1. Left femoral shaft fracture status post cephalomedullary nailing of left femur subtrochanteric fra cture. 2. Acute blood loss anemia. 3. Crohn disease. 4. Osteoporosis. 5. Depression. 6. Prophylactic use of low molecular weight heparin. DISCHARGE MEDICATIONS 1. Vitamin D3, 5000 units p.o. b.i.d. 2. Prednisone 7 mg p.o. daily. 3. Oxycodone 10 mg p.o. q.6h. p.r.n. for pain. 4. Dilaudid 2 mg p.o. q.6h. p.r.n. for pain. 5. Folic acid 1 mg p.o. daily. 6. Azathioprine 250 mg p.o. daily. 7. Fosamax 70 mg p.o. every 7 days. 8. Budesonide 9 mg p.o. daily. 9. Humira 40 mg subcutaneous every 7 days. 10. Gabapentin 900 mg p.o. b.i.d. and 1800 mg p.o. q.p.m. 11. Phenergan 25 mg p.o. t.i.d. 12. Zofran ODT 8 mg p.o. q.i.d. p.r.n. for nausea or vomiting. 13. Sumatriptan 20 mg nasal every day p.r.n. for migraine. 14. Zoloft 100 mg p.o. q.p.m. 15. Alprazolam 0.5 mg p.o. t.i.d. and 1 mg q.p.m. 16. Pepcid 20 mg p.o. b.i.d. 17. Protonix 40 mg p.o. daily. 18. Lomotil 2 pills p.o. q.i.d. p.r.n. for diarrhea. 19. Questran 4 mg p.o. t.i.d. p.r.n. for diarrhea. 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 The patient had a mechanical fall at home where she fell o n the left hip and was unable to get up and was in severe pain. The patient on presentation to the ergency department was afebrile and had stable vital signs. Her x-ray of the left femur revealed a co mpletely displaced and overriding proximal shaft fracture of the left femur. The patient was admitted to the hospitalist team with his orthopedic consult. Her pain was controlled with IV pain medication . She was placed in a traction device, and the following day was taken for surgery by Dr. Sullivan of [facility]. He performed a cephalomedullary nailing of the left femur subtrochanteric fracture . The patient postoperatively was slow to improve given that this was her second fracture in just a f ew months. The patient did have a drop in her hemoglobin and this was thought to be acute blood loss anemia. Her hemoglobin dropped down to 6.6 from 11. The patient was transfused 2 units of packed RBCs , which hemoglobin did stabilize up to 9.8 at discharge. The patient's blood loss appeared likely to be secondary to her fracture and surgery. The patient did have quite a lot of drainage from the surgi presley site over the 5 days postoperatively. The drainage was minimal on the date of discharge. The alissa ent's pain was controlled during the hospitalization, she was discharged home back on her oral regime n of pain medication. The patient's stool was checked for blood and the patient did not have any bloo dy stools. Also, she did receive Protonix for several days IV as we were initially concerned about a GI bleed; however, the patient did not appear to have any GI bleed. The patient also was discharged w [facility] home PT, she will be taken care of by her , who will be home, and then her parents who are coming up to take care of her. The patient was in stable condition and improving at the time of disc harge. She did work with Physical Therapy prior to discharge and was able to ambulate with assistance . The patient will have another long road to recovery, but we are wishing her the best of luck as she is a delightful patient. PHYSICAL EXAMINATION AT DISCHARGE VITAL SIGNS: Temperature 37.4, heart rate 88, blood pressure 130/83, respiratory rate 16, O2 saturati on 95% on room air. GENERAL: The patient does not appear to be in any acute distress. She is alert and able to answer all my questions appropriately. HEENT: Pupils are equal and reactive to light. Extraocular muscles are intact. Mucous membranes are m oist. There is no conjunctival pallor or scleral icterus noted. NECK: Supple, no thyromegaly. No JVD. Trachea is midline. LYMPH NODES: There is no cervical or axillary lymphadenopathy noted. CARDIOVASCULAR: S1, S2, regular rate and rhythm. No murmurs, rubs, or gallops. LUNGS: Clear to auscultation bilaterally. No wheezes, rhonchi, or crackles. ABDOMEN: Soft, nontender, nondistended. Bowel sounds are present in all 4 quadrants. EXTREMITIES: There is no lower extremity edema. Peripheral pulses are palpable. There is no cyanosis or clubbing. MUSCULOSKELETAL: The patient has decreased range of motion in the left lower extremity secondary to h er fracture. The patient's left upper thigh is very swollen, the surgical site appears to be clean. T here is minimal drainage. SKIN: No skin rashes, lesions, cellulitis, or abscesses. NEUROLOGIC: The patient is alert and oriented x3. Cranial nerves 2-12 are grossly intact. Strength is grossly normal. Sensations are intact. LABORATORY: WBC is 8.7, hemoglobin 9.8, hematocrit 30.7, platelet count 230. INR is 1.2, ionized calc ium 0.98. Sodium 142, potassium 3.4, chloride 108, carbon dioxide 24, BUN 6, creatinine 0.5, glucose 106, calcium 8.2, total bilirubin 0.8, AST 58, ALT 42, alkaline phosphatase 101, total protein 6.2, a lbumin 3.0. Lipase negative. Serum hCG negative. UA negative. IMAGING 1. X-ray of femur, impression: Completely displaced and overriding proximal shaft fracture of the lef t femur. 2. Femur x-ray postoperatively, impression: Dynamic compression screw and long intramedullary marsha fix ation of the left femoral shaft fracture. FOLLOWUP/RECOMMENDATIONS: The patient is being discharged home after repair of a left femoral shaft f racture. The patient will receive home PT to help in recovery. She had pain controlled. She has pain medication that she is taking at home and will receive any additional refills from her primary care marcie ernst. The patient was in stable condition at the time of discharge. She did have acute blood loss anemia during the hospitalization for which she was transfused 2 units, but her hemoglobin was stabl e at the time of discharge. We did work her up for GI bleed, workup was negative. The patient was dis charged in stable condition. Greater than 30 minutes were spent on discharge. JOB #: [id number] EXT JOB #:[id number]
--- NOTE | 2017-01-18 14:22 | XRAY Report ---
[facility]: Fluoroscopy time only, no images submitted for interpretation. Fluoroscopy time 1 minutes, 17 seconds. FLORENCIA
== END 2016-12-18 13:01 | disposition home health service (06) | DRG 481 ==
LOC: EDUNIT# → ED 14:35 → MS 16:03
PROVIDERS: ADMIT Internal Medicine; ATTEND Internal Medicine
PROC: 0QS706Z Reposition Left Upper Femur with Intramedullary Internal Fixation Device, Open Approach (ICD-10-PCS; principal; 2016-12-13 07:30)
PROC: 30233N1 Transfusion of Nonautologous Red Blood Cells into Peripheral Vein, Percutaneous Approach (ICD-10-PCS; 2016-12-15)
DX: S72.22XA Displaced subtrochanteric fracture of left femur, initial encounter for closed fracture (principal); D62 Acute posthemorrhagic anemia; K50.90 Crohn's disease, unspecified, without complications; E24.2 Drug-induced Cushing's syndrome; M81.8 Other osteoporosis without current pathological fracture; E09.8 Drug or chemical induced diabetes mellitus with unspecified complications; T38.0X5S Adverse effect of glucocorticoids and synthetic analogues, sequela; W01.0XXA Fall on same level from slipping, tripping and stumbling without subsequent striking against object, initial encounter; F32.9 Major depressive disorder, single episode, unspecified; K21.9 Gastro-esophageal reflux disease without esophagitis; E83.51 Hypocalcemia; G43.909 Migraine, unspecified, not intractable, without status migrainosus; F41.9 Anxiety disorder, unspecified; Y93.89 Activity, other specified; Y99.9 Unspecified external cause status; Y92.009 Unspecified place in unspecified non-institutional (private) residence as the place of occurrence of the external cause; S72.301D Unspecified fracture of shaft of right femur, subsequent encounter for closed fracture with routine healing; W19.XXXD Unspecified fall, subsequent encounter; Z91.81 History of falling; Z87.891 Personal history of nicotine dependence; Z79.891 Long term (current) use of opiate analgesic; Z79.52 Long term (current) use of systemic steroids; Z79.899 Other long term (current) drug therapy
CPT/HCPCS: 36415; 64450; 80053; 81001; 81003; 82270; 82330; 83690; 83735; 84100; 84703; 85025; 85610; 86850; 86900; 86901; 86920; 87086; 96374; 96376; 99284; 99285

== ENCOUNTER 2016-12-26 09:10 | Outpatient (CLI) | payer OTHER ==
--- NOTE | 2016-12-27 16:49 | Mammography Report ---
DIGITAL SCREENING MAMMOGRAM: 12/26/2016 CLINICAL INDICATION: A 36-year-old nulliparous patient for baseline. TECHNIQUE: Routine CC and MLO projections were obtained of the breasts. FINDINGS: The breasts demonstrate heterogeneously dense fibroglandular parenchyma bilaterally. No s uspicious masses, clustered microcalcifications, or regions of architectural distortion are identifie d. IMPRESSION: NEGATIVE EXAMINATION. RECOMMENDATION: Routine annual screening, to commence at age 40 unless otherwise clinically indicate d. BIRADS CATEGORY 1 - NEGATIVE. STANDARD QUALIFYING STATEMENTS 1. This examination was reviewed with the aid of Computer-Aided Detection (CAD). 2. A negative or benign imaging report should not delay biopsy if clinically suspicious findings are present. Consider surgical consultation if warranted. More than 5% of cancers are not identified by i maging. 3. Dense breasts may obscure an underlying neoplasm. JOB #: [id number] EXT JOB #:[id number]
== END 2016-12-26 09:11 | disposition home or self-care (01) ==
LOC: DI 09:10
PROVIDERS: ATTEND Family Medicine
DX: Z12.31 Encounter for screening mammogram for malignant neoplasm of breast (principal)
CPT/HCPCS: 77067

== ENCOUNTER 2016-12-26 09:12 | Outpatient (CLI) | payer OTHER ==
--- NOTE | 2016-12-26 12:53 | DEXA Report ---
DEXA SCAN: 12/26/2016 CLINICAL INDICATION: History of osteoporosis, fractures. TECHNIQUE: Dual energy x-ray absorptiometry (DXA) was performed on a [employer] system. Regions measured are the AP spine, femoral neck, and, if needed, forearm. COMPARISON: None. In accordance with the International Society for Clinical Densitometry (ISCD) guidelines, data from previous exams may be reanalyzed using current recommendations and techniques. This is done to allow a more accurate basis for comparison with the current study. FINDINGS: The data for the lumbar spine is as follows: REGION BMD (g/cm/cm) T-SCORE Z-SCORE L1 1.170 0.3 -0.8 L2 1.244 0.4 -0.8 L3 1.201 0.0 -1.2 L4 1.225 0.2 -1.0 TOTAL 1.211 0.3 -0.9 NOTE: All evaluable vertebrae are used for classification. The data for the forearm is as follows: REGION BMD (g/cm/cm) T-SCORE Z-SCORE 1/3 0.837 -0.4 -0.4 NOTE: The 33% radius of the nondominant forearm is used for classification. IMPRESSION: 1. THE WHO CLASSIFICATION BASED ON THE INTERNATIONAL REFERENCE STANDARD IS NORMAL. THE FRACTURE RISK IS NOT INCREASED. 2. HIP EVALUATION COULD NOT BE PERFORMED, DUE TO PREVIOUS FEMORAL FRACTURE FIXATIONS. RECOMMENDATION: Patients with diagnosis of osteoporosis or osteopenia should have regular bone mineral density assessment. For those eligible for Medicare, routine testing is allowed once every 2 years. Testing frequency can be increased for patients who have rapidly progressing disease or for those who are receiving medical therapy to restore bone mass. COMMENT: World Health Organization (WHO) definitions for osteoporosis and osteopenia: NORMAL BMD: T-score at -1.0 or higher, fracture risk is low. OSTEOPENIA BMD: T-score between -1.0 and -2.5, fracture risk is increased. OSTEOPOROSIS BMD: T-score at -2.5 or lower, fracture risk high. National Osteoporosis Foundation recommends: 1. Obtain adequate dietary calcium (at least 1200 mg per day) and vitamin D (400 -800 international units per day). 2. Participate, as appropriate, in regular weightbearing and muscle- strengthening exercise. 3. Avoid tobacco use and reduce alcohol and caffeine intake. 4. For more detailed information see the website at www.NOF.org. MTDD
== END 2016-12-26 09:13 | disposition home or self-care (01) ==
LOC: DI 09:12
PROVIDERS: ATTEND Family Medicine
DX: M81.0 Age-related osteoporosis without current pathological fracture (principal)
CPT/HCPCS: 77080; 77081

== ENCOUNTER 2016-12-27 12:33 | Outpatient (CLI) | payer OTHER ==
[2016-12-27 13:40] LABS: BILIRUBIN,DIRECT 0.2 mg/dL (0.1-0.5); BILIRUBIN,TOTAL 1.1 mg/dL (0.2-1.0); TOTAL PROTEIN 7.3 g/dL (6.7-8.2)
[2017-01-01 15:16] LABS: TEST RESULT REPORT (())
== END 2016-12-27 12:34 | disposition home or self-care (01) ==
LOC: LAB 12:33
PROVIDERS: ATTEND Internal Medicine Gastroenterology
DX: K50.90 Crohn's disease, unspecified, without complications (principal)
CPT/HCPCS: 36415; 80076; 80299; 81599; 82977; 86317; 86480; 86803; 87340

== ENCOUNTER 2017-02-02 08:04 | Outpatient (CLI) | payer OTHER ==
[2017-02-02] MEDS ORDERED: GADOBUTROL 10 MMOL/10 ML VIAL IVP ONE (09:48)
--- NOTE | 2017-02-02 10:55 | MRI Report ---
EXAM: MR ABDOMEN WITH AND WITHOUT CONTRAST (MR LIVER AND MRCP) EXAM DATE: 02/02/2017 09:50 AM. CLINICAL HISTORY: Crohn's disease. COMPARISON: None available. TECHNIQUE: Multiplanar breath-hold T1, T2, and DWI sequences obtained through the liver and abdomen o n an MR scanner. Dedicated 2D and 3D MRCP sequences obtained through the biliary and pancreatic ducts . Images obtained before and after administration of 10 mL Gadavist intravenous contrast. Multiphase postcontrast sequences obtained through the pancreas. FINDINGS: Lung Bases: The lung bases are clear. Liver: The liver has normal size, morphology and signal. No evidence of mass. Tiny cystic lesion in t he right hepatic lobe series 401 image 14 measuring 0.4 cm. A few of the intrahepatic bile ducts show a beaded appearance, for example series 1201 image 51 in the left hepatic duct and image 59 in the r ight hepatic duct. CBD: The CBD measures up to 8 mm in diameter. Gallbladder: The gallbladder is absent. Pancreas: The pancreas appears normal with no mass. The pancreatic duct measures 2 mm in diameter and appears normal with no stone or stricture. Spleen: The spleen appears normal. Kidneys and Adrenals: The kidneys appear normal with no mass or hydronephrosis. There are no cysts in the kidneys. The adrenals appear normal. Bowel: The small bowel and colon appear normal with no inflammation or obstruction. Retroperitoneum: The retroperitoneal structures appear normal with no mass or lymphadenopathy. IMPRESSION: 1. Relatively mild beaded appearance/contour of a few intrahepatic bile ducts, appearance suggestive of PSC. 2. The extrahepatic bile duct is prominent measuring up to 8 mm in diameter, but this could be relate d to previous cholecystectomy. 3. No other significant abnormality. [facility] Referring Provider Line: [phone] SITE ID: [id number]
== END 2017-02-02 08:05 | disposition home or self-care (01) ==
LOC: DI 08:04
PROVIDERS: ATTEND Internal Medicine Gastroenterology
DX: K50.90 Crohn's disease, unspecified, without complications (principal)
CPT/HCPCS: 74183; A9585

== ENCOUNTER 2017-03-04 00:12 | Emergency (ER) | payer OTHER ==
[2017-03-04 00:43] LABS: BILIRUBIN,URINE NEGATIVE (NEGATIVE); UA w/ MICROSCOPIC CHARGE YES; WBC,URINE 0-3 /HPF (0-5)
[2017-03-04 00:44] LABS: UR CULTURE IF IND NOT INDICATED
[2017-03-04 00:47] LABS: BASOPHILS % (AUTO) 0.4 %; EOSINOPHILS # (AUTO) 0.1 10^3/uL (0.0-0.7); EOSINOPHILS % (AUTO) 0.7 %; HCT - HEMATOCRIT 40.6 % (37.0-47.0); HGB - HEMOGLOBIN 13.5 g/dL (12.0-16.0); LYMPHOCYTES # (AUTO) 1.1 10^3/uL (1.5-3.5); LYMPHOCYTES % (AUTO) 14.7 %; MEAN CORPUSCULAR HEMOGLOBIN 31.8 pg (27.0-31.0); MEAN CORPUSCULAR HGB CONC 33.3 g/dL (32.0-36.0); MEAN CORPUSCULAR VOLUME 95.3 fL (81.0-99.0); MEAN PLATELET VOLUME 10.3 fL (7.9-10.8); MONOCYTES # (AUTO) 0.4 10^3/uL (0.0-1.0); MONOCYTES % (AUTO) 4.6 %; NEUTROPHILS % (AUTO) 79.6 %; NUCLEATED RED BLOOD CELLS AUTO 0.1 /100WBC; RED BLOOD COUNT 4.26 10^6/uL (4.20-5.40); RED CELL DISTRIBUTION WIDTH 18.3 % (12.0-15.0); UNCORRECTED WHITE BLOOD COUNT 7.6 x10^3/uL; WHITE BLOOD COUNT 7.6 x10^3/uL (4.8-10.8)
[2017-03-04 00:54] LABS: INR 1.2 (0.8-1.2)
[2017-03-04 00:55] LABS: ALBUMIN/GLOBULIN RATIO 1.4 (1.0-2.2); BILIRUBIN,TOTAL 0.8 mg/dL (0.2-1.0); CALCIUM 9.6 mg/dL (8.5-10.3); CREATININE 0.8 mg/dL (0.4-1.0); POTASSIUM 3.8 mmol/L (3.5-5.0); TOTAL PROTEIN 7.5 g/dL (6.7-8.2)
[2017-03-04 00:56] LABS: HCG UR QUAL NEGATIVE
[2017-03-04 01:01] LABS: PARTIAL THROMBOPLASTIN TIME 31.8 secs (24.9-33.3)
[2017-03-04] MEDS ORDERED: SODIUM CHLORIDE 0.9% 1,000 ML IV ONE (01:08)
[2017-03-04] MEDS ORDERED: HYDROmorphone 1 MG/ML SYRINGE IVP STA ×3 (01:08→03:11)
[2017-03-04] MEDS ORDERED: HYDROmorphone 1 MG/ML SYRINGE ONE ×3 (01:15→03:16)
[2017-03-04] MEDS ORDERED: IOPAMIDOL-300 100 ML VIAL IVP ONE (01:39)
--- NOTE | 2017-03-04 01:58 | CT Preliminary Report ---
Exam: CT Abdomen/Pelvis W/ IMPRESSION: 1. Fatty liver. 2. Small subtle foci of decreased enhancement in both kidneys without contour deforming mass. Appeara nce is nonspecific. Focal bacterial nephritis would be a possibility. Malignancy is unlikely. Renal p rotocol MRI could be considered for follow-up. 3. No other acute inflammatory or obstructive process identified in the abdomen or pelvis. [facility] SITE ID: [id number]
--- NOTE | 2017-03-04 02:01 | CT Report ---
EXAM: CT ABDOMEN AND PELVIS EXAM DATE: 03/04/2017 01:26 AM. CLINICAL HISTORY: Abdominal pain and hematuria post liver biopsy. COMPARISONS: 10/22/2013. TECHNIQUE: Routine helical CT imaging was performed through the abdomen and pelvis. IV contrast: Keesha onic. Enteric contrast: No. Reconstructions: Coronal and sagittal. In accordance with CT protocol optimization, one or more of the following dose reduction techniques w ere utilized for this exam: automated exposure control, adjustment of mA and/or KV based on patient s ize, or use of iterative reconstructive technique. FINDINGS: Lung Bases: Unremarkable. Liver: Fatty infiltration. Gallbladder/Bile Ducts: Status post cholecystectomy. Spleen: Normal. Pancreas: Normal. Adrenal Glands: Normal. Kidneys: Subtle foci of decreased enhancement in both kidneys without contour deforming mass. No hydr onephrosis seen. Peritoneal Cavity/Bowel: No bowel obstruction seen. No diverticulitis. No free air or free fluid. No lymphadenopathy. Appendix is not seen. No evidence of appendicitis. Pelvic Organs: Normal. The bladder and visualized pelvic organs are within normal limits. Vasculature: No aneurysms or other significant abnormality. Bones: Postoperative changes in the femurs bilaterally. Other: None. IMPRESSION: 1. Fatty liver. 2. Small subtle foci of decreased enhancement in both kidneys without contour deforming mass. Appeara nce is nonspecific. Focal bacterial nephritis would be a possibility. Malignancy is unlikely. Renal p rotocol MRI could be considered for follow-up. 3. No other acute inflammatory or obstructive process identified in the abdomen or pelvis. [facility] Referring Provider Line: [phone] SITE ID: [id number]
[2017-03-04] MEDS ORDERED: cefTRIAXone 1 GM VIAL IVP STA (02:18)
--- NOTE | 2017-03-04 02:24 | ED Physician Documentation ---
PD HPI FEMALE - Stated complaint Stated Complaint: FEMALE - Chief complaint Chief Complaint: Abd Pain - History obtained from History obtained from: Patient, Family - History of Present Illness Timing - onset: How many days ago (2) Timing - details: Gradual onset, Still present Associated symptoms: Abdominal pain, Hematuria Similar symptoms before: Has not had sx before Recently seen: Surgery - Additional information Additional information: Patient is a 37 year old female presenting to the emergency department for abdominal pain and hematuria. According to patient and patient had a liver biopsy done a few days prior. Patient subsequently developed hematuria and a fever today. Review of Systems Constitutional: reports: Fever. denies: Chills Eyes: denies: Loss of vision Ears: denies: Ear pain, Drainage/discharge Nose: denies: Epistaxis Throat: denies: Sore throat Cardiac: denies: Chest pain / pressure, Palpitations Respiratory: denies: Dyspnea, Cough, Wheezing GI: reports: Abdominal Pain, Nausea, Vomiting, Diarrhea. denies: Constipation : reports: Hematuria. denies: Dysuria, Frequency Musculoskeletal: denies: Neck pain, Back pain Neurologic: denies: Generalized weakness, Focal weakness, Numbness Psychiatric: denies: Suicidal, Homicidal Immunocompromised: reports: Immunocompromised PD PAST MEDICAL HISTORY - Past Medical History Past Medical History: Yes Neuro: Headache/migraine Endocrine/Autoimmune: Other GI: GERD, Crohn's disease Psych: Depression, Anxiety Musculoskeletal: Osteoporosis Derm: Other - Past Surgical History Past Surgical History: Yes General: Cholecystectomy, Appendectomy, Colonoscopy Ortho: Other - Present Medications Home Medications: Ambulatory Orders Medication Instructions Recorded Confirmed Sertraline HCl [Zoloft] 100 mg PO QPM 10/22/13 03/04/17 predniSONE [Deltasone] 5 mg PO DAILY 10/22/13 03/04/17 Alprazolam [Xanax] 1 mg PO QPM 10/24/14 03/04/17 Cholecalciferol (Vitamin D3) 5,000 units PO BID 10/24/14 03/04/17 [Vitamin D3] Famotidine [Pepcid] 20 mg PO BID 10/24/14 03/04/17 Folic Acid 1 mg PO DAILY 10/24/14 03/04/17 Gabapentin 1,800 mg PO QPM 10/24/14 03/04/17 Gabapentin 900 mg PO DAILY@0900,1400 10/24/14 03/04/17 Ondansetron Odt [Zofran Odt] 8 mg PO QID 10/24/14 03/04/17 Pantoprazole [Protonix] 40 mg PO DAILY 10/24/14 03/04/17 Adalimumab [Humira] 40 mg SQ Q7D 10/17/16 03/04/17 Azathioprine 250 mg PO DAILY 10/17/16 03/04/17 Sumatriptan 20 mg HAN ONCE PRN 10/17/16 03/04/17 oxyCODONE [Roxicodone] 10 mg PO Q6H 10/17/16 03/04/17 Budesonide [Budesonide EC] 9 mg PO DAILY 12/12/16 03/04/17 Diphenoxylate/Atropine [Lomotil] 2 each PO QID PRN 12/12/16 03/04/17 HYDROmorphone [Dilaudid] 2 mg PO Q6H 12/12/16 03/04/17 Alprazolam 0.5 mg PO 0800,1300,1800 12/13/16 03/04/17 Promethazine [Phenergan] 25 mg PO TID 12/13/16 03/04/17 Cholestyramine [Questran] 4 gm PO TID PRN #0 packet 12/18/16 03/04/17 Cefdinir 300 mg PO BID #10 capsule 03/04/17 Cefdinir 300 mg PO BID #20 capsule 03/04/17 - Allergies Allergies/Adverse Reactions: Allergies Allergy/AdvReac Type Severity Reaction Status Date / Time venom-honey bee Allergy Severe anaphylaxis Verified 03/04/17 00:17 [bee venom (honey bee)] latex Allergy Intermediate Edema Verified 03/04/17 00:17 - Social History Does the pt smoke?: No Smoking Status: Never smoker Does the pt drink ETOH?: No Does the pt have substance abuse?: No - Immunizations Immunizations are current?: Yes - POLST Patient has POLST: No POLST Status: Full Code PD ED PE NORMAL - Vitals Vital signs reviewed: Yes - General General: Alert and oriented X 3 - HEENT HEENT: Atraumatic, PERRL - Neck Neck: Supple, no meningeal sign - Cardiac Cardiac: RRR - Respiratory Respiratory: No respiratory distress - Derm Derm: Normal color, Warm and dry - Extremities Extremities: No deformity, Normal ROM s pain - Neuro Neuro: Alert and oriented X 3, No motor deficit, No sensory deficit - Psych Psych: Normal mood, Normal affect PD ED PE EXPANDED - General General: Alert, No acute distress - HEENT HEENT: Dry mucous membranes - Abdomen Abdomen: Tender to palpation, RUQ, Other (no surrounding erythema or signs of infection near the incision sites) Results - Vitals Vitals: Vital Signs - 24 hr 03/04/17 03/04/17 00:15 02:22 Temperature 37.1 C Heart Rate 87 66 Respiratory 20 20 Rate Blood Pressure 117/64 100/55 L O2 Saturation 96 95 Oxygen O2 Source Room air - Labs Labs: Laboratory Tests 03/04/17 03/04/17 03/04/17 00:10 00:14 00:30 WBC 7.6 RBC 4.26 Hgb 13.5 Hct 40.6 MCV 95.3 MCH 31.8 H MCHC 33.3 RDW 18.3 H Plt Count 267 MPV 10.3 Neut # 6.0 Lymph # 1.1 L [place] # 0.4 Eos # 0.1 Baso # 0.0 Absolute Nucleated RBC 0.01 Nucleated RBCs 0.1 PT INR APTT Sodium Potassium Chloride Carbon Dioxide Anion Gap BUN Creatinine Estimated GFR (MDRD) Glucose Lactic Acid Calcium Total Bilirubin AST ALT Alkaline Phosphatase Total Protein Albumin Globulin Albumin/Globulin Ratio Lipase Urine Color DARK YELLOW Urine Clarity HAZY Urine pH 6.0 Ur Specific [place] 1.020 1.020 Urine Protein NEGATIVE Urine Glucose (UA) NEGATIVE Urine Ketones TRACE Urine Occult Blood LARGE H Urine Nitrite NEGATIVE Urine Bilirubin NEGATIVE Urine Urobilinogen 0.2 (NORMAL) Ur Leukocyte Esterase NEGATIVE Urine RBC TNTC H Urine WBC 0-3 Ur Squamous Epith Cells MANY Squamous H Urine Crystals 26-50 Ca Oxalate Urine Bacteria None Seen Ur Microscopic Review INDICATED Urine Culture Comments NOT INDICATED Urine HCG, Qual NEGATIVE 03/04/17 03/04/17 03/04/17 00:30 00:30 00:30 WBC RBC Hgb Hct MCV MCH MCHC RDW Plt Count MPV Neut # Lymph # [place] # Eos # Baso # Absolute Nucleated RBC Nucleated RBCs PT 14.0 H INR 1.2 APTT 31.8 Sodium 140 Potassium 3.8 Chloride 105 Carbon Dioxide 26 Anion Gap 9.0 BUN 19 Creatinine 0.8 Estimated GFR (MDRD) 81 L Glucose 111 H Lactic Acid 1.1 Calcium 9.6 Total Bilirubin 0.8 AST 45 H ALT 61 H Alkaline Phosphatase 160 H Total Protein 7.5 Albumin 4.4 Globulin 3.1 Albumin/Globulin Ratio 1.4 Lipase 41 Urine Color Urine Clarity Urine pH Ur Specific [place] Urine Protein Urine Glucose (UA) Urine Ketones Urine Occult Blood Urine Nitrite Urine Bilirubin Urine Urobilinogen Ur Leukocyte Esterase Urine RBC Urine WBC Ur Squamous Epith Cells Urine Crystals Urine Bacteria Ur Microscopic Review Urine Culture Comments Urine HCG, Qual - Rads (name of study) ct abdomen/pelvis Radiology: Final report received, See rad report (fatty liver, possible nephritis, ) PD MEDICAL DECISION MAKING - ED course Complexity details: reviewed old records, reviewed results, re-evaluated patient , considered differential, d/w patient, d/w family ED course: Patient was seen and examined at bedside. IV access was gained and labs were drawn. urine was collected. Patient was treated with ns bolus and dilaudid. when patient's results came back patient was sent for imaging. when patient returned she was still in pain and was treated with dilaudid 1mg. Patient's CT revealed possible nephritis. that combined with home fever patient was started on rocephin. patient tolerated the treatment well. Patient required no further inpatient work up and was stable for discharge with outpatient follow up. Departure - Departure Disposition: 01 Home, Self Care Clinical Impression: Nephritis Condition: Good Instructions: ED Hematuria Follow-Up: Khadar Oconnor MD [Primary Care Provider] - Prescriptions: Cefdinir 300 mg PO BID #10 capsule Cefdinir 300 mg PO BID #20 capsule Comments: Your diagnostics today showed possible nephritis. You had a first dose of antibiotics today and will be on them for the next 5 days. You should increase your fluid intake and take your entire course of antibiotics. You should follow up with your pmd if your symptoms persist. You may return to the emergency department at any time for new, worsening or uncontrollable symptoms.
[2017-03-04] MEDS ORDERED: cefTRIAXone 1 GM VIAL ONE (02:28)
[2017-03-04 03:42] VITALS: BP 102/60
== END 2017-03-04 03:43 | disposition home or self-care (01) ==
LOC: ED 00:12
DX: N05.9 Unspecified nephritic syndrome with unspecified morphologic changes (principal); K21.9 Gastro-esophageal reflux disease without esophagitis; K50.90 Crohn's disease, unspecified, without complications; M81.0 Age-related osteoporosis without current pathological fracture
CPT/HCPCS: 36415; 74177; 80053; 81001; 81025; 83605; 83690; 85025; 85610; 85730; 87040; 96374; 96375; 96376; 99283; 99284; J1170; Q9967; 81003; 87086

== ENCOUNTER 2017-06-18 12:30 | Outpatient (CLI) | payer OTHER ==
[2017-06-18 13:16] LABS: BASOPHILS # (AUTO) 0.1 10^3/uL (0.0-0.1); BASOPHILS % (AUTO) 0.7 %; EOSINOPHILS # (AUTO) 0.1 10^3/uL (0.0-0.7); EOSINOPHILS % (AUTO) 1.2 %; HCT - HEMATOCRIT 37.1 % (37.0-47.0); HGB - HEMOGLOBIN 12.8 g/dL (12.0-16.0); LYMPHOCYTES # (AUTO) 3.6 10^3/uL (1.5-3.5); LYMPHOCYTES % (AUTO) 36.8 %; MEAN CORPUSCULAR HEMOGLOBIN 33.9 pg (27.0-31.0); MEAN CORPUSCULAR HGB CONC 34.5 g/dL (32.0-36.0); MEAN CORPUSCULAR VOLUME 98.2 fL (81.0-99.0); MEAN PLATELET VOLUME 9.1 fL (7.9-10.8); MONOCYTES # (AUTO) 0.9 10^3/uL (0.0-1.0); MONOCYTES % (AUTO) 9.1 %; NEUTROPHILS # (AUTO) 5.1 10^3/uL (1.5-6.6); NEUTROPHILS % (AUTO) 52.2 %; NUCLEATED RED BLOOD CELLS AUTO 0.1 /100WBC; RED BLOOD COUNT 3.78 10^6/uL (4.20-5.40); RED CELL DISTRIBUTION WIDTH 16.2 % (12.0-15.0); UNCORRECTED WHITE BLOOD COUNT 9.7 x10^3/uL; WHITE BLOOD COUNT 9.7 x10^3/uL (4.8-10.8)
[2017-06-18 13:22] LABS: INR 1.1 (0.8-1.2); PT - PROTHROMBIN TIME 11.9 secs (9.9-12.6)
[2017-06-18 13:30] LABS: ALBUMIN/GLOBULIN RATIO 1.6 (1.0-2.2); BILIRUBIN,TOTAL 0.6 mg/dL (0.2-1.0); CALCIUM 9.4 mg/dL (8.5-10.3); CREATININE 0.7 mg/dL (0.4-1.0); POTASSIUM 3.8 mmol/L (3.5-5.0); TOTAL PROTEIN 7.2 g/dL (6.7-8.2)
== END 2017-06-18 12:31 | disposition home or self-care (01) ==
LOC: LAB 12:30
DX: K83.0 Cholangitis (principal)
CPT/HCPCS: 36415; 80053; 85025; 85610; 86301

== ENCOUNTER 2017-11-14 21:11 | Inpatient (IN) | payer OTHER ==
--- NOTE | 2017-11-14 21:16 | ED Physician Documentation ---
PD HPI ABD PAIN - Stated complaint Stated Complaint: ABD PX - Chief complaint Chief Complaint: Abd Pain - History obtained from History obtained from: Patient, Family (spouse (in ED at bedside)) - History of Present Illness Timing - onset: How many weeks ago (6) Timing - details: Gradual onset Pain level now: 6 Quality: Pain Location: RLQ Improved by: Other (no ameliorating factors) Worsened by: Eating Associated symptoms: Nausea, Vomiting Similar symptoms before: Other (similar to previous episodes of SBO, ileus) Recently seen: Not recently seen - Additional information Additional information: nausea, vomiting x 6 weeks. Also has diarrhea, although this is chronic. She had been able to control her symptoms with prescribed medications (includes zofran, phenergan, and scopolamine) but having difficulty tolerating PO last few days and today has been unable to tolerate PO including her usual medications including pain medication. PMH includes SBO and ileus which has required hospitalizations and TPN Review of Systems Constitutional: reports: Chills, Sweats Cardiac: reports: Reviewed and negative Respiratory: reports: Reviewed and negative GI: reports: Abdominal Pain, Nausea, Vomiting, Diarrhea PD PAST MEDICAL HISTORY - Past Medical History Endocrine/Autoimmune: Other GI: GERD, Crohn's disease Psych: Depression, Anxiety Musculoskeletal: Osteoporosis Derm: Other - Past Surgical History Past Surgical History: Yes General: Cholecystectomy, Appendectomy, Colonoscopy Ortho: Other - Present Medications Home Medications: Ambulatory Orders Medication Instructions Recorded Confirmed Sertraline HCl [Zoloft] 100 mg PO QPM 10/22/13 03/04/17 predniSONE [Deltasone] 4 mg PO DAILY 10/22/13 03/04/17 Alprazolam [Xanax] 1 mg PO QPM 10/24/14 03/04/17 Famotidine [Pepcid] 20 mg PO BID 10/24/14 03/04/17 Folic Acid 1 mg PO DAILY 10/24/14 03/04/17 Gabapentin 1,800 mg PO QPM 10/24/14 03/04/17 Gabapentin 600 mg PO TID 10/24/14 03/04/17 Ondansetron Odt [Zofran Odt] 8 mg PO QID 10/24/14 03/04/17 Pantoprazole [Protonix] 40 mg PO DAILY 10/24/14 03/04/17 Adalimumab [Humira] 40 mg SQ Q7D 10/17/16 03/04/17 Azathioprine 250 mg PO DAILY 10/17/16 03/04/17 SUMAtriptan [Sumatriptan] 20 mg HAN ONCE PRN 10/17/16 03/04/17 oxyCODONE [Roxicodone] 10 mg PO Q6H 10/17/16 03/04/17 Budesonide [Budesonide EC] 9 mg PO DAILY 12/12/16 03/04/17 Diphenoxylate/Atropine [Lomotil] 2 each PO QID PRN 12/12/16 03/04/17 HYDROmorphone [Dilaudid] 2 mg PO Q6H 12/12/16 03/04/17 Alprazolam 0.5 mg PO QID 12/13/16 03/04/17 Promethazine [Phenergan] 25 mg PO TID 12/13/16 03/04/17 Epinephrine [Epipen 2-Jonn] 11/14/17 Scopolamine 1 each TD Q72H 11/14/17 11/14/17 Ursodiol 600 mg PO BID 11/14/17 11/14/17 - Allergies Allergies/Adverse Reactions: Allergies Allergy/AdvReac Type Severity Reaction Status Date / Time venom-honey bee Allergy Severe anaphylaxis Verified 11/14/17 21:16 [bee venom (honey bee)] latex Allergy Intermediate Edema Verified 11/14/17 21:16 - Social History Does the pt smoke?: No Smoking Status: Never smoker Does the pt drink ETOH?: No Does the pt have substance abuse?: No - Immunizations Immunizations are current?: Yes - POLST Patient has POLST: No POLST Status: Full Code PD ED PE NORMAL - Vitals Vital signs reviewed: Yes - General General: Alert and oriented X 3, Well developed/nourished - HEENT HEENT: Other (dry mucous membranes) - Cardiac Cardiac: RRR, No murmur - Respiratory Respiratory: No respiratory distress, Clear bilaterally - Abdomen Abdomen: Soft, Non distended, Other (mild/moderate RLQ tenderness without rebound or guarding) - Back Back: No CVA TTP - Derm Derm: Normal color, Warm and dry Results - Vitals Vitals: Vital Signs - 24 hr 11/14/17 11/14/17 11/14/17 21:13 22:52 23:05 Temperature 36.0 C L 36.6 C Heart Rate 92 65 71 Respiratory 16 16 16 Rate Blood Pressure 137/62 H 124/78 131/84 H O2 Saturation 95 95 97 11/14/17 23:38 Temperature Heart Rate 67 Respiratory 16 Rate Blood Pressure 135/78 H O2 Saturation 95 Oxygen O2 Source Room air - Labs Labs: Laboratory Tests 11/14/17 11/14/17 11/14/17 22:02 22:02 22:02 WBC 9.0 RBC 4.20 Hgb 14.3 Hct 42.5 MCV 101.3 H MCH 34.0 H MCHC 33.6 RDW 14.4 Plt Count 201 MPV 9.3 Neut # 6.6 Lymph # 1.7 [place] # 0.6 Eos # 0.0 Baso # 0.1 Absolute Nucleated RBC 0.01 Nucleated RBC % 0.1 Sodium 139 Potassium 2.8 L Chloride 103 Carbon Dioxide 25 Anion Gap 11.0 BUN 7 Creatinine 0.9 Estimated GFR (MDRD) 70 L Glucose 100 Calcium 9.5 Phosphorus 3.1 Magnesium 1.9 Total Bilirubin 1.3 H AST 56 H ALT 49 Alkaline Phosphatase 92 C-Reactive Protein < 1.0 Total Protein 8.3 H Albumin 4.9 Globulin 3.4 Albumin/Globulin Ratio 1.4 Lipase 34 - Rads (name of study) CT A/P Radiology: Prelim report reviewed, See rad report PD MEDICAL DECISION MAKING - ED course Complexity details: reviewed old records, reviewed results, re-evaluated patient , considered differential, d/w patient, d/w family Departure - Departure Disposition: 66 [facility] DC/Xfer Clinical Impression: Colitis, Hypokalemia Intractable nausea and vomiting Qualifiers: Vomiting type: unspecified Qualified Code(s): R11.2 - Nausea with vomiting, unspecified Condition: Stable Discharge Date/Time: 11/15/17 01:05
[2017-11-14] MEDS ORDERED: SODIUM CHLORIDE 0.9% 1,000 ML IV STA (21:35)
[2017-11-14] MEDS ORDERED: fentaNYL 100 MCG/2 ML VIAL IVP STA ×2 (21:36→22:46)
[2017-11-14] MEDS ORDERED: PROMETHAZINE INJ 12.5 MG in SODIUM CHLORIDE 0.9% 50 ML IV STA (21:36)
[2017-11-14 22:07] LABS: BASOPHILS # (AUTO) 0.1 10^3/uL (0.0-0.1); BASOPHILS % (AUTO) 0.6 %; EOSINOPHILS % (AUTO) 0.5 %; HGB - HEMOGLOBIN 14.3 g/dL (12.0-16.0); LYMPHOCYTES # (AUTO) 1.7 10^3/uL (1.5-3.5); MEAN CORPUSCULAR HGB CONC 33.6 g/dL (32.0-36.0); MEAN CORPUSCULAR VOLUME 101.3 fL (81.0-99.0); MEAN PLATELET VOLUME 9.3 fL (7.9-10.8); MONOCYTES # (AUTO) 0.6 10^3/uL (0.0-1.0); MONOCYTES % (AUTO) 6.7 %; NEUTROPHILS # (AUTO) 6.6 10^3/uL (1.5-6.6); NEUTROPHILS % (AUTO) 73.2 %; PLT - PLATELET COUNT 201 10^3/uL (130-450); RED CELL DISTRIBUTION WIDTH 14.4 % (12.0-15.0)
[2017-11-14 22:19] LABS: ALBUMIN 4.9 g/dL (3.2-5.5); ALBUMIN/GLOBULIN RATIO 1.4 (1.0-2.2); BILIRUBIN,TOTAL 1.3 mg/dL (0.2-1.0); CALCIUM 9.5 mg/dL (8.5-10.3); CREATININE 0.9 mg/dL (0.4-1.0); TOTAL PROTEIN 8.3 g/dL (6.7-8.2)
[2017-11-14] MEDS ORDERED: IOPAMIDOL-300 100 ML VIAL ONE (22:27)
[2017-11-14] MEDS ORDERED: IOPAMIDOL-300 50 ML VIAL ONE (22:28)
[2017-11-14] MEDS ORDERED: IOPAMIDOL-300 50 ML VIAL PO ONE (23:40)
[2017-11-14] MEDS ORDERED: IOPAMIDOL-300 100 ML VIAL IVP ONE (23:40)
--- NOTE | 2017-11-15 | CT Preliminary Report ---
Exam: CT ABDOMEN/PELVIS W/ IMPRESSION: 1. Colitis involving the distal one third of the transverse colon, descending colon, and sigmoid colo n. Differential diagnosis includes infectious or ischemic colitis. With regards to the lateral, there is no celiac or SMA stenosis or occlusion. RUTHIE is also widely patent. 2. Status post cholecystectomy without pathologic biliary ductal dilation. 3. Prior appendectomy. 4. Severe hepatic steatosis and at least moderate hepatomegaly. [facility] SITE ID: [id number]
--- NOTE | 2017-11-15 00:07 | CT Report ---
EXAM: CT ABDOMEN AND PELVIS EXAM DATE: 11/14/2017 11:42 PM. CLINICAL HISTORY: Abdominal pain. COMPARISONS: 03/04/2017. TECHNIQUE: Routine helical CT imaging was performed through the abdomen and pelvis. IV contrast: 100 mL Isovue 300. Enteric contrast: No. Reconstructions: Coronal and sagittal. In accordance with CT protocol optimization, one or more of the following dose reduction techniques w ere utilized for this exam: automated exposure control, adjustment of mA and/or KV based on patient s ize, or use of iterative reconstructive technique. FINDINGS: ABDOMEN: Liver: Severe hepatic steatosis. Stomach/Distal Esophagus: No significant abnormality. Gallbladder: Prior cholecystectomy. Bile Ducts: No significant abnormality. Pancreas: No significant abnormality. Spleen: No significant abnormality. Kidneys: No suspicious solid appearing lesion. No hydronephrosis. Adrenals: No significant abnormality. Bowel: There is fluid throughout the colon. There is wall thickening of the colon involving the dista l one-third of the transverse colon as well as the descending colon and sigmoid colon. Pericolonic st randing. No small bowel obstruction. Appendix: Prior appendectomy. Lymph Nodes: No pathologically enlarged nodes. Vasculature: Normal caliber aorta. There is no significant aortic or branch vessel atherosclerosis or stenosis demonstrated. Fluid: No significant free fluid. Abdominal Wall: There is a small fat-containing umbilical hernia. Other: No significant abnormality. PELVIS: Uterus and Ovaries: No significant abnormality. Bladder: No significant abnormality. Lymph Nodes: No pathologically enlarged nodes. Fluid: No significant free fluid. Other: None. BONES: No suspicious bony lesions. Bilateral femoral intramedullary rods. LOWER CHEST: No significant consolidation or effusion. IMPRESSION: 1. Colitis involving the distal one-third of the transverse colon, descending colon, and sigmoid colo n. Differential diagnosis includes infectious or ischemic colitis. With regards to the latter, there is no celiac or SMA stenosis or occlusion. RUTHIE is also widely patent. 2. Status post cholecystectomy without pathologic biliary ductal dilation. 3. Prior appendectomy. 4. Severe hepatic steatosis and at least moderate hepatomegaly. [facility] Referring Provider Line: [phone] SITE ID: [id number]
[2017-11-15] MEDS ORDERED: SODIUM CHLORIDE 0.9% 1,000 ML IV STA ×2 (00:11→00:13)
[2017-11-15] MEDS ORDERED: SUMAtriptan 6 MG/0.5 ML VIAL SUBQ STA (00:12)
[2017-11-15] MEDS ORDERED: PROMETHAZINE INJ 12.5 MG in SODIUM CHLORIDE 0.9% 50 ML IV STA (00:13)
[2017-11-15] MEDS ORDERED: fentaNYL 100 MCG/2 ML VIAL IVP STA (00:13)
[2017-11-15] MEDS ORDERED: SUMATRIPTAN 20 MG NAS PRN (00:28)
[2017-11-15] MEDS ORDERED: PROMETHAZINE 25 MG/1 ML VIAL IM PRN (00:33)
[2017-11-15] MEDS ORDERED: methylPREDNISolone SUCCINATE 40 MG/ML VIAL IVP STA (00:33)
[2017-11-15] MEDS ORDERED: POTASSIUM CHLOR 10 MEQ/100 ML 10 MEQ/100 ML BAG IV STA (00:45)
--- NOTE | 2017-11-15 00:48 | ED Physician Documentation ---
ED Addendum - Addendum Addendum: 11/15/17 00:47 Patient is difficult for IV Access: I personally placed a 20g IV after chloraprep in a deep right antecubital vein using real time ultrasound guidance which flushed and annette well.
[2017-11-15 01:14] LABS: MAGNESIUM 1.9 mg/dL (1.7-2.8); PHOSPHORUS 3.1 mg/dL (2.5-4.6)
[2017-11-15 01:15] LABS: CRP - C-REACTIVE PROTEIN < 1.0 mg/dL (0-1.0)
--- NOTE | 2017-11-15 01:35 | HISTORY & PHYSICAL EXAMINATION ---
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 The patient states that she has been experiencing symptoms of abdominal pain, bloody diarrhea and nausea with vomiting for the last 6 weeks. She states that initially her symptoms started with increasing diarrhea up to 15 times a day and vomiting. She states that initially she spoke with her pastry supervisor who thought it was likely the noro virus and gave her a course of oral ciprofloxacin. The patient states that with the Cipro her symptoms seem to stabilize but never got entirely better. She states that soon as she stopped the course of Cipro the symptoms got worse. She states at that point she had increased her dose of steroids and tapered down. She states again she had some stabilization of symptoms but never complete improvement. The patient states that over the last 6 weeks she has had progressively decreased oral intake. She states that initially she was able to keep down liquids and about 75% of her meals. She states that this is now progressed to a point where over the last few days she can only keep down a few sips of water. She states that her nausea has progressed to a point where even with water she will vomit. She states that she has continued to try to take her oral meds however recently over the last couple of days she has barely been able to keep those down. She states that her abdominal pain has continued to worsen and due to the fact that she is not able to keep her oral pain pills down her pain has become uncontrolled. She also states that her diarrhea has decreased she believes this may be because she is not getting anything in orally. She states that when she does have bowel movements they are watery or bloody. She denies having had any fevers or chills. She does state that she has become increasingly weak and barely has the energy now to get out of bed. She has been increasing her use of oral pain medication and over the last week she is known that she should be coming into the emergency department and likely be hospitalized but she has put it off because she was hoping she could deal with that at home. The patient did speak with her pastry supervisor earlier this week to see if he could set up a PICC line and TPN as an outpatient however he suggested to go to the emergency department as this would be difficult for him to do. The patient states that her last CT scan of her abdomen was in March 2017. She states that her last colonoscopy was in August 2017. She states on that colonoscopy she was found to have some new stricture but otherwise had normal findings of ulceration and inflammation which were at her baseline. The patient otherwise denies any new headaches although she does have chronic migraines, blurred vision, runny nose, sore throat, nasal congestion, difficulty swallowing, chest pain, cough, shortness of air, orthopnea, PND, increased lower extremity swelling, hemoptysis, palpitations, urinary urgency, urinary frequency, dysuria, joint pain, muscle aches, joint swelling, back pain , neck stiffness, skin changes, hair loss, night sweats, fevers, chills, polyuria, polydipsia or any focal neurologic deficits. On presentation to the emergency department the patient was afebrile, heart rate was 92 and she was normotensive with no respiratory distress. The patient underwent routine lab work which showed no leukocytosis, no anemia and normal electrolytes aside from a potassium of 2.8. The patient's bilirubin was slightly elevated at 1.3 and her AST was elevated at 56 which is only slightly above her baseline. The patient required several doses of IV pain medication in the emergency department as her abdominal pain was poorly controlled. She also required several doses of IV antiemetics as she continued to feel nauseated. The patient did have tenderness on examination specifically in the right upper and lower quadrants. The patient underwent a CT of her abdomen and pelvis which showed colitis involving the distal one third of the transverse colon, descending colon and sigmoid colon. The differential diagnosis includes infectious or ischemic colitis. Given this finding and the fact the patient is unable to tolerate anything orally at this point the patient was admitted to the medical [facility]aya for IV antibiotics, IV fluids, IV steroids and nutritional support. History - Past Medical History Endocrine/Autoimmune: reports: Other GI: reports: GERD, Crohn's disease, Other (Primary biliary cholangitis) Psych: reports: Depression, Anxiety Musculoskeletal: reports: Osteoporosis Derm: reports: Other MRSA Hx?: No - Past Surgical History General: reports: Cholecystectomy, Appendectomy, Colonoscopy Ortho: reports: Other - Family & Social History Family History: Mother: Alive and Well, Alcoholism, Father: Alive and Well, Alcoholism, Hypertension Family History Comment/Other: Mom has Crohn's disease Living arrangement: At home Living Situation: With spouse/s.o. Social History Notes: She lives in [place] with her . She met her at the age of 18 they at the age of 19. Normally the patient is completely independent with regards to her activities of daily living. Patient has been hospitalized several times for Crohn's colitis flares requiring IV medications and TPN in the past. The patient did smoke she started the age of 18 and smoked from the age of 18 to the age of 20 then began around the age of [age] and again from [age] and then once more from [age]. She quit in 2013. She never smoked more than half a pack a day. She denies any alcohol or drug use. She has no children. - Substance History Use: Uses substance without health or social issues: NONE - POLST Patient has POLST: No POLST Status: Full Code Meds/Allgy - Home Medications Home Medications: Ambulatory Orders Medication Instructions Recorded Confirmed Sertraline HCl [Zoloft] 100 mg PO QPM 10/22/13 03/04/17 predniSONE [Deltasone] 4 mg PO DAILY 10/22/13 03/04/17 Alprazolam [Xanax] 1 mg PO QPM 10/24/14 03/04/17 Famotidine [Pepcid] 20 mg PO BID 10/24/14 03/04/17 Folic Acid 1 mg PO DAILY 10/24/14 03/04/17 Gabapentin 1,800 mg PO QPM 10/24/14 03/04/17 Gabapentin 600 mg PO TID 10/24/14 03/04/17 Ondansetron Odt [Zofran Odt] 8 mg PO QID 10/24/14 03/04/17 Pantoprazole [Protonix] 40 mg PO DAILY 10/24/14 03/04/17 Adalimumab [Humira] 40 mg SQ Q7D 10/17/16 03/04/17 Azathioprine 250 mg PO DAILY 10/17/16 03/04/17 SUMAtriptan [Sumatriptan] 20 mg HAN ONCE PRN 10/17/16 03/04/17 oxyCODONE [Roxicodone] 10 mg PO Q6H 10/17/16 03/04/17 Budesonide [Budesonide EC] 9 mg PO DAILY 12/12/16 03/04/17 Diphenoxylate/Atropine [Lomotil] 2 each PO QID PRN 12/12/16 03/04/17 HYDROmorphone [Dilaudid] 2 mg PO Q6H 12/12/16 03/04/17 Alprazolam 0.5 mg PO QID 12/13/16 03/04/17 Promethazine [Phenergan] 25 mg PO TID 12/13/16 03/04/17 Epinephrine [Epipen 2-Jonn] 11/14/17 Scopolamine 1 each TD Q72H 11/14/17 11/14/17 Ursodiol 600 mg PO BID 11/14/17 11/14/17 - Allergies Allergies/Adverse Reactions: Allergies Allergy/AdvReac Type Severity Reaction Status Date / Time venom-honey bee Allergy Severe anaphylaxis Verified 11/14/17 21:16 [bee venom (honey bee)] latex Allergy Intermediate Edema Verified 11/14/17 21:16 Review of Systems - Other Findings Other Findings: A comprehensive review of systems was performed the pertinent positives and negatives are stated above in the HPI and the remainder of the review of systems is negative. Exam - Vital Signs Vital Signs: Vital Signs x48h Temp Pulse Resp BP Pulse Ox 11/15/17 00:44 89 16 118/56 L 95 11/14/17 23:38 67 16 135/78 H 95 11/14/17 23:05 36.6 C 71 16 131/84 H 97 11/14/17 22:52 65 16 124/78 95 11/14/17 21:13 36.0 C L 92 16 137/62 H 95 - Physical Exam General Appearance: positive: Alert, Mild distress (Abdominal pain), Other ( Patient has cushingoid features such as parker face, truncal obesity, [place] hump ) Eyes Bilateral: positive: Normal inspection, PERRL, EOMI, No lid inflammation, Conjunctivae nml, No scleral icterus ENT: positive: ENT inspection nml, Pharynx nml, Dry mucous membranes. negative : Purulent nasal drainage, Pharyngeal erythema, Oral lesions Neck: positive: Nml inspection, Thyroid nml, No JVD, Trachea midline. negative : Thyromegaly, Lymphadenopathy (R), Lymphadenopathy (L), Carotid bruit, Tracheal deviation Respiratory: positive: Chest non-tender, No respiratory distress, Breath sounds nml. negative: Wheezes, Rales, Rhonchi Cardiovascular: positive: Regular rate & rhythm, No murmur, No gallop Peripheral Pulses: positive: 2+ Abdomen: positive: Tenderness (Mostly right lower quadrant tenderness, no rebound, no guarding, no peritoneal signs, mild right upper quadrant tenderness) , Abnml bowel sounds (Decreased). negative: Guarding, Rebound, Hepatomegaly Back: positive: Nml inspection. negative: CVA tenderness (R), CVA tenderness (L ) Skin: positive: Warm, Other (Flushed appearing face). negative: Cyanosis, Diaphoresis, Pallor Extremities: positive: Non-tender, Full ROM, Nml appearance, No pedal edema Neurologic/Psychiatric: positive: Oriented x3, CN's nml (2-12), Motor nml, Sensation nml, Mood/affect nml Conclusion/Plan - Problem List (1) Infectious colitis Conclusion/Plan: Patient presented with progressively worsening abdominal pain, nausea and diarrhea over the last 6 weeks. Patient has gotten to a point where she is not able to keep even water down. The patient's pain is uncontrolled. On presentation however she does not have a leukocytosis. She does not have any fevers. The patient's CT scan of the abdomen is consistent with colitis likely infectious colitis. The patient did get a short course of oral ciprofloxacin about 5 weeks ago with which she did have stabilization of her symptoms but admits that she was not always able to keep the antibiotics down. It appears the patient likely has an infectious colitis that has exacerbated her Crohn's disease. Given the patient is immunosuppressed secondary to her Crohn's and immunosuppressive medication we will be aggressive with treatment of infectious colitis. Plan: N.p.o. IV fluids IV Cipro and Flagyl Stool cultures Monitor closely (2) Crohn's colitis Conclusion/Plan: Patient appears to have exacerbation of her Crohn's disease in the setting of an infectious colitis. The patient has been having increasing abdominal pain, bloody diarrhea and intractable nausea and vomiting. Patient has been unable to get adequate oral intake and has become increasingly dehydrated. The patient 's pain is uncontrolled that she is unable to keep down her pain medications. Plan: N.p.o. 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 It is progressed to the point where the patient cannot keep down even water. Prior to that she was keeping down about 25% of her food. This is likely secondary to her Crohn's exacerbation and infectious colitis. For now while the patient is being treated for her Crohn's and infectious colitis we need to ensure that she gets adequate nutrition. Plan: PICC line Nutrition consult for TPN Check pre-albumin (4) Hypokalemia Conclusion/Plan: On presentation patient's potassium is decreased at 2.8 likely secondary to intractable nausea vomiting. We will replace patient's potassium IV with potassium rider and with IV fluids Monitor potassium (5) Depression Conclusion/Plan: Patient has a history of depression and is on antidepressants however she is going to be strict n.p.o. while she is hospitalized and will not be receiving her antidepressants. We will continue to monitor but currently she appears to be stable. Qualifiers: Depression Type: unspecified Qualified Code(s): F32.9 - Major depressive disorder, single episode, unspecified (6) Prophylactic use of low molecular weight heparin for venous thromboembolism Conclusion/Plan: Patient will be placed on Lovenox while she is hospitalized for DVT prophylaxis. - Lab Results Lab results reviewed: Yes Fish Bones: 11/14/17 22:02 11/14/17 22:02 Other Lab Results: Laboratory Results WBC 9.0 x10^3/uL (4.8-10.8) 11/14/17 22:02 RBC 4.20 10^6/uL (4.20-5.40) 11/14/17 22:02 Hgb 14.3 g/dL (12.0-16.0) 11/14/17 22:02 Hct 42.5 % (37.0-47.0) 11/14/17 22:02 MCV 101.3 fL (81.0-99.0) H 11/14/17 22:02 MCH 34.0 pg (27.0-31.0) H 11/14/17 22:02 MCHC 33.6 g/dL (32.0-36.0) 11/14/17 22:02 RDW 14.4 % (12.0-15.0) 11/14/17 22:02 Plt Count 201 10^3/uL (130-450) 11/14/17 22:02 MPV 9.3 fL (7.9-10.8) 11/14/17 22:02 Neut # 6.6 10^3/uL (1.5-6.6) 11/14/17 22: Lymph # 1.7 10^3/uL (1.5-3.5) 11/14/17 22:02 Rhea # 0.6 10^3/uL (0.0-1.0) 11/14/17 22:02 Eos # 0.0 10^3/uL (0.0-0.7) 11/14/17 22: Baso # 0.1 10^3/uL (0.0-0.1) 11/14/17 22:02 Absolute Nucleated RBC 0.01 x10^3/uL 11/14/17 22:02 Nucleated RBC % 0.1 /100WBC 11/14/17 22:02 Sodium 139 mmol/L (135-145) 11/14/17 22:02 Potassium 2.8 mmol/L (3.5-5.0) L 11/14/17 22:02 Chloride 103 mmol/L (101-111) 11/14/17 22:02 Carbon Dioxide 25 mmol/L (21-32) 11/14/17 22:02 Anion Gap 11.0 (6-13) 11/14/17 22:02 BUN 7 mg/dL (6-20) 11/14/17 22:02 Creatinine 0.9 mg/dL (0.4-1.0) 11/14/17 22:02 Estimated GFR (MDRD) 70 (>89) L 11/14/17 22:02 Glucose 100 mg/dL (70-100) 11/14/17 22:02 Calcium 9.5 mg/dL (8.5-10.3) 11/14/17 22:02 Phosphorus 3.1 mg/dL (2.5-4.6) 11/14/17 22:02 Magnesium 1.9 mg/dL (1.7-2.8) 11/14/17 22:02 Total Bilirubin 1.3 mg/dL (0.2-1.0) H 11/14/17 22:02 AST 56 IU/L (10-42) H 11/14/17 22:02 ALT 49 IU/L (10-60) 11/14/17 22:02 Alkaline Phosphatase 92 IU/L (42-121) 11/14/17 22:02 C-Reactive Protein < 1.0 mg/dL (0-1.0) 11/14/17 22:02 Total Protein 8.3 g/dL (6.7-8.2) H 11/14/17 22:02 Albumin 4.9 g/dL (3.2-5.5) 11/14/17 22:02 Globulin 3.4 g/dL (2.1-4.2) 11/14/17 22:02 Albumin/Globulin Ratio 1.4 (1.0-2.2) 11/14/17 22:02 Lipase 34 U/L (22-51) 11/14/17 22:02 - Diagnostic Imaging Results Diagnostic Imaging Results: positive: Final report reviewed Diagnostic Imaging Results Comments: CT abdomen/pelvis Impression: 1. Colitis involving the distal one third of the transverse colon, descending colon and sigmoid colon. Differential diagnosis includes infectious or ischemic colitis. With regards to the latter, there is no celiac or SMA stenosis or occlusion. RUTHIE is also widely patent. 2. Status post cholecystectomy without pathologic biliary ductal dilation. 3. Prior appendectomy. 4. Severe hepatic steatosis and at least moderate hepatomegaly. Core Measures - Anticipated LOS I expect patient to be DC'd or transferred within 96 hours.: Yes - DVT/VTE - Prophylaxis VTE/DVT Prophylaxis med ordered at admit?: Yes
[2017-11-15] MEDS: MORPHINE PCA 50 MG IV PRN ×2 (02:05→17:10)
[2017-11-15] MEDS: SODIUM CHLORIDE FLUSH 0.9% 10 ML SYRINGE IVP SCH ×3 (02:35→20:41)
[2017-11-15] MEDS: SCOPOLAMINE PATCH TOP SCH (02:49)
[2017-11-15] MEDS: metroNIDAZOLE 500 MG/100 ML 500 MG/100 ML BAG IV SCH ×3 (03:03→18:13)
[2017-11-15] MEDS: NS W/20 MEQ KCL 1,000 ML IV SCH ×2 (03:09→18:07)
[2017-11-15] MEDS: PROCHLORPERAZINE 10 MG/2 ML VIAL IVP PRN ×3 (04:36→22:40)
[2017-11-15] MEDS: CIPROFLOXACIN 400 MG/200 ML 200 ML IV SCH ×2 (04:36→14:08)
[2017-11-15] MEDS: LORazepam 2 MG/ML VIAL IVP PRN (04:37)
[2017-11-15] MEDS: PANTOPRAZOLE 40 MG VIAL IVP SCH (06:06)
[2017-11-15] MEDS: SODIUM CHLORIDE FLUSH 0.9% 10 ML SYRINGE IVP PRN (06:06)
[2017-11-15 06:20] LABS: BASOPHILS % (AUTO) 0.4 %; EOSINOPHILS % (AUTO) 0.2 %; HGB - HEMOGLOBIN 13.7 g/dL (12.0-16.0); LYMPHOCYTES # (AUTO) 0.6 10^3/uL (1.5-3.5); MEAN CORPUSCULAR HEMOGLOBIN 34.2 pg (27.0-31.0); MEAN CORPUSCULAR HGB CONC 33.2 g/dL (32.0-36.0); MEAN CORPUSCULAR VOLUME 102.9 fL (81.0-99.0); MEAN PLATELET VOLUME 9.3 fL (7.9-10.8); MONOCYTES # (AUTO) 0.1 10^3/uL (0.0-1.0); MONOCYTES % (AUTO) 2.1 %; NEUTROPHILS # (AUTO) 5.1 10^3/uL (1.5-6.6); NEUTROPHILS % (AUTO) 86.3 %; PLT - PLATELET COUNT 151 10^3/uL (130-450); RED BLOOD COUNT 4.01 10^6/uL (4.20-5.40); RED CELL DISTRIBUTION WIDTH 14.4 % (12.0-15.0); WHITE BLOOD COUNT 5.9 x10^3/uL (4.8-10.8)
[2017-11-15 06:33] LABS: ALBUMIN 4.3 g/dL (3.2-5.5); ALBUMIN/GLOBULIN RATIO 1.4 (1.0-2.2); ALKALINE PHOSPHATASE 83 IU/L (42-121); ALT ALANINE AMINOTRANSFERASE 43 IU/L (10-60); AST ASPARTATE AMINOTRANSFERASE 42 IU/L (10-42); BILIRUBIN,TOTAL 1.1 mg/dL (0.2-1.0); BUN - BLOOD UREA NITROGEN 7 mg/dL (6-20); CALCIUM 8.5 mg/dL (8.5-10.3); CARBON DIOXIDE - CO2 22 mmol/L (21-32); CHLORIDE 107 mmol/L (101-111); CREATININE 0.6 mg/dL (0.4-1.0); GFR - MDRD 112 (>89); GLUCOSE 108 mg/dL (70-100); MAGNESIUM 1.8 mg/dL (1.7-2.8); PHOSPHORUS 2.9 mg/dL (2.5-4.6); SODIUM 139 mmol/L (135-145); TOTAL PROTEIN 7.3 g/dL (6.7-8.2)
[2017-11-15 06:34] LABS: CRP - C-REACTIVE PROTEIN < 1.0 mg/dL (0-1.0)
[2017-11-15] MEDS: azaTHIOprine 50 MG TABLET PO SCH (09:46)
[2017-11-15] MEDS: methylPREDNISolone SUCCINATE 40 MG/ML VIAL IVP SCH (10:44)
[2017-11-15] MEDS: POLYETHYLENE GLYCOL 3350 17 GM PACKET PO SCH (10:45)
[2017-11-15] MEDS: ENOXAPARIN 40 MG/0.4 ML SYRINGE SUBQ SCH (10:48)
--- NOTE | 2017-11-15 16:27 | XRAY Preliminary Report ---
Exam: XR CHEST FOR LINE PLACEMENT IMPRESSION: New left PICC line tip in the inferior third SVC. [facility] SITE ID: [id number]
--- NOTE | 2017-11-15 16:34 | XRAY Report ---
EXAM: CHEST RADIOGRAPHY EXAM DATE: 11/15/2017 03:48 PM. CLINICAL HISTORY: PICC line placement. COMPARISON: Earlier today at 1450. TECHNIQUE: 1 view. FINDINGS: Lungs/Pleura: Persistent clear. Mediastinum: Within exam limitations, the cardiomediastinal contour is normal. Other: Interval removal of the right PICC line. New left PICC line with the tip inferior third SVC. IMPRESSION: New left PICC line tip in the inferior third SVC. [facility] Referring Provider Line: [phone] SITE ID: [id number]
[2017-11-15] MEDS: ACETAMINOPHEN 325 MG TABLET PO PRN (16:36)
--- NOTE | 2017-11-15 17:12 | XRAY Report ---
FRONTAL CHEST: 11/15/2017 CLINICAL INDICATION: PICC placement. FINDINGS: Frontal view of the chest demonstrates a right arm PICC, which passes up the right jugular vein. This should be repositioned. The visualized cardiac silhouette and the lungs appear unremarkable on this oblique view. IMPRESSION: RIGHT ARM PICC EXTENDING UP THE RIGHT JUGULAR VEIN. THIS SHOULD BE REPOSITIONED. TD: 11/15/2017 15:19
[2017-11-15] MEDS ORDERED: MORPHINE 2 MG/ML SYRINGE IVP STA (19:33)
[2017-11-15] MEDS: FAT EMULSION 20% 250 ML IV SCH (20:42)
[2017-11-15] MEDS: TPN (CLINIMIX E 5/15) 2,000 ML IV SCH (20:43)
[2017-11-15] MEDS: ONDANSETRON ODT 4 MG TABLET TL PRN (20:57)
[2017-11-15] MEDS ORDERED: GABAPENTIN 300 MG CAPSULE PO SCH (21:00)
[2017-11-16] MEDS: LORazepam 2 MG/ML VIAL IVP PRN ×4 (00:09→17:27)
[2017-11-16] MEDS: ONDANSETRON 4 MG/2 ML VIAL IVP PRN ×4 (00:09→21:01)
[2017-11-16] MEDS: CIPROFLOXACIN 400 MG/200 ML 200 ML IV SCH ×2 (00:10→13:45)
[2017-11-16] MEDS: SCOPOLAMINE PATCH TOP SCH (00:10)
[2017-11-16] MEDS: SODIUM CHLORIDE FLUSH 0.9% 10 ML SYRINGE IVP SCH ×5 (00:25→21:01)
[2017-11-16] MEDS: MORPHINE PCA 50 MG IV PRN ×2 (00:28→16:53)
[2017-11-16] MEDS: metroNIDAZOLE 500 MG/100 ML 500 MG/100 ML BAG IV SCH ×3 (01:52→17:31)
[2017-11-16] MEDS: PANTOPRAZOLE 40 MG VIAL IVP SCH (05:59)
[2017-11-16] MEDS: SODIUM CHLORIDE FLUSH 0.9% 10 ML SYRINGE IVP PRN ×8 (05:59→11:18)
[2017-11-16 06:35] LABS: BASOPHILS % (AUTO) 0.3 %; EOSINOPHILS % (AUTO) 0.2 %; HGB - HEMOGLOBIN 12.2 g/dL (12.0-16.0); LYMPHOCYTES # (AUTO) 1.9 10^3/uL (1.5-3.5); MEAN CORPUSCULAR HEMOGLOBIN 34.2 pg (27.0-31.0); MEAN CORPUSCULAR HGB CONC 33.6 g/dL (32.0-36.0); MEAN CORPUSCULAR VOLUME 101.9 fL (81.0-99.0); MEAN PLATELET VOLUME 9.7 fL (7.9-10.8); MONOCYTES # (AUTO) 1.1 10^3/uL (0.0-1.0); MONOCYTES % (AUTO) 10.2 %; NEUTROPHILS # (AUTO) 7.7 10^3/uL (1.5-6.6); NEUTROPHILS % (AUTO) 71.3 %; PLT - PLATELET COUNT 157 10^3/uL (130-450); RED BLOOD COUNT 3.56 10^6/uL (4.20-5.40); RED CELL DISTRIBUTION WIDTH 14.3 % (12.0-15.0); WHITE BLOOD COUNT 10.7 x10^3/uL (4.8-10.8)
[2017-11-16 06:46] LABS: ALBUMIN 3.8 g/dL (3.2-5.5); ALBUMIN/GLOBULIN RATIO 1.4 (1.0-2.2); ALKALINE PHOSPHATASE 63 IU/L (42-121); ALT ALANINE AMINOTRANSFERASE 32 IU/L (10-60); AST ASPARTATE AMINOTRANSFERASE 33 IU/L (10-42); BILIRUBIN,TOTAL 0.5 mg/dL (0.2-1.0); BUN - BLOOD UREA NITROGEN 9 mg/dL (6-20); CALCIUM 8.4 mg/dL (8.5-10.3); CARBON DIOXIDE - CO2 25 mmol/L (21-32); CHLORIDE 105 mmol/L (101-111); CREATININE 0.6 mg/dL (0.4-1.0); GFR - MDRD 112 (>89); GLUCOSE 115 mg/dL (70-100); MAGNESIUM 1.8 mg/dL (1.7-2.8); PHOSPHORUS 2.2 mg/dL (2.5-4.6); PREALBUMIN 33 mg/dL (18-45); SODIUM 139 mmol/L (135-145); TOTAL PROTEIN 6.5 g/dL (6.7-8.2)
[2017-11-16 06:48] LABS: CRP - C-REACTIVE PROTEIN < 1.0 mg/dL (0-1.0)
[2017-11-16 06:55] LABS: INR 1.2 (0.8-1.2); PT - PROTHROMBIN TIME 13.4 secs (9.9-12.6)
[2017-11-16] MEDS: azaTHIOprine 50 MG TABLET PO SCH (08:57)
[2017-11-16] MEDS: POLYETHYLENE GLYCOL 3350 17 GM PACKET PO SCH (08:59)
[2017-11-16] MEDS: PROCHLORPERAZINE 10 MG/2 ML VIAL IVP PRN (09:03)
[2017-11-16] MEDS: methylPREDNISolone SUCCINATE 40 MG/ML VIAL IVP SCH (10:41)
[2017-11-16] MEDS: ENOXAPARIN 40 MG/0.4 ML SYRINGE SUBQ SCH (10:48)
[2017-11-16] MEDS: ALPRAZolam 0.25 MG TABLET PO SCH ×2 (15:14→17:32)
--- NOTE | 2017-11-16 16:10 | PROVIDER PROGRESS NOTE ---
Subjective - Prog Note Date Prog Note Date: 11/16/17 Prog Note Time: 16:06 - Subjective Pt reports feeling: Improved Subjective: Between yesterday and today she has had the PICC line, TPN started. She has been on a basal morphine. She had one episode of [place] and chills in the middle of the night but no fever. Yesterday was a rough day. Today she says it is much better. Abdominal pain is almost completely gone. The last time she had a bowel movement was the day before admission with a small amount of blood in it. She has no longer vomiting very much. Still needs a little bit of antiemetics. Current Medications - Current Medications Current Medications: Active Medications Acetaminophen (Tylenol) 650 mg PO Q4HR PRN PRN Reason: Pain 1 to 4 Last Admin: 11/15/17 16:36 Dose: 650 mg Alprazolam (Xanax) 0.5 mg PO 0800,1200,1800 [facility] Last Admin: 11/16/17 15:14 Dose: Not Given Azathioprine (Imuran) 250 mg PO DAILY [facility] Last Admin: 11/16/17 08:57 Dose: 250 mg Diphenhydramine HCl (Benadryl Inj) 25 mg IVP Q6HR PRN PRN Reason: ITCHING Enoxaparin Sodium (Lovenox) 40 mg SUBQ DAILY [facility] Last Admin: 11/16/17 10:48 Dose: 40 mg Ciprofloxacin (Cipro 400 Mg/200 Ml) 200 mls @ 200 mls/hr IV Q12H [facility] Last Infusion: 11/16/17 14:45 Dose: Infused Metronidazole (Flagyl 500 Mg/100 Ml) 500 mg in 100 mls @ 100 mls/hr IV Q8H [facility] Last Infusion: 11/16/17 11:40 Dose: 0 mls/hr Amino Ac/Electrol/Dextrose/Calcium (Clinimix E 5%-15% Solution) 2,000 mls @ 83 mls/hr IV Q24H MYRON PRN Reason: Protocol Last Admin: 11/15/17 20:43 Dose: 83 mls/hr Fat Emulsion Intravenous (Intralipid 20%) 250 mls @ 21 mls/hr IV Q24H [facility] Last Infusion: 11/16/17 09:30 Dose: Infused Lorazepam (Ativan Inj (Vial)) 0.5 mg IVP Q2H PRN PRN Reason: Anxiety Last Admin: 11/16/17 11:15 Dose: 0.5 mg Methylprednisolone (Solu-Medrol (40mg Vial)) 60 mg IVP DAILY [facility] Last Admin: 11/16/17 10:41 Dose: 60 mg Morphine Sulfate/Sodium Chloride (Morphine Superintendent Distribution (Use Superintendent Distribution Order Set)) 0 mg IV [employer] PRN; Protocol PRN Reason: PAIN Last Admin: 11/16/17 00:28 Dose: 50 mg Ondansetron HCl (Zofran Inj) 4 mg IVP Q6HR PRN PRN Reason: Nausea / Vomiting Last Admin: 11/16/17 13:51 Dose: 4 mg Ondansetron HCl (Zofran Odt) 4 mg TL Q6HR PRN PRN Reason: Nausea / Vomiting Last Admin: 11/15/17 20:57 Dose: 4 mg Pantoprazole Sodium (Protonix) 40 mg IVP QDAC [facility] Last Admin: 11/16/17 05:59 Dose: 40 mg Sumatriptan 20 Mg 1 each HAN ONCE PRN PRN Reason: HEADACHE Stop: 12/15/17 00:27 Humira 40 Mg 1 each SUBQ Q7D [facility] Last Admin: 11/16/17 08:59 Dose: Not Given Polyethylene Glycol (Miralax) 17 gm PO DAILY [facility] Last Admin: 11/16/17 08:59 Dose: Not Given Prochlorperazine Edisylate (Compazine Inj) 10 mg IVP Q6HR PRN PRN Reason: Nausea / Vomiting Last Admin: 11/16/17 09:03 Dose: 10 mg Promethazine HCl (Phenergan Inj) 25 mg IM Q6HR PRN PRN Reason: Nausea / Vomiting Scopolamine HBr (Transderm-Scop) 1 patch TOP Q72H [facility] Last Admin: 11/16/17 00:10 Dose: 1 patch Sodium Chloride (Normal Saline Flush 0.9%) 10 ml IVP PRN PRN PRN Reason: NEEDED PER PROVIDER ORDERS Last Admin: 11/16/17 11:18 Dose: 10 ml Sodium Chloride (Normal Saline Flush 0.9%) 10 ml IVP 0100,0900,1700 [facility] Last Admin: 11/16/17 13:52 Dose: 10 ml Sertraline HCl [Zoloft] 100 mg PO QPM 04/23/14 Alprazolam [Xanax] 1.5 mg PO QPM 10/24/14 Famotidine [Pepcid] 20 mg PO BID 10/24/14 Folic Acid 1 mg PO DAILY 10/24/14 Gabapentin 1,800 mg PO QPM 10/24/14 Ondansetron Odt [Zofran Odt] 8 mg PO QID 10/24/14 Pantoprazole [Protonix] 40 mg PO QDAC 10/24/14 Adalimumab [Humira] 40 mg SQ Q7D 10/17/16 Azathioprine 250 mg PO DAILY 10/17/16 SUMAtriptan [Sumatriptan] 20 mg HAN ONCE PRN MDD 40 10/17/16 oxyCODONE [Roxicodone] 10 mg PO QID 10/17/16 Budesonide [Budesonide EC] 9 mg PO DAILY 12/12/16 Diphenoxylate/Atropine [Lomotil] 2 each PO QID PRN 12/12/16 HYDROmorphone [Dilaudid] 2 mg PO Q6H 12/12/16 Promethazine [Phenergan] 25 mg PO TID 12/13/16 Epinephrine [Epipen 2-Jonn] 0.3 mg IM PRN PRN 11/14/17 Scopolamine 1 each TD Q72H 11/14/17 Ursodiol 600 mg PO BID 11/14/17 ALPRAZolam [Alprazolam] 0.5 mg PO 0800,1300,1800 11/15/17 Gabapentin 600 mg PO 0800,1400 11/15/17 SUMAtriptan [Imitrex] 25 mg PO ONCE PRN MDD 50 MG 11/15/17 Scopolamine Patch [Transderm-Scop] 1 patch TOP Q3D PRN 11/15/17 predniSONE [Prednisone] 3 mg PO DAILY 11/15/17 Objective - Vital Signs/Intake & Output Reviewed Vital Signs: Yes Vital Signs: Vital Signs x48h Temp Pulse Resp BP Pulse Ox 11/16/17 15:45 16 11/16/17 15:36 37.1 C 65 18 139/72 H 94 11/16/17 10:00 16 11/16/17 08:11 36.5 C 63 16 103/54 L 94 Intake & Output: Intake & Output 11/13/17 11/14/17 11/15/17 11/16/17 23:59 23:59 23:59 23:59 Intake Total 2493.000 848.333 Balance 2493.000 848.333 - Objective General Appearance: positive: No acute distress, Alert, Other (cushinoid fascies ) Eyes Bilateral: positive: PERRL ENT: positive: Pharynx nml Neck: positive: No JVD. negative: Stiff neck, Carotid bruit Respiratory: positive: Chest non-tender, No respiratory distress. negative: Wheezes, Rales, Rhonchi Cardiovascular: positive: Regular rate & rhythm. negative: Gallop/S4, Friction rub Abdomen: positive: Nml bowel sounds, Tenderness (mild and in all quadrants. not localized). negative: Guarding, Rebound, Hepatomegaly, Splenomegaly Skin: positive: Warm, Dry Extremities: positive: Full ROM, No pedal edema Neurologic/Psychiatric: positive: Oriented x3, CN's nml (2-12), Motor nml - Lab Results Fish Bones: 11/16/17 06:10 11/16/17 06:10 Other Labs: Lab Results x24hrs 11/16/17 11/16/17 11/16/17 Range/Units 13:26 06:10 06:10 WBC (4.8-10.8) x10^3/uL RBC (4.20-5.40) 10^6/uL Hgb (12.0-16.0) g/dL Hct (37.0-47.0) % MCV (81.0-99.0) fL MCH (27.0-31.0) pg MCHC (32.0-36.0) g/dL RDW (12.0-15.0) % Plt Count (130-450) 10^3/uL MPV (7.9-10.8) fL Neut # (1.5-6.6) 10^3/uL Lymph # (1.5-3.5) 10^3/uL [place] # (0.0-1.0) 10^3/uL Eos # (0.0-0.7) 10^3/uL Baso # (0.0-0.1) 10^3/uL Absolute Nucleated RBC x10^3/uL Nucleated RBC % /100WBC ESR (0-20) mm/Hr PT 13.4 H (9.9-12.6) secs INR 1.2 (0.8-1.2) Sodium 139 (135-145) mmol/L Potassium 2.8 L (3.5-5.0) mmol/L Chloride 105 (101-111) mmol/L Carbon Dioxide 25 (21-32) mmol/L Anion Gap 9.0 (6-13) BUN 9 (6-20) mg/dL Creatinine 0.6 (0.4-1.0) mg/dL Estimated GFR (MDRD) 112 (>89) Glucose 115 H (70-100) mg/dL POC Whole Bld Glucose (70 - 100) mg/dL Calcium 8.4 L (8.5-10.3) mg/dL Phosphorus 2.2 L (2.5-4.6) mg/dL Magnesium 1.8 (1.7-2.8) mg/dL Total Bilirubin 0.5 (0.2-1.0) mg/dL AST 33 (10-42) IU/L ALT 32 (10-60) IU/L Alkaline Phosphatase 63 (42-121) IU/L C-Reactive Protein < 1.0 (0-1.0) mg/dL Total Protein 6.5 L (6.7-8.2) g/dL Albumin 3.8 (3.2-5.5) g/dL Globulin 2.7 (2.1-4.2) g/dL Albumin/Globulin Ratio 1.4 (1.0-2.2) Prealbumin 33 (18-45) mg/dL Triglycerides 258 H ( - 149) mg/dL Vitamin B12 248 (180-914) pg/mL 25-OH Vitamin D Total (30-100) ng/mL 11/16/1718 11/16/17 Range/Units 06:10 06:10 05:49 WBC 10.7 (4.8-10.8) x10^3/uL RBC 3.56 L (4.20-5.40) 10^6/uL Hgb 12.2 (12.0-16.0) g/dL Hct 36.3 L (37.0-47.0) % MCV 101.9 H (81.0-99.0) fL MCH 34.2 H (27.0-31.0) pg MCHC 33.6 (32.0-36.0) g/dL RDW 14.3 (12.0-15.0) % Plt Count 157 (130-450) 10^3/uL MPV 9.7 (7.9-10.8) fL Neut # 7.7 H (1.5-6.6) 10^3/uL Lymph # 1.9 (1.5-3.5) 10^3/uL [place] # 1.1 H (0.0-1.0) 10^3/uL Eos # 0.0 (0.0-0.7) 10^3/uL Baso # 0.0 (0.0-0.1) 10^3/uL Absolute Nucleated RBC 0.00 x10^3/uL Nucleated RBC % 0.0 /100WBC ESR 11 (0-20) mm/Hr PT (9.9-12.6) secs INR (0.8-1.2) Sodium (135-145) mmol/L Potassium (3.5-5.0) mmol/L Chloride (101-111) mmol/L Carbon Dioxide (21-32) mmol/L Anion Gap (6-13) BUN (6-20) mg/dL Creatinine (0.4-1.0) mg/dL Estimated GFR (MDRD) (>89) Glucose (70-100) mg/dL POC Whole Bld Glucose 113 H (70 - 100) mg/dL Calcium (8.5-10.3) mg/dL Phosphorus (2.5-4.6) mg/dL Magnesium (1.7-2.8) mg/dL Total Bilirubin (0.2-1.0) mg/dL AST (10-42) IU/L ALT (10-60) IU/L Alkaline Phosphatase (42-121) IU/L C-Reactive Protein (0-1.0) mg/dL Total Protein (6.7-8.2) g/dL Albumin (3.2-5.5) g/dL Globulin (2.1-4.2) g/dL Albumin/Globulin Ratio (1.0-2.2) Prealbumin (18-45) mg/dL Triglycerides ( - 149) mg/dL Vitamin B12 (180-914) pg/mL 25-OH Vitamin D Total (30-100) ng/mL 11/15/17 Range/Units 14:02 WBC (4.8-10.8) x10^3/uL RBC (4.20-5.40) 10^6/uL Hgb (12.0-16.0) g/dL Hct (37.0-47.0) % MCV (81.0-99.0) fL MCH (27.0-31.0) pg MCHC (32.0-36.0) g/dL RDW (12.0-15.0) % Plt Count (130-450) 10^3/uL MPV (7.9-10.8) fL Neut # (1.5-6.6) 10^3/uL Lymph # (1.5-3.5) 10^3/uL [place] # (0.0-1.0) 10^3/uL Eos # (0.0-0.7) 10^3/uL Baso # (0.0-0.1) 10^3/uL Absolute Nucleated RBC x10^3/uL Nucleated RBC % /100WBC ESR (0-20) mm/Hr PT (9.9-12.6) secs INR (0.8-1.2) Sodium (135-145) mmol/L Potassium (3.5-5.0) mmol/L Chloride (101-111) mmol/L Carbon Dioxide (21-32) mmol/L Anion Gap (6-13) BUN (6-20) mg/dL Creatinine (0.4-1.0) mg/dL Estimated GFR (MDRD) (>89) Glucose (70-100) mg/dL POC Whole Bld Glucose (70 - 100) mg/dL Calcium (8.5-10.3) mg/dL Phosphorus (2.5-4.6) mg/dL Magnesium (1.7-2.8) mg/dL Total Bilirubin (0.2-1.0) mg/dL AST (10-42) IU/L ALT (10-60) IU/L Alkaline Phosphatase (42-121) IU/L C-Reactive Protein (0-1.0) mg/dL Total Protein (6.7-8.2) g/dL Albumin (3.2-5.5) g/dL Globulin (2.1-4.2) g/dL Albumin/Globulin Ratio (1.0-2.2) Prealbumin (18-45) mg/dL Triglycerides ( - 149) mg/dL Vitamin B12 (180-914) pg/mL 25-OH Vitamin D Total 45 (30-100) ng/mL ABX Reporting Has patient been on IV antibiotics over the past 48 hours?: Yes Assessment/Plan - Problem List (1) Colitis Impression: Patient presented with progressively worsening abdominal pain, nausea and diarrhea over the last 6 weeks. Patient has gotten to a point where she is not able to keep even water down. The patient's pain is uncontrolled. This is a change from the last year where she's relatively quiescent disease. She does have occasional blood in her stool, but this last week it has been much, much more voluminous. On presentation however she does not have a leukocytosis. She does not have any fevers. The patient's CT scan of the abdomen is consistent with colitis, likely infectious colitis. The patient did get a short course of oral ciprofloxacin about 5 weeks ago with which she did have stabilization of her symptoms but admits that she was not always able to keep the antibiotics down. It appears the patient likely has an infectious colitis that has exacerbated her Crohn's disease. Given the patient is immunosuppressed secondary to her Crohn's and immunosuppressive medication we will be aggressive with treatment of infectious colitis. I did try to call Dr. Lira today who is her GI doc. But he is out until November 30. I asked for his RN or one of his colleagues instead, and unfortunately, they couldn't review the case because the main observer gravity prospecting for their medical records has been down since 7:30 am and they won't know anything about her. They asked to call back Sunday if she's still here. She feels she is improving in comparison to yesterday Plan: N.p.o. except for clear liquids IV fluids IV Cipro and Flagyl Stool cultures have been ordered but no BM yet. Monitor closely (2) Crohn's colitis Conclusion/Plan: Patient appears to have exacerbation of her Crohn's disease in the setting of an infectious colitis. The patient has been having increasing abdominal pain, bloody diarrhea and intractable nausea and vomiting. Patient has been unable to get adequate oral intake and has become increasingly dehydrated. The patient 's pain is uncontrolled that she is unable to keep down her pain medications. Plan: N.p.o. for bowel rest IV fluids IV Cipro and Flagyl to treat infectious colitis IV Solu-Medrol 60 mg daily to treat Crohn's disease Continue home dose of Humira and azathioprine PICC line put in yesterday for nutritional supplementation with TPN TPN started last night. [employer] with morphine for pain control was not basal rate and that was corrected last night. Qualifiers: Digestive disease complication type: other complication Qualified Code(s): K50.118 - Crohn's disease of large intestine with other complication (3) Caloric malnutrition Conclusion/Plan: The patient has had severe caloric malnutrition especially over the last 6 weeks. It is progressed to the point where the patient cannot keep down even water. Prior to that she was keeping down about 25% of her food. This is likely secondary to her Crohn's exacerbation and infectious colitis. For now while the patient is being treated for her Crohn's and infectious colitis we need to ensure that she gets adequate nutrition. Plan: PICC line already placed 11/15 Nutrition consult for TPN done and TPN started. We are watching Phos in her since she tends to go high. K is low and TPN bag only has 60 meq, will give a rider of 20 meq Pre-albumin is 33 (4) Hypokalemia Conclusion/Plan: On presentation patient's potassium is decreased at 2.8 likely secondary to intractable nausea vomiting. We will replace patient's potassium IV with potassium rider and with IV fluids. TPN doesn't have enough and will give extra rider. Monitor potassium (5) Depression Conclusion/Plan: Patient has a history of depression and is on antidepressants however she is going to be strict n.p.o. while she is hospitalized and will not be receiving her antidepressants. We will continue to monitor but currently she appears to be stable. She just wants to make sure we give her xanax as scheduled at home. Qualifiers: Depression Type: unspecified Qualified Code(s): F32.9 - Major depressive disorder, single episode, unspecified
[2017-11-16] MEDS: diphenhydrAMINE INJ 50 MG/ML VIAL IVP PRN (17:24)
--- NOTE | 2017-11-16 19:17 | XRAY Report ---
EXAM: CHEST RADIOGRAPHY EXAM DATE: 11/16/2017 06:05 PM. CLINICAL HISTORY: New neck pain after failed right PICC placement. COMPARISON: Today at 1536. TECHNIQUE: 1 view. FINDINGS: Lungs/Pleura: No focal opacities evident. No pleural effusion. No pneumothorax. Mediastinum: Within exam limitations, the cardiomediastinal contour is normal. Other: Stable left PICC. No bony abnormality identified. IMPRESSION: No acute abnormality or interval change. Stable left PICC. [facility] Referring Provider Line: [phone] SITE ID: [id number]
[2017-11-16] MEDS: FAT EMULSION 20% 250 ML IV SCH (19:35)
[2017-11-16] MEDS: TPN (CLINIMIX E 5/15) 2,000 ML IV SCH (19:35)
[2017-11-17] MEDS: INSULIN REGULAR HUMAN 100 UNIT/1 ML 10 ML MDV SUBQ SCH ×4 (00:09→17:07)
[2017-11-17] MEDS: metroNIDAZOLE 500 MG/100 ML 500 MG/100 ML BAG IV SCH ×3 (00:23→17:29)
[2017-11-17] MEDS: SODIUM CHLORIDE FLUSH 0.9% 10 ML SYRINGE IVP SCH ×6 (00:23→23:49)
[2017-11-17] MEDS: LORazepam 2 MG/ML VIAL IVP PRN ×5 (00:24→23:49)
[2017-11-17] MEDS: CIPROFLOXACIN 400 MG/200 ML 200 ML IV SCH ×3 (01:33→23:59)
[2017-11-17] MEDS: ONDANSETRON 4 MG/2 ML VIAL IVP PRN ×2 (04:05→23:49)
[2017-11-17] MEDS: MORPHINE PCA 50 MG IV PRN ×2 (06:20→20:43)
[2017-11-17] MEDS: ONDANSETRON ODT 4 MG TABLET TL PRN ×3 (06:49→20:42)
[2017-11-17] MEDS: PANTOPRAZOLE 40 MG VIAL IVP SCH (06:49)
[2017-11-17] MEDS: SODIUM CHLORIDE FLUSH 0.9% 10 ML SYRINGE IVP PRN (06:50)
[2017-11-17 07:33] LABS: BASOPHILS % (AUTO) 0.4 %; EOSINOPHILS % (AUTO) 0.6 %; HGB - HEMOGLOBIN 12.2 g/dL (12.0-16.0); LYMPHOCYTES # (AUTO) 2.4 10^3/uL (1.5-3.5); LYMPHOCYTES % (AUTO) 30.2 %; MEAN CORPUSCULAR HEMOGLOBIN 35.1 pg (27.0-31.0); MEAN CORPUSCULAR HGB CONC 34.4 g/dL (32.0-36.0); MEAN PLATELET VOLUME 9.8 fL (7.9-10.8); MONOCYTES # (AUTO) 0.6 10^3/uL (0.0-1.0); MONOCYTES % (AUTO) 7.8 %; NEUTROPHILS # (AUTO) 4.8 10^3/uL (1.5-6.6); PLT - PLATELET COUNT 133 10^3/uL (130-450); RED BLOOD COUNT 3.47 10^6/uL (4.20-5.40); RED CELL DISTRIBUTION WIDTH 14.3 % (12.0-15.0); WHITE BLOOD COUNT 7.8 x10^3/uL (4.8-10.8)
[2017-11-17 08:00] LABS: ALBUMIN 3.1 g/dL (3.2-5.5); ALBUMIN/GLOBULIN RATIO 1.5 (1.0-2.2); ALKALINE PHOSPHATASE 52 IU/L (42-121); ALT ALANINE AMINOTRANSFERASE 24 IU/L (10-60); AST ASPARTATE AMINOTRANSFERASE 25 IU/L (10-42); BILIRUBIN,TOTAL 0.5 mg/dL (0.2-1.0); BUN - BLOOD UREA NITROGEN 9 mg/dL (6-20); CALCIUM 6.9 mg/dL (8.5-10.3); CARBON DIOXIDE - CO2 21 mmol/L (21-32); CHLORIDE 112 mmol/L (101-111); CREATININE 0.4 mg/dL (0.4-1.0); GFR - MDRD 180 (>89); GLUCOSE 96 mg/dL (70-100); MAGNESIUM 1.6 mg/dL (1.7-2.8); PHOSPHORUS 2.2 mg/dL (2.5-4.6); SODIUM 141 mmol/L (135-145); TOTAL PROTEIN 5.2 g/dL (6.7-8.2)
[2017-11-17 08:02] LABS: CRP - C-REACTIVE PROTEIN < 1.0 mg/dL (0-1.0)
[2017-11-17 08:06] LABS: HB2 TOTAL 13.1 g/dL; HEMOGLOBIN A1C 0.47 g/dL; HEMOGLOBIN A1C % 5.4 % (4.6-6.2)
[2017-11-17] MEDS: azaTHIOprine 50 MG TABLET PO SCH (08:17)
[2017-11-17] MEDS: ALPRAZolam 0.25 MG TABLET PO SCH ×3 (08:17→17:29)
[2017-11-17] MEDS: ENOXAPARIN 40 MG/0.4 ML SYRINGE SUBQ SCH (08:18)
[2017-11-17] MEDS: methylPREDNISolone SUCCINATE 40 MG/ML VIAL IVP SCH (08:18)
[2017-11-17] MEDS: POLYETHYLENE GLYCOL 3350 17 GM PACKET PO SCH (08:19)
[2017-11-17] MEDS ORDERED: CYANOCOBALAMIN 1,000 MCG/ML VIAL IM ONE (09:00)
[2017-11-17] MEDS ORDERED: CALCIUM GLUCONATE 1,000 MG in SODIUM CHLORIDE 0.9% 50 ML IV ONE (09:00)
[2017-11-17] MEDS ORDERED: POTASSIUM CHLORIDE INJ 40 MEQ in SODIUM CHLORIDE 0.9% 480 ML IV ONE (09:00)
[2017-11-17] MEDS ORDERED: POTASSIUM PHOSPHATE 15 MMOL in SODIUM CHLORIDE 0.9% 250 ML IV ONE (10:00)
--- NOTE | 2017-11-17 12:22 | PROVIDER PROGRESS NOTE ---
Subjective - Prog Note Date Prog Note Date: 11/17/17 Prog Note Time: 12:06 - Subjective Pt reports feeling: Improved Subjective: At home her symptoms were abd pain, increased amount of bloody stool, N/V and unable to keep food down. Today: no diarrhea, abd pain controlled w RN [employer] M[employer]OW [employer]PL[employer], has nausea but no emesis. Able to do ice chips and clears. I am adjusting her electrolytes on TPN. No further episodes of dystonia from last night. That was pretty scary for her. Current Medications - Current Medications Current Medications: Active Medications Acetaminophen (Tylenol) 650 mg PO Q4HR PRN PRN Reason: Pain 1 to 4 Last Admin: 11/15/17 16:36 Dose: 650 mg Alprazolam (Xanax) 0.5 mg PO 0800,1200,1800 [facility] Last Admin: 11/17/17 12:20 Dose: 0.5 mg Azathioprine (Imuran) 250 mg PO DAILY [facility] Last Admin: 11/17/17 08:17 Dose: 250 mg Diphenhydramine HCl (Benadryl Inj) 25 mg IVP Q6HR PRN PRN Reason: ITCHING Last Admin: 11/16/17 17:24 Dose: 25 mg Enoxaparin Sodium (Lovenox) 40 mg SUBQ DAILY [facility] Last Admin: 11/17/17 08:18 Dose: 40 mg Ciprofloxacin (Cipro 400 Mg/200 Ml) 200 mls @ 200 mls/hr IV Q12H [facility] Last Admin: 11/17/17 12:21 Dose: 200 mls/hr Metronidazole (Flagyl 500 Mg/100 Ml) 500 mg in 100 mls @ 100 mls/hr IV Q8H [facility] Last Infusion: 11/17/17 09:20 Dose: Infused Amino Ac/Electrol/Dextrose/Calcium (Clinimix E 5%-15% Solution) 2,000 mls @ 83 mls/hr IV Q24H [facility] PRN Reason: Protocol Last Admin: 11/16/17 19:35 Dose: 83 mls/hr Fat Emulsion Intravenous (Intralipid 20%) 250 mls @ 21 mls/hr IV Q24H [facility] Last Infusion: 11/17/17 07:59 Dose: Infused Potassium Chloride 40 meq/ (Sodium Chloride) 500 mls @ 125 mls/hr IV ONCE ONE Stop: 11/17/17 12:59 Last Admin: 11/17/17 09:43 Dose: 125 mls/hr Potassium Phosphate 15 mmol/ (Sodium Chloride) 255 mls @ 42.5 mls/hr IV ONCE ONE Stop: 11/17/17 15:59 Insulin Human Regular (Novolin R) 1 - 5 unit SUBQ Q6HR [facility] PRN Reason: Protocol Last Admin: 11/17/17 11:57 Dose: Not Given Lorazepam (Ativan Inj (Vial)) 0.5 mg IVP Q2H PRN PRN Reason: Anxiety Last Admin: 11/17/17 04:05 Dose: 0.5 mg Methylprednisolone (Solu-Medrol (40mg Vial)) 60 mg IVP DAILY [facility] Last Admin: 11/17/17 08:18 Dose: 60 mg Morphine Sulfate/Sodium Chloride (Morphine Chemist Assistant (Use Chemist Assistant Order Set)) 0 mg IV RN [employer]PLANT PRN; Protocol PRN Reason: PAIN Last Admin: 11/17/17 06:20 Dose: 50 mg Ondansetron HCl (Zofran Inj) 4 mg IVP Q6HR PRN PRN Reason: Nausea / Vomiting Last Admin: 11/17/17 04:05 Dose: 4 mg Ondansetron HCl (Zofran Odt) 4 mg TL Q6HR PRN PRN Reason: Nausea / Vomiting Last Admin: 11/17/17 06:49 Dose: 4 mg Pantoprazole Sodium (Protonix) 40 mg IVP QDAC [facility] Last Admin: 11/17/17 06:49 Dose: 40 mg Sumatriptan 20 Mg 1 each HAN ONCE PRN PRN Reason: HEADACHE Stop: 12/15/17 00:27 Humira 40 Mg 1 each SUBQ Q7D [facility] Last Admin: 11/17/17 09:49 Dose: 1 each Polyethylene Glycol (Miralax) 17 gm PO DAILY [facility] Last Admin: 11/17/17 08:19 Dose: Not Given Promethazine HCl (Phenergan Inj) 25 mg IM Q6HR PRN PRN Reason: Nausea / Vomiting Scopolamine HBr (Transderm-Scop) 1 patch TOP Q72H [facility] Last Admin: 11/16/17 00:10 Dose: 1 patch Sodium Chloride (Normal Saline Flush 0.9%) 10 ml IVP PRN PRN PRN Reason: NEEDED PER PROVIDER ORDERS Last Admin: 11/17/17 06:50 Dose: 30 ml Sodium Chloride (Normal Saline Flush 0.9%) 10 ml IVP 0100,0900,1700 [facility] Last Admin: 11/17/17 08:18 Dose: 10 ml Sertraline HCl [Zoloft] 100 mg PO QPM 10/22/13 Alprazolam [Xanax] 1.5 mg PO QPM 10/24/14 Famotidine [Pepcid] 20 mg PO BID 10/24/14 Folic Acid 1 mg PO DAILY 10/24/14 Gabapentin 1,800 mg PO QPM 10/24/14 Ondansetron Odt [Zofran Odt] 8 mg PO QID 10/24/14 Pantoprazole [Protonix] 40 mg PO QDAC 10/24/14 Adalimumab [Humira] 40 mg SQ Q7D 10/17/16 Azathioprine 250 mg PO DAILY 10/17/16 SUMAtriptan [Sumatriptan] 20 mg HAN ONCE PRN MDD 40 10/17/16 oxyCODONE [Roxicodone] 10 mg PO QID 10/17/16 Budesonide [Budesonide EC] 9 mg PO DAILY 12/12/16 Diphenoxylate/Atropine [Lomotil] 2 each PO QID PRN 12/12/16 HYDROmorphone [Dilaudid] 2 mg PO Q6H 12/12/16 Promethazine [Phenergan] 25 mg PO TID 12/13/16 Epinephrine [Epipen 2-Jonn] 0.3 mg IM PRN PRN 11/14/17 Scopolamine 1 each TD Q72H 11/14/17 Ursodiol 600 mg PO BID 11/14/17 ALPRAZolam [Alprazolam] 0.5 mg PO 0800,1300,1800 11/15/17 Gabapentin 600 mg PO 0800,1400 11/15/17 SUMAtriptan [Imitrex] 25 mg PO ONCE PRN MDD 50 MG 11/15/17 Scopolamine Patch [Transderm-Scop] 1 patch TOP Q3D PRN 11/15/17 predniSONE [Prednisone] 3 mg PO DAILY 11/15/17 Objective - Vital Signs/Intake & Output Reviewed Vital Signs: Yes Vital Signs: Vital Signs x48h Temp Pulse Resp BP Pulse Ox 11/17/17 10:00 18 11/17/17 07:51 36.8 C 62 18 122/64 96 11/17/17 05:34 16 Intake & Output: Intake & Output 11/14/17 11/15/17 11/16/17 11/17/17 23:59 23:59 23:59 23:59 Intake Total 2493.000 3083.266 710 Balance 2493.000 3083.266 710 - Objective General Appearance: positive: No acute distress, Alert, Other (cushinoid white female sitting up in bed, watching "[employer] girls") Eyes Bilateral: positive: PERRL, EOMI ENT: positive: Pharynx nml Neck: negative: Stiff neck, Carotid bruit Respiratory: positive: Chest non-tender. negative: Wheezes, Rales, Rhonchi Cardiovascular: positive: Regular rate & rhythm. negative: Systolic murmur, Gallop/S4, Friction rub Abdomen: positive: Non-tender, No organomegaly, Nml bowel sounds, No distention Skin: positive: Warm, Dry Extremities: positive: No pedal edema Neurologic/Psychiatric: positive: Oriented x3, CN's nml (2-12), Motor nml - Lab Results Fish Bones: 11/17/17 07:07 11/17/17 07:07 Other Labs: Lab Results x24hrs 11/17/17 11/17/17 11/17/17 Range/Units 11:26 07:07 07:07 WBC (4.8-10.8) x10^3/uL RBC (4.20-5.40) 10^6/uL Hgb (12.0-16.0) g/dL Hct (37.0-47.0) % MCV (81.0-99.0) fL MCH (27.0-31.0) pg MCHC (32.0-36.0) g/dL RDW (12.0-15.0) % Plt Count (130-450) 10^3/uL MPV (7.9-10.8) fL Neut # (1.5-6.6) 10^3/uL Lymph # (1.5-3.5) 10^3/uL [place] # (0.0-1.0) 10^3/uL Eos # (0.0-0.7) 10^3/uL Baso # (0.0-0.1) 10^3/uL Absolute Nucleated RBC x10^3/uL Nucleated RBC % /100WBC ESR (0-20) mm/Hr Sodium 141 (135-145) mmol/L Potassium 2.3 L* (3.5-5.0) mmol/L Chloride 112 H (101-111) mmol/L Carbon Dioxide 21 (21-32) mmol/L Anion Gap 8.0 (6-13) BUN 9 (6-20) mg/dL Creatinine 0.4 (0.4-1.0) mg/dL Estimated GFR (MDRD) 180 (>89) Glucose 96 (70-100) mg/dL POC Whole Bld Glucose 150 H (70 - 100) mg/dL Glycated Hemoglobin 5.4 (4.6-6.2) % Estim Average Glucose 108 H (70-100) Calcium 6.9 L (8.5-10.3) mg/dL Phosphorus 2.2 L (2.5-4.6) mg/dL Magnesium 1.6 L (1.7-2.8) mg/dL Total Bilirubin 0.5 (0.2-1.0) mg/dL AST 25 (10-42) IU/L ALT 24 (10-60) IU/L Alkaline Phosphatase 52 (42-121) IU/L C-Reactive Protein < 1.0 (0-1.0) mg/dL Total Protein 5.2 L (6.7-8.2) g/dL Albumin 3.1 L (3.2-5.5) g/dL Globulin 2.1 (2.1-4.2) g/dL Albumin/Globulin Ratio 1.5 (1.0-2.2) Vitamin B12 (180-914) pg/mL 11/17/17 11/17/17 11/17/17 Range/Units 07:07 07:07 00:06 WBC 7.8 (4.8-10.8) x10^3/uL RBC 3.47 L (4.20-5.40) 10^6/uL Hgb 12.2 (12.0-16.0) g/dL Hct 35.4 L (37.0-47.0) % MCV 102.0 H (81.0-99.0) fL MCH 35.1 H (27.0-31.0) pg MCHC 34.4 (32.0-36.0) g/dL RDW 14.3 (12.0-15.0) % Plt Count 133 (130-450) 10^3/uL MPV 9.8 (7.9-10.8) fL Neut # 4.8 (1.5-6.6) 10^3/uL Lymph # 2.4 (1.5-3.5) 10^3/uL [place] # 0.6 (0.0-1.0) 10^3/uL Eos # 0.0 (0.0-0.7) 10^3/uL Baso # 0.0 (0.0-0.1) 10^3/uL Absolute Nucleated RBC 0.01 x10^3/uL Nucleated RBC % 0.1 /100WBC ESR 12 (0-20) mm/Hr Sodium (135-145) mmol/L Potassium (3.5-5.0) mmol/L Chloride (101-111) mmol/L Carbon Dioxide (21-32) mmol/L Anion Gap (6-13) BUN (6-20) mg/dL Creatinine (0.4-1.0) mg/dL Estimated GFR (MDRD) (>89) Glucose (70-100) mg/dL POC Whole Bld Glucose 109 H (70 - 100) mg/dL Glycated Hemoglobin (4.6-6.2) % Estim Average Glucose (70-100) Calcium (8.5-10.3) mg/dL Phosphorus (2.5-4.6) mg/dL Magnesium (1.7-2.8) mg/dL Total Bilirubin (0.2-1.0) mg/dL AST (10-42) IU/L ALT (10-60) IU/L Alkaline Phosphatase (42-121) IU/L C-Reactive Protein (0-1.0) mg/dL Total Protein (6.7-8.2) g/dL Albumin (3.2-5.5) g/dL Globulin (2.1-4.2) g/dL Albumin/Globulin Ratio (1.0-2.2) Vitamin B12 (180-914) pg/mL 11/16/17 11/16/17 Range/Units 21:14 13:26 WBC (4.8-10.8) x10^3/uL RBC (4.20-5.40) 10^6/uL Hgb (12.0-16.0) g/dL Hct (37.0-47.0) % MCV (81.0-99.0) fL MCH (27.0-31.0) pg MCHC (32.0-36.0) g/dL RDW (12.0-15.0) % Plt Count (130-450) 10^3/uL MPV (7.9-10.8) fL Neut # (1.5-6.6) 10^3/uL Lymph # (1.5-3.5) 10^3/uL [place] # (0.0-1.0) 10^3/uL Eos # (0.0-0.7) 10^3/uL Baso # (0.0-0.1) 10^3/uL Absolute Nucleated RBC x10^3/uL Nucleated RBC % /100WBC ESR (0-20) mm/Hr Sodium (135-145) mmol/L Potassium (3.5-5.0) mmol/L Chloride (101-111) mmol/L Carbon Dioxide (21-32) mmol/L Anion Gap (6-13) BUN (6-20) mg/dL Creatinine (0.4-1.0) mg/dL Estimated GFR (MDRD) (>89) Glucose (70-100) mg/dL POC Whole Bld Glucose 130 H (70 - 100) mg/dL Glycated Hemoglobin (4.6-6.2) % Estim Average Glucose (70-100) Calcium (8.5-10.3) mg/dL Phosphorus (2.5-4.6) mg/dL Magnesium (1.7-2.8) mg/dL Total Bilirubin (0.2-1.0) mg/dL AST (10-42) IU/L ALT (10-60) IU/L Alkaline Phosphatase (42-121) IU/L C-Reactive Protein (0-1.0) mg/dL Total Protein (6.7-8.2) g/dL Albumin (3.2-5.5) g/dL Globulin (2.1-4.2) g/dL Albumin/Globulin Ratio (1.0-2.2) Vitamin B12 248 (180-914) pg/mL Assessment/Plan - Problem List (1) Colitis Impression: Patient presented with progressively worsening abdominal pain, nausea and diarrhea over the last 6 weeks. Patient has gotten to a point where she is not able to keep even water down. The patient's pain is uncontrolled. This is a change from the last year where she's relatively quiescent disease. She does have occasional blood in her stool, but this last week it has been much, much more voluminous. On presentation however she does not have a leukocytosis. She does not have any fevers. The patient's CT scan of the abdomen is consistent with colitis, likely infectious colitis. The patient did get a short course of oral ciprofloxacin about 5 weeks ago with which she did have stabilization of her symptoms but admits that she was not always able to keep the antibiotics down. It appears the patient likely has an infectious colitis that has exacerbated her Crohn's disease. Given the patient is immunosuppressed secondary to her Crohn's and immunosuppressive medication we will be aggressive with treatment of infectious colitis. I did try to call Dr. Lira 11/16 who is her GI doc. But he is out until November 30. I asked for his RN or one of his colleagues instead, and unfortunately, they couldn't review the case because the main patient observer for their medical records has been down since 7:30 am and they won't know anything about her. They asked to call back Sunday if she's still here. She is steadily improving from admission. Less nausea, pain controlled, and no diarrhea. Plan: N.p.o. except for clear liquids IV fluids IV Cipro and Flagyl Stool cultures have been ordered but no BM yet. Monitor closely If I can correct her electrolytes over the next 2 days, plan for dc on Sunday to home with TPN. (2) Crohn's colitis Conclusion/Plan: Patient appears to have exacerbation of her Crohn's disease in the setting of an infectious colitis. The patient has been having increasing abdominal pain, bloody diarrhea and intractable nausea and vomiting. Patient has been unable to get adequate oral intake and has become increasingly dehydrated. The patient 's pain is uncontrolled that she is unable to keep down her pain medications. Plan: No solid food for bowel rest IV fluids IV Cipro and Flagyl to treat infectious colitis IV Solu-Medrol 60 mg daily to treat Crohn's disease Continue home dose of Humira and azathioprine PICC line put in yesterday for nutritional supplementation with TPN TPN started last night. RN B[employer] MARROW TRANSPLANT with morphine for pain control was not basal rate and that was corrected last night. Qualifiers: Digestive disease complication type: other complication Qualified Code(s): K50.118 - Crohn's disease of large intestine with other complication (3) Caloric malnutrition Conclusion/Plan: The patient has had severe caloric malnutrition especially over the last 6 weeks. It is progressed to the point where the patient cannot keep down even water. Prior to that she was keeping down about 25% of her food. This is likely secondary to her Crohn's exacerbation and infectious colitis. For now while the patient is being treated for her Crohn's and infectious colitis we need to ensure that she gets adequate nutrition. Plan: PICC line already placed 11/15 Nutrition consult for TPN done and TPN started. We are watching Phos in her since she tends to go high. K is low and TPN bag only has 60 meq Being given KPhos rider, K rider and Caclium today check iron and ferritin to see if needs infusion give Vit B12 1000 mg IM today Pre-albumin is 33 (4) Hypokalemia Conclusion/Plan: On presentation patient's potassium is decreased at 2.8 likely secondary to intractable nausea vomiting. Continue to replace patient's potassium IV with potassium rider and with IV fluids. TPN doesn't have enough and will give extra rider. Monitor potassium (5) Depression Conclusion/Plan: Patient has a history of depression and is on antidepressants however she is going to be strict n.p.o. while she is hospitalized and will not be receiving her antidepressants. We will continue to monitor but currently she appears to be stable. She just wants to make sure we give her xanax as scheduled at home. Qualifiers: Depression Type: unspecified Qualified Code(s): F32.9 - Major depressive disorder, single episode, unspecified
[2017-11-17 13:27] LABS: % IRON SATURATION 13 % (20-50); IRON 31 ug/dL (28-170); TOTAL IRON BINDING CAPACITY 234 ug/dL (250-450); TRANSFERRIN 167 mg/dL (192-382)
[2017-11-17] MEDS: TPN (CLINIMIX E 5/15) 2,000 ML IV SCH (20:28)
[2017-11-17] MEDS: FAT EMULSION 20% 250 ML IV SCH (20:29)
[2017-11-17] MEDS: diphenhydrAMINE INJ 50 MG/ML VIAL IVP PRN (22:41)
[2017-11-17] MEDS: SCOPOLAMINE PATCH TOP SCH (23:58)
[2017-11-18] MEDS: INSULIN REGULAR HUMAN 100 UNIT/1 ML 10 ML MDV SUBQ SCH ×4 (01:33→17:58)
[2017-11-18] MEDS: metroNIDAZOLE 500 MG/100 ML 500 MG/100 ML BAG IV SCH ×2 (01:34→08:54)
[2017-11-18] MEDS: LORazepam 2 MG/ML VIAL IVP PRN ×4 (02:54→15:10)
[2017-11-18] MEDS: PANTOPRAZOLE 40 MG VIAL IVP SCH (06:05)
[2017-11-18] MEDS: SODIUM CHLORIDE FLUSH 0.9% 10 ML SYRINGE IVP PRN ×7 (06:05→18:24)
[2017-11-18 06:52] LABS: BASOPHILS % (AUTO) 0.2 %; EOSINOPHILS # (AUTO) 0.1 10^3/uL (0.0-0.7); EOSINOPHILS % (AUTO) 0.7 %; HGB - HEMOGLOBIN 12.7 g/dL (12.0-16.0); LYMPHOCYTES # (AUTO) 3.1 10^3/uL (1.5-3.5); LYMPHOCYTES % (AUTO) 32.3 %; MEAN CORPUSCULAR HEMOGLOBIN 33.8 pg (27.0-31.0); MEAN CORPUSCULAR HGB CONC 32.9 g/dL (32.0-36.0); MEAN CORPUSCULAR VOLUME 102.9 fL (81.0-99.0); MEAN PLATELET VOLUME 9.6 fL (7.9-10.8); MONOCYTES # (AUTO) 0.7 10^3/uL (0.0-1.0); MONOCYTES % (AUTO) 7.7 %; NEUTROPHILS # (AUTO) 5.6 10^3/uL (1.5-6.6); NEUTROPHILS % (AUTO) 59.1 %; PLT - PLATELET COUNT 167 10^3/uL (130-450); RED BLOOD COUNT 3.75 10^6/uL (4.20-5.40); RED CELL DISTRIBUTION WIDTH 14.5 % (12.0-15.0); WHITE BLOOD COUNT 9.5 x10^3/uL (4.8-10.8)
[2017-11-18 07:08] LABS: ALBUMIN 4.1 g/dL (3.2-5.5); ALBUMIN/GLOBULIN RATIO 1.4 (1.0-2.2); ALKALINE PHOSPHATASE 68 IU/L (42-121); ALT ALANINE AMINOTRANSFERASE 39 IU/L (10-60); AST ASPARTATE AMINOTRANSFERASE 52 IU/L (10-42); BILIRUBIN,TOTAL 0.7 mg/dL (0.2-1.0); BUN - BLOOD UREA NITROGEN 11 mg/dL (6-20); CALCIUM 8.7 mg/dL (8.5-10.3); CARBON DIOXIDE - CO2 27 mmol/L (21-32); CHLORIDE 105 mmol/L (101-111); CREATININE 0.4 mg/dL (0.4-1.0); GFR - MDRD 180 (>89); GLUCOSE 104 mg/dL (70-100); PHOSPHORUS 3.7 mg/dL (2.5-4.6); PREALBUMIN 40 mg/dL (18-45); SODIUM 140 mmol/L (135-145)
[2017-11-18 07:09] LABS: CRP - C-REACTIVE PROTEIN < 1.0 mg/dL (0-1.0)
[2017-11-18] MEDS: POLYETHYLENE GLYCOL 3350 17 GM PACKET PO SCH (07:37)
[2017-11-18] MEDS: azaTHIOprine 50 MG TABLET PO SCH (08:54)
[2017-11-18] MEDS: ALPRAZolam 0.25 MG TABLET PO SCH ×3 (08:54→18:17)
[2017-11-18] MEDS: ENOXAPARIN 40 MG/0.4 ML SYRINGE SUBQ SCH (08:54)
[2017-11-18] MEDS: SODIUM CHLORIDE FLUSH 0.9% 10 ML SYRINGE IVP SCH ×2 (08:55→15:40)
[2017-11-18] MEDS: methylPREDNISolone SUCCINATE 40 MG/ML VIAL IVP SCH (08:55)
[2017-11-18] MEDS: ONDANSETRON ODT 4 MG TABLET TL PRN ×2 (09:08→16:40)
[2017-11-18] MEDS: POTASSIUM CHLOR 10 MEQ/100 ML 10 MEQ/100 ML BAG IV SCH ×2 (10:17→11:23)
[2017-11-18] MEDS: diphenhydrAMINE INJ 50 MG/ML VIAL IVP PRN ×2 (10:27→18:24)
--- NOTE | 2017-11-18 11:32 | PROVIDER PROGRESS NOTE ---
Subjective - Prog Note Date Prog Note Date: 11/18/17 Prog Note Time: 11:25 - Subjective Pt reports feeling: No change (from yesterday) Subjective: up to bathroom by herself and able to push IV pole with multiple tubing without difficulty. Current Medications - Current Medications Current Medications: Active Medications Acetaminophen (Tylenol) 650 mg PO Q4HR PRN PRN Reason: Pain 1 to 4 Last Admin: 11/15/17 16:36 Dose: 650 mg Alprazolam (Xanax) 0.5 mg PO 0800,1200,1800 [facility] Last Admin: 11/18/17 08:54 Dose: 0.5 mg Azathioprine (Imuran) 250 mg PO DAILY [facility] Last Admin: 11/18/17 08:54 Dose: 250 mg Diphenhydramine HCl (Benadryl Inj) 25 mg IVP Q6HR PRN PRN Reason: ITCHING Last Admin: 11/18/17 10:27 Dose: 25 mg Enoxaparin Sodium (Lovenox) [address] [facility] Last Admin: 11/18/17 08:54 Dose: 40 mg Ciprofloxacin (Cipro 400 Mg/200 Ml) 200 mls @ 200 mls/hr IV Q12H [facility] Last Infusion: 11/18/17 02:37 Dose: Infused Metronidazole (Flagyl 500 Mg/100 Ml) 500 mg in 100 mls @ 100 mls/hr IV Q8H [facility] Last Infusion: 11/18/17 09:55 Dose: Infused Amino Ac/Electrol/Dextrose/Calcium (Clinimix E 5%-15% Solution) 2,000 mls @ 83 mls/hr IV Q24H [facility] PRN Reason: Protocol Last Admin: 11/17/17 20:28 Dose: 83 mls/hr Fat Emulsion Intravenous (Intralipid 20%) 250 mls @ 21 mls/hr IV Q24H [facility] Last Infusion: 11/18/17 09:20 Dose: Infused Insulin Human Regular (Novolin R) 1 - 5 unit SUBQ Q6HR [facility] PRN Reason: Protocol Last Admin: 11/18/17 06:05 Dose: Not Given Lorazepam (Ativan Inj (Vial)) 0.5 mg IVP Q2H PRN PRN Reason: Anxiety Last Admin: 11/18/17 07:05 Dose: 0.5 mg Methylprednisolone (Solu-Medrol (40mg Vial)) [address] [facility] Last Admin: 11/18/17 08:55 Dose: 60 mg Morphine Sulfate/Sodium Chloride (Morphine Steam Pan Sponger (Use Steam Pan Sponger Order Set)) 0 mg IV SHEET FOLDER PRN; Protocol PRN Reason: PAIN Last Admin: 11/17/17 20:43 Dose: 50 mg Ondansetron HCl (Zofran Inj) 4 mg IVP Q6HR PRN PRN Reason: Nausea / Vomiting Last Admin: 11/17/17 23:49 Dose: 4 mg Ondansetron HCl (Zofran Odt) 4 mg TL Q6HR PRN PRN Reason: Nausea / Vomiting Last Admin: 11/18/17 09:08 Dose: 4 mg Pantoprazole Sodium (Protonix) [address] [facility] Last Admin: 11/18/17 06:05 Dose: 40 mg Sumatriptan 20 Mg 1 each HAN ONCE PRN PRN Reason: HEADACHE Stop: 12/15/17 00:27 Humira 40 Mg [address] [facility] Last Admin: 11/17/17 09:49 Dose: 1 each Polyethylene Glycol (Miralax) [address] [facility] Last Admin: 11/18/17 07:37 Dose: Not Given Promethazine HCl (Phenergan Inj) 25 mg IM Q6HR PRN PRN Reason: Nausea / Vomiting Scopolamine HBr (Transderm-Scop) [address] [facility] Last Admin: 11/17/17 23:58 Dose: Not Given Sodium Chloride (Normal Saline Flush 0.9%) 10 ml IVP PRN PRN PRN Reason: NEEDED PER PROVIDER ORDERS Last Admin: 11/18/17 10:27 Dose: 10 ml Sodium Chloride (Normal Saline Flush 0.9%) 10 ml IVP 0100,0900,1700 [facility] Last Admin: 11/18/17 08:55 Dose: 10 ml Sertraline HCl [Zoloft] 100 mg PO QPM 10/22/13 Alprazolam [Xanax] 1.5 mg PO QPM 10/24/14 Famotidine [Pepcid] 20 mg PO BID 10/24/14 Folic Acid 1 mg PO DAILY 10/24/14 Gabapentin 1,800 mg PO QPM 10/24/14 Ondansetron Odt [Zofran Odt] 8 mg PO QID 10/24/14 Pantoprazole [Protonix] 40 mg PO QDAC 10/24/14 Adalimumab [Humira] 40 mg SQ Q7D 10/17/16 Azathioprine 250 mg PO DAILY 10/17/16 SUMAtriptan [Sumatriptan] 20 mg HAN ONCE PRN MDD 40 10/17/16 oxyCODONE [Roxicodone] 10 mg PO QID 10/17/16 Budesonide [Budesonide EC] 9 mg PO DAILY 12/12/16 Diphenoxylate/Atropine [Lomotil] 2 each PO QID PRN 12/12/16 HYDROmorphone [Dilaudid] 2 mg PO Q6H 12/12/16 Promethazine [Phenergan] 25 mg PO TID 12/13/16 Epinephrine [Epipen 2-Jonn] 0.3 mg IM PRN PRN 11/14/17 Scopolamine 1 each TD Q72H 11/14/17 Ursodiol 600 mg PO BID 11/14/17 ALPRAZolam [Alprazolam] 0.5 mg PO 0800,1300,1800 11/15/17 Gabapentin 600 mg PO 0800,1400 11/15/17 SUMAtriptan [Imitrex] 25 mg PO ONCE PRN MDD 50 MG 11/15/17 Scopolamine Patch [Transderm-Scop] 1 patch TOP Q3D PRN 11/15/17 predniSONE [Prednisone] 3 mg PO DAILY 11/15/17 Objective - Vital Signs/Intake & Output Reviewed Vital Signs: Yes Vital Signs: Vital Signs x48h Temp Pulse Resp BP Pulse Ox 11/18/17 08:00 36.8 C 68 20 126/61 94 11/18/17 06:03 16 Intake & Output: Intake & Output 11/15/17 11/16/17 11/17/17 11/18/17 23:59 23:59 23:59 23:59 Intake Total 2493.000 3083.266 4824.167 750 Balance 2493.000 3083.266 4824.167 750 - Objective General Appearance: positive: Alert, Other (cushinoid and BMI 40.5) Eyes Bilateral: positive: PERRL ENT: positive: Pharynx nml Neck: positive: No JVD. negative: Stiff neck Respiratory: positive: Chest non-tender. negative: Wheezes, Rales, Rhonchi Cardiovascular: positive: Regular rate & rhythm. negative: Gallop/S4, Friction rub Abdomen: positive: Non-tender, No organomegaly, Nml bowel sounds, No distention Skin: positive: Warm, Dry Extremities: positive: Non-tender, Full ROM, No pedal edema Neurologic/Psychiatric: positive: Oriented x3, CN's nml (2-12), Motor nml - Lab Results Fish Bones: 11/18/17 06:35 11/18/17 06:35 Other Labs: Lab Results x24hrs 11/18/17 11/18/17 11/18/17 Range/Units 06:35 06:35 06:35 WBC 9.5 (4.8-10.8) x10^3/uL RBC 3.75 L (4.20-5.40) 10^6/uL Hgb 12.7 (12.0-16.0) g/dL Hct 38.6 (37.0-47.0) % MCV 102.9 H (81.0-99.0) fL MCH 33.8 H (27.0-31.0) pg MCHC 32.9 (32.0-36.0) g/dL RDW 14.5 (12.0-15.0) % Plt Count 167 (130-450) 10^3/uL MPV 9.6 (7.9-10.8) fL Neut # 5.6 (1.5-6.6) 10^3/uL Lymph # 3.1 (1.5-3.5) 10^3/uL Apache # 0.7 (0.0-1.0) 10^3/uL Eos # 0.1 (0.0-0.7) 10^3/uL Baso # 0.0 (0.0-0.1) 10^3/uL Absolute Nucleated RBC 0.00 x10^3/uL Nucleated RBC % 0.0 /100WBC ESR 8 (0-20) mm/Hr Sodium 140 (135-145) mmol/L Potassium 3.4 L (3.5-5.0) mmol/L Chloride 105 (101-111) mmol/L Carbon Dioxide 27 (21-32) mmol/L Anion Gap 8.0 (6-13) BUN 11 (6-20) mg/dL Creatinine 0.4 (0.4-1.0) mg/dL Estimated GFR (MDRD) 180 (>89) Glucose 104 H (70-100) mg/dL POC Whole Bld Glucose (70 - 100) mg/dL Calcium 8.7 (8.5-10.3) mg/dL Phosphorus 3.7 (2.5-4.6) mg/dL Magnesium 2.0 (1.7-2.8) mg/dL Iron (28-170) ug/dL TIBC (250-450) ug/dL % Saturation (20-50) % Transferrin (192-382) mg/dL Ferritin (11.0-306.8) ng/mL Total Bilirubin 0.7 (0.2-1.0) mg/dL AST 52 H (10-42) IU/L ALT 39 (10-60) IU/L Alkaline Phosphatase 68 (42-121) IU/L C-Reactive Protein < 1.0 (0-1.0) mg/dL Total Protein 7.0 (6.7-8.2) g/dL Albumin 4.1 (3.2-5.5) g/dL Globulin 2.9 (2.1-4.2) g/dL Albumin/Globulin Ratio 1.4 (1.0-2.2) Prealbumin 40 (18-45) mg/dL Triglycerides 199 H ( - 149) mg/dL 11/18/17 11/18/17 11/17/17 Range/Units 06:04 00:07 17:03 WBC (4.8-10.8) x10^3/uL RBC (4.20-5.40) 10^6/uL Hgb (12.0-16.0) g/dL Hct (37.0-47.0) % MCV (81.0-99.0) fL MCH (27.0-31.0) pg MCHC (32.0-36.0) g/dL RDW (12.0-15.0) % Plt Count (130-450) 10^3/uL MPV (7.9-10.8) fL Neut # (1.5-6.6) 10^3/uL Lymph # (1.5-3.5) 10^3/uL Apache # (0.0-1.0) 10^3/uL Eos # (0.0-0.7) 10^3/uL Baso # (0.0-0.1) 10^3/uL Absolute Nucleated RBC x10^3/uL Nucleated RBC % /100WBC ESR (0-20) mm/Hr Sodium (135-145) mmol/L Potassium (3.5-5.0) mmol/L Chloride (101-111) mmol/L Carbon Dioxide (21-32) mmol/L Anion Gap (6-13) BUN (6-20) mg/dL Creatinine (0.4-1.0) mg/dL Estimated GFR (MDRD) (>89) Glucose (70-100) mg/dL POC Whole Bld Glucose 109 H 113 H 149 H (70 - 100) mg/dL Calcium (8.5-10.3) mg/dL Phosphorus (2.5-4.6) mg/dL Magnesium (1.7-2.8) mg/dL Iron (28-170) ug/dL TIBC (250-450) ug/dL % Saturation (20-50) % Transferrin (192-382) mg/dL Ferritin (11.0-306.8) ng/mL Total Bilirubin (0.2-1.0) mg/dL AST (10-42) IU/L ALT (10-60) IU/L Alkaline Phosphatase (42-121) IU/L C-Reactive Protein (0-1.0) mg/dL Total Protein (6.7-8.2) g/dL Albumin (3.2-5.5) g/dL Globulin (2.1-4.2) g/dL Albumin/Globulin Ratio (1.0-2.2) Prealbumin (18-45) mg/dL Triglycerides ( - 149) mg/dL 11/17/17 11/17/17 11/17/17 Range/Units 11:26 07:07 07:07 WBC (4.8-10.8) x10^3/uL RBC (4.20-5.40) 10^6/uL Hgb (12.0-16.0) g/dL Hct (37.0-47.0) % MCV (81.0-99.0) fL MCH (27.0-31.0) pg MCHC (32.0-36.0) g/dL RDW (12.0-15.0) % Plt Count (130-450) 10^3/uL MPV (7.9-10.8) fL Neut # (1.5-6.6) 10^3/uL Lymph # (1.5-3.5) 10^3/uL Apache # (0.0-1.0) 10^3/uL Eos # (0.0-0.7) 10^3/uL Baso # (0.0-0.1) 10^3/uL Absolute Nucleated RBC x10^3/uL Nucleated RBC % /100WBC ESR (0-20) mm/Hr Sodium (135-145) mmol/L Potassium (3.5-5.0) mmol/L Chloride (101-111) mmol/L Carbon Dioxide (21-32) mmol/L Anion Gap (6-13) BUN (6-20) mg/dL Creatinine (0.4-1.0) mg/dL Estimated GFR (MDRD) (>89) Glucose (70-100) mg/dL POC Whole Bld Glucose 150 H (70 - 100) mg/dL Calcium (8.5-10.3) mg/dL Phosphorus (2.5-4.6) mg/dL Magnesium (1.7-2.8) mg/dL Iron 31 (28-170) ug/dL TIBC 234 L (250-450) ug/dL % Saturation 13 L (20-50) % Transferrin 167 L (192-382) mg/dL Ferritin 24.6 (11.0-306.8) ng/mL Total Bilirubin (0.2-1.0) mg/dL AST (10-42) IU/L ALT (10-60) IU/L Alkaline Phosphatase (42-121) IU/L C-Reactive Protein (0-1.0) mg/dL Total Protein (6.7-8.2) g/dL Albumin (3.2-5.5) g/dL Globulin (2.1-4.2) g/dL Albumin/Globulin Ratio (1.0-2.2) Prealbumin (18-45) mg/dL Triglycerides ( - 149) mg/dL ABX Reporting Has patient been on IV antibiotics over the past 48 hours?: Yes Assessment/Plan - Problem List (1) Colitis Impression: Patient presented with progressively worsening abdominal pain, nausea and diarrhea over the last 6 weeks. Patient has gotten to a point where she is not able to keep even water down. The patient's pain is uncontrolled. This is a change from the last year where she's relatively quiescent disease. She does have occasional blood in her stool, but this last week it has been much, much more voluminous. On presentation however she does not have a leukocytosis. She does not have any fevers. The patient's CT scan of the abdomen is consistent with colitis, likely infectious colitis. The patient did get a short course of oral ciprofloxacin about 5 weeks ago with which she did have stabilization of her symptoms but admits that she was not always able to keep the antibiotics down. It appears the patient likely has an infectious colitis that has exacerbated her Crohn's disease. Given the patient is immunosuppressed secondary to her Crohn's and immunosuppressive medication we will be aggressive with treatment of infectious colitis. I did try to call Dr. Lira 11/16 who is her GI doc. But he is out until November 30. I asked for his RN or one of his colleagues instead, and unfortunately, they couldn't review the case because the main banquet server on call for their medical records has been down since 7:30 am and they won't know anything about her. They asked to call back Sunday if she's still here. She is steadily improving from admission. Less nausea, pain controlled, and no diarrhea. Plan: N.p.o. except for clear liquids IV fluids Change to po cipro and flagyl from IV Stool cultures have been ordered but no BM yet. Monitor closely electrolytes much much better today, except for K, plan for dc on Sunday to home with TPN. (2) Crohn's colitis Conclusion/Plan: Patient appears to have exacerbation of her Crohn's disease in the setting of an infectious colitis. The patient has been having increasing abdominal pain, bloody diarrhea and intractable nausea and vomiting. Patient has been unable to get adequate oral intake and has become increasingly dehydrated. The patient 's pain is uncontrolled that she is unable to keep down her pain medications. Plan: No solid food for bowel rest IV fluids Change to po cipro and flagyl to treat infectious colitis IV Solu-Medrol 60 mg daily to treat Crohn's disease, but ask her what oral dose of steroids she uses and change to that Continue home dose of Humira and azathioprine PICC line put in 11/16 for nutritional supplementation with TPN TPN started 11/16 pm SHEET FOLDER with morphine for pain control was not basal rate and that was corrected Start oral meds and reduce SHEET FOLDER rate today with goal of stopping SHEET FOLDER tonight. Qualifiers: Digestive disease complication type: other complication Qualified Code(s): K50.118 - Crohn's disease of large intestine with other complication (3) Caloric malnutrition Conclusion/Plan: The patient has had severe caloric malnutrition especially over the last 6 weeks. It is progressed to the point where the patient cannot keep down even water. Prior to that she was keeping down about 25% of her food. This is likely secondary to her Crohn's exacerbation and infectious colitis. For now while the patient is being treated for her Crohn's and infectious colitis we need to ensure that she gets adequate nutrition. Plan: PICC line already placed 11/16 Nutrition consult for TPN done and TPN started. We are watching Phos in her since she tends to go high. K is low and TPN bag only has 60 meq, we added K, phos, calcium yesterday. Today she just needs extra K Iron and ferritin checked and no infusion needed since their values are low normal given Vit B12 1000 mg IM 11/17 Pre-albumin is 33 (4) Hypokalemia Conclusion/Plan: On presentation patient's potassium is decreased at 2.8 likely secondary to intractable nausea vomiting. Continue to replace patient's potassium IV with potassium rider and with IV fluids. TPN doesn't have enough and has been given extra rider yesterday and more will be given today Monitor potassium (5) Depression Conclusion/Plan: Patient has a history of depression and is on antidepressants however she is going to be strict n.p.o. while she is hospitalized and will not be receiving her antidepressants. We will continue to monitor but currently she appears to be stable. She just wants to make sure we give her xanax as scheduled at home. Qualifiers: Depression Type: unspecified Qualified Code(s): F32.9 - Major depressive disorder, single episode, unspecified
[2017-11-18] MEDS: MORPHINE PCA 50 MG IV PRN (11:34)
[2017-11-18] MEDS: CIPROFLOXACIN 400 MG/200 ML 200 ML IV SCH (12:28)
[2017-11-18] MEDS: CIPROFLOXACIN 250 MG TABLET PO SCH ×2 (16:40→21:19)
[2017-11-18] MEDS: metroNIDAZOLE 250 MG TABLET PO SCH (16:40)
[2017-11-18] MEDS: oxyCODONE 5 MG TABLET PO PRN (16:40)
[2017-11-18] MEDS ORDERED: BUDESONIDE 3 MG CAPSULE PO SCH (17:00)
[2017-11-18] MEDS: FAT EMULSION 20% 250 ML IV SCH (18:18)
[2017-11-18] MEDS: TPN (CLINIMIX E 5/15) 2,000 ML IV SCH (18:18)
[2017-11-18] MEDS ORDERED: ALPRAZolam 0.25 MG TABLET PO SCH (22:00)
[2017-11-19] MEDS: SODIUM CHLORIDE FLUSH 0.9% 10 ML SYRINGE IVP SCH (00:40)
[2017-11-19] MEDS: ONDANSETRON ODT 4 MG TABLET TL PRN (00:40)
[2017-11-19] MEDS: metroNIDAZOLE 250 MG TABLET PO SCH (00:40)
[2017-11-19] MEDS: oxyCODONE 5 MG TABLET PO PRN (00:40)
[2017-11-19] MEDS: ACETAMINOPHEN 325 MG TABLET PO PRN (00:47)
[2017-11-19] MEDS: INSULIN REGULAR HUMAN 100 UNIT/1 ML 10 ML MDV SUBQ SCH ×2 (00:47→06:25)
[2017-11-19] MEDS: diphenhydrAMINE INJ 50 MG/ML VIAL IVP PRN (00:51)
[2017-11-19] MEDS ORDERED: LORazepam 0.5 MG TABLET PO SCH (03:07)
[2017-11-19] MEDS ORDERED: LORazepam 0.5 MG TABLET ONE (03:27)
[2017-11-19] MEDS: SODIUM CHLORIDE FLUSH 0.9% 10 ML SYRINGE IVP PRN (06:26)
[2017-11-19] MEDS: PANTOPRAZOLE 40 MG VIAL IVP SCH (06:26)
[2017-11-19 06:58] LABS: BASOPHILS # (AUTO) 0.1 10^3/uL (0.0-0.1); BASOPHILS % (AUTO) 0.6 %; EOSINOPHILS # (AUTO) 0.1 10^3/uL (0.0-0.7); EOSINOPHILS % (AUTO) 0.7 %; HGB - HEMOGLOBIN 12.5 g/dL (12.0-16.0); MEAN CORPUSCULAR HEMOGLOBIN 33.5 pg (27.0-31.0); MEAN CORPUSCULAR HGB CONC 32.6 g/dL (32.0-36.0); MEAN CORPUSCULAR VOLUME 102.8 fL (81.0-99.0); MEAN PLATELET VOLUME 9.9 fL (7.9-10.8); NEUTROPHILS % (AUTO) 62.7 %; PLT - PLATELET COUNT 178 10^3/uL (130-450); RED BLOOD COUNT 3.74 10^6/uL (4.20-5.40); RED CELL DISTRIBUTION WIDTH 14.3 % (12.0-15.0); WHITE BLOOD COUNT 11.2 x10^3/uL (4.8-10.8)
[2017-11-19 07:15] LABS: ALBUMIN 4.4 g/dL (3.2-5.5); ALBUMIN/GLOBULIN RATIO 1.5 (1.0-2.2); ALKALINE PHOSPHATASE 70 IU/L (42-121); ALT ALANINE AMINOTRANSFERASE 41 IU/L (10-60); AST ASPARTATE AMINOTRANSFERASE 53 IU/L (10-42); BILIRUBIN,TOTAL 0.8 mg/dL (0.2-1.0); BUN - BLOOD UREA NITROGEN 13 mg/dL (6-20); CALCIUM 8.8 mg/dL (8.5-10.3); CARBON DIOXIDE - CO2 27 mmol/L (21-32); CHLORIDE 102 mmol/L (101-111); CREATININE 0.5 mg/dL (0.4-1.0); GFR - MDRD 139 (>89); GLUCOSE 91 mg/dL (70-100); MAGNESIUM 2.1 mg/dL (1.7-2.8); PHOSPHORUS 3.8 mg/dL (2.5-4.6); SODIUM 137 mmol/L (135-145); TOTAL PROTEIN 7.3 g/dL (6.7-8.2)
[2017-11-19 07:16] LABS: CRP - C-REACTIVE PROTEIN < 1.0 mg/dL (0-1.0)
[2017-11-19 07:44] VITALS: BP 113/71
--- NOTE | 2017-11-19 08:32 | Discharge Plan ---
Discharge Plan Disposition: Home, Self Care Condition: Stable Prescriptions: Ciprofloxacin HCl [Cipro] 500 mg PO BID #6 tablet Metronidazole [Flagyl] 500 mg PO TID #9 tablet Prednisone 5 mg PO UD #50 tablet TPN (Clinimix 5/15) [Clinimix 5%-15% Solution] 2,000 ml IV TPN/PPN #30 bag Diet: Regular Activity Restrictions: Activity as Tolerated Shower Restrictions: No Driving Restrictions: No Instruction Topics: Colitis Ulcerative, Colitis Ulcerative Dc, Colitis Ulcerative Lifestyle, Colitis Ulcerative Meds Additional Instructions or Follow Up instructions: You were admitted with severe abdominal pain, inability to eat for close to 6 weeks, intermittent bloody diarrhea, and intermittent vomiting all because of Crohn's colitis flare. We also treated you as an infectious colitis with antibiotics. You have 3 more days of antibiotics to take before you are complete with your therapy. Because you have been unable to eat and keep food down, we have started you on total parenteral nutrition. While here you were allowed to eat ice, popsicles but no solid food. Over 3 days, your pain became controlled and your electrolytes were normalized. We did evaluated you for malabsorption. We did not have to give you iron since your lab values were on the low end of normal. We did give you one 1000 mg IM injection of B12. At home , you can slowly start to resume eating but we would recommend starting with clear liquids first. Over a few days start advancing your diet. Hopefully, your abdominal pain will not come back during this, and your daily TPN can stop. You were also on IV steroids to help control the flare Please discuss with Dr. Lira, your Gatroenterologist, how much longer he wants you to stay on prednisone. You were discharged on your usual budesonide. While here, you did not have any diarrhea. As such we were not able to send off stool studies. If you do get diarrhea back, we will need to do a stool sample. Please notify Dr. Oconnor or Dr. Parrish so they can send a lab order in [address] [place] [address]. No Smoking: If you smoke, Please STOP! Call for help.
--- NOTE | 2017-11-20 08:35 | DISCHARGE SUMMARY ---
Physician: Marla Florez MD DATE OF ADMISSION: 11/15/2017 DATE OF DISCHARGE: 11/19/2017 DISCHARGE DIAGNOSES 1. Presumed infectious colitis. 2. Crohn's colitis. 3. Caloric malnutrition. 4. Electrolyte disturbance with hypokalemia, hypophosphatemia, hypomagnesemia, and hypocalcemia. 5. Depression, with adjustment disorder. 6. Drug-induced dystonia. DISCHARGE MEDICATIONS 1. Humira 40 mg subcu every 7 days. 2. Xanax 1.5 mg at night before she goes to bed and 0.5 mg at 0800, 1300, and 1800. 3. Azathioprine 250 mg daily. 4. Budesonide 9 mg daily. 5. Cipro 500 mg p.o. b.i.d. for 3 more days. 6. Flagyl 500 mg p.o. t.i.d. for 3 more days. 7. Lomotil 2 tablets every day as needed for diarrhea. 8. EpiPen daily as needed for anaphylactic reaction. 9. Pepcid 20 mg p.o. b.i.d. 10. Folic acid 1 mg daily. 11. Gabapentin 1800 mg daily at night and 600 mg p.o. at 0800 hours and 1400. 12. Dilaudid 2 mg at night. This is recommended by her primary care provider in order to avoid increased use of her oxycodone, which is 10 mg p.o. q.i.d. p.r.n. 13. Zofran 8 mg p.o. q.i.d. p.r.n. nausea. 14. Protonix 40 mg p.o. daily. 15. Prednisone 5 mg tablets. Take 6 tablets a day until she contacts Dr. Lira and sees how fast he wants to taper her. 16. Phenergan 25 mg p.o. t.i.d. p.r.n. nausea. 17. Scopolamine patch every 3 days as needed for nausea. 18. Zoloft 100 mg p.o. q.p.m. 19. Sumatriptan 20 mg nasally as needed for headache. 20. TPN via CLINIMIX 2000 mL bag daily until stopped by Dr. Lira. 21. Ursodiol 600 mg p.o. b.i.d. PRINCIPAL PROCEDURES 1. Abdomen and pelvis CT with colitis involving the distal 1/3 of the transverse bowel, descending colon, and sigmoid colon. Differential diagnosis includes infectious or ischemic colitis. With regards to the latter, there is no celiac or SMA stenosis or occlusion. RUTHIE valves are widely patent. She is status post cholecystectomy without pathologic biliary ductal dilatation. Prior appendectomy. Severe hepatic steatosis and at least moderate hepatomegaly. 2. Chest x-ray for PICC line shows no acute cardiopulmonary process and the PICC line is in place. HOSPITAL COURSE: She is a 37-year-old female who has a long history of Crohn's disease for the last 12 years and she has developed cushingoid appearance because of chronic steroids, and is currently on Humira and azathioprine. She has had primary biliary cholangitis, osteoporosis, and intermittent secondary diabetes as a complication of her treatment. She has subsequent migraine headaches and she has had bilateral hip fractures. She presents to the emergency room with 6 weeks of abdominal pain, bloody diarrhea, and nausea and vomiting. Initially her symptoms started with increasing diarrhea up to 15 times a day. Then the vomiting started. She has always had a little bit of blood in her stool, but blood has been increasing on a daily basis. The day before admission was the largest amount of blood she has had in her stool in a while. She spoke to her brick machine operator, who felt that she may have gastroenteritis with Norovirus and gave her a course of oral Cipro. That was about 3-4 weeks ago. Initially she stabilized and seemed to improve with the Cipro, but never got entirely better. As soon as she stopped the Cipro, the symptoms got worse. She increased her steroids, then tapered them down. Again stabilized some symptoms, but never went away, and symptoms got worse again when steroids came down to normal. She has had decreasing p.o. intake. At first she was able to keep down liquids, eat about 75% of her meals. Over the last few days she can only keep down a few sips of water and she is miserable with the diffuse abdominal pain and nausea. She denies fever or chills. She has become increasingly weak and barely has enough energy to get out of bed. She has been increasing oral pain medication over the last week, but it has been for naught. Unfortunately, she will then have emesis and vomit the pills that she just finished taking. The patient did speak with her brick machine operator earlier in the week to see if he could set up a PICC line and TPN as an outpatient. However, he suggested she go to the Emergency Department since this would be too difficult for him to do. In the emergency room, she was afebrile with a heart rate of 92 and normotensive, in no respiratory distress. She is a moderately overweight, cushingoid young white female. Abdominal exam has diffuse tenderness, but has normal bowel sounds. No rebound or guarding. Her lab work showed normal white cell count, no anemia, and electrolytes showed a potassium of 2.8. Bilirubin was slightly elevated at 1.3. CT of the abdomen and pelvis was as above. Colitis was evident. The patient was admitted to the hospital to be treated as possible infectious colitis. PICC line was placed and she was given IV steroids, IV Cipro, IV Flagyl. The last bowel movement she had was the day before admission. She did not have any bloody diarrhea during her stay. She was made n.p.o., given IV fluids. TPN was started on day #2 of hospitalization. All of her electrolyte abnormalities that she developed with a low potassium, low magnesium, low phosphorus and low calcium were corrected with IV supplementation or her TPN. Pain was controlled with a morphine MEDICAL PRACTICE ASSISTANT at 1 mg per hour. The patient was able to stop vomiting, keep sips of water down, and gradually all of her abdominal pain dissipated so that on discharge she had a normal abdominal exam with no pain whatsoever. Normal bowel sounds. One complication during her stay was that of dystonia. She had received Compazine around 9 in the morning. By 5-6 in the evening, she started developing a neck spasm, then involuntary head turning with tremors of the face and also tremors of the vocal cords in that she had a tremulous voice and was losing her voice. She responded promptly to Benadryl. As such, she should not receive any more Compazine. I attempted to call Dr. Lira. This was on 11/16/2017. However, his office explained to me that their websphere process server developer went down that morning. No medical records were available to be reviewed. Dr. Lira was not in the office. They felt that on Sunday nothing could be done to discuss this case. As such, I am asking the patient to please follow up with Dr. Lira this week. I am sending her home on prednisone high dose and to taper over the next few days at a rate that Dr. Lira feels is appropriate. I am also sending her home to finish metronidazole and Cipro orally. She was transitioned to oral medications the day before discharge. Abdominal pain was controlled, nausea was controlled, and she had no emesis. She is still not eating food. She will be sent home on TPN. Start drinking clear liquids. Increase her p.o. intake as tolerated while she is on TPN, until finally she could be on a regular diet with TPN being discontinued. I do not know if Dr. Lira will follow her for this or Dr. Oconnor will follow her for this. No new medications other than the Cipro, Flagyl and prednisone were prescribed at discharge. She is discharged in stable condition. PHYSICAL EXAMINATION VITAL SIGNS: Temperature of 36.5, pulse 75, respirations 16. She is 113/71 blood pressure and 97% on room air. GENERAL: She is a short-statured, moderately overweight young white female who looks older than stated age with a cushingoid appearance. She is ambulating in the room with IV pole and able to speak on the phone, get up to go to the bathroom, get back in bed with minimal assistance with the tubing. She has no ataxia. No increased respiratory effort. NECK: Supple. LUNGS: Completely clear to auscultation and percussion. HEART: PMI is normally placed with a regular rate and rhythm. ABDOMEN: Soft, a little bit tender diffusely but mainly a 1/10, as opposed to the 4-5/10 she had on a daily basis. Quiet bowel sounds are intact. ANKLES: Minimal edema. Greater than 30 minutes was spent in coordinating discharge. TD: 11/19/2017 17:59
== END 2017-11-19 09:27 | disposition home or self-care (01) | DRG 391 ==
LOC: ED 21:11 → MS2 11-15 00:34
PROVIDERS: ADMIT Internal Medicine; ATTEND Specialist
PROC: 02HV33Z Insertion of Infusion Device into Superior Vena Cava, Percutaneous Approach (ICD-10-PCS; principal; 2017-11-15)
DX: A08.8 Other specified intestinal infections (principal); E43 Unspecified severe protein-calorie malnutrition; K50.118 Crohn's disease of large intestine with other complication; Z68.41 Body mass index [BMI] 40.0-44.9, adult; G24.09 Other drug induced dystonia; E24.2 Drug-induced Cushing's syndrome; E87.6 Hypokalemia; F32.9 Major depressive disorder, single episode, unspecified; E83.39 Other disorders of phosphorus metabolism; E83.42 Hypomagnesemia; E83.51 Hypocalcemia; F43.20 Adjustment disorder, unspecified; Z79.52 Long term (current) use of systemic steroids; M81.0 Age-related osteoporosis without current pathological fracture; E13.9 Other specified diabetes mellitus without complications; E66.3 Overweight; T43.3X5A Adverse effect of phenothiazine antipsychotics and neuroleptics, initial encounter
CPT/HCPCS: 36415; 71045; 74177; 80053; 82306; 82607; 82728; 82746; 83036; 83540; 83605; 83630; 83690; 83735; 84100; 84134; 84466; 84478; 85025; 85610; 85651; 86140; 87493; 87798; 96365; 96375; 96376; 99284

== ENCOUNTER 2018-01-25 18:36 | Outpatient (CLI) | payer OTHER ==
--- NOTE | 2018-01-25 19:15 | XRAY Report ---
Procedure Date: 01/25/2018 Accession Number: [id number] / [id number] Procedure: XR - Chest 2 View X-Ray CPT Code: 01401 FULL RESULT: EXAM: CHEST RADIOGRAPHY EXAM DATE: 01/25/2018 06:41 PM. CLINICAL HISTORY: PRESENCE OF PICC LINE. COMPARISON: CHEST 1 VIEW 11/16/2017. TECHNIQUE: 2 views. FINDINGS: Lungs/Pleura: No focal opacities evident. No pleural effusion. No pneumothorax. Normal volumes. Mediastinum: Heart and mediastinal contours are unremarkable. Other: Left approach PICC tip projects over the upper SVC. IMPRESSION: 1. Left approach PICC tip projects over the upper SVC. 2. No evidence of lobar infiltrate or pneumothorax. RADIA
--- NOTE | 2018-01-25 19:16 | XRAY Report ---
Procedure Date: 01/25/2018 Accession Number: [id number] / [id number] Procedure: XR - Humerus LT CPT Code: FULL RESULT: EXAM: LEFT HUMERUS RADIOGRAPHY EXAM DATE: 01/25/2018 06:41 PM. CLINICAL HISTORY: PRESENCE OF PICC LINE. COMPARISON: None. TECHNIQUE: 2 views. FINDINGS: Bones: No fracture or focal bony lesion. Joints: No evidence of dislocation. Soft Tissues: Left PICC in place. IMPRESSION: 1. No fracture or focal bony lesion. 2. Left PICC is in place. RADIA
== END 2018-01-25 18:37 | disposition home or self-care (01) ==
LOC: DI 18:36
PROVIDERS: ATTEND Physician Assistant Medical
DX: Z95.9 Presence of cardiac and vascular implant and graft, unspecified (principal)
CPT/HCPCS: 71046

== ENCOUNTER 2018-02-27 19:01 | Outpatient (CLI) | payer OTHER ==
--- NOTE | 2018-02-28 00:13 | XRAY Report ---
Reason: PRESENCE OF PICC LINE Procedure Date: 02/27/2018 Accession Number: [id number] / [id number] Procedure: XR - Chest 2 View X-Ray CPT Code: 14794 FULL RESULT: EXAM: CHEST RADIOGRAPHY EXAM DATE: 02/27/2018 07:23 PM. CLINICAL HISTORY: PRESENCE OF PICC LINE. COMPARISON: 01/25/2018. TECHNIQUE: 2 views. FINDINGS: Lungs/Pleura: No focal opacities evident. No pleural effusion. No pneumothorax. Normal volumes. Mediastinum: Heart and mediastinal contours are unremarkable. Other: Left arm PICC has pulled back, with the tip now in the expected location of the left subclavian vein. IMPRESSION: Left arm PICC terminating in the expected location of the left subclavian vein. RADIA
== END 2018-02-27 19:02 | disposition home or self-care (01) ==
LOC: DI 19:01
PROVIDERS: ATTEND Physician Assistant Medical
DX: Z95.9 Presence of cardiac and vascular implant and graft, unspecified (principal)
CPT/HCPCS: 71046

== ENCOUNTER 2018-03-12 12:32 | Day surgery (SDC) | payer OTHER ==
[2018-03-12 12:51] VITALS: BP 125/77
--- NOTE | 2018-03-12 14:17 | XRAY Report ---
Reason: post op picc line left arm Procedure Date: 03/12/2018 Accession Number: [id number] / [id number] Procedure: XR - Chest for Line Placement CPT Code: FULL RESULT: EXAM: CHEST RADIOGRAPHY EXAM DATE: 03/12/2018 01:53 PM. CLINICAL HISTORY: Left PICC placement. COMPARISON: CHEST 2 VIEW 02/27/2018. TECHNIQUE: 1 view. FINDINGS: Lungs/Pleura: No focal opacities evident. No pleural effusion. No pneumothorax. Mediastinum: Within exam limitations, the cardiomediastinal contour is normal. Other: Left-sided PICC terminates in the mid SVC. IMPRESSION: Left-sided PICC terminates in the mid SVC. RADIA
== END 2018-03-12 12:33 | disposition home or self-care (01) ==
LOC: SDS 12:32
PROVIDERS: ATTEND Nurse Anesthetist, Certified Registered
PROC: 02HV33Z Insertion of Infusion Device into Superior Vena Cava, Percutaneous Approach (ICD-10-PCS; principal; 2018-03-12 13:00)
DX: Z45.2 Encounter for adjustment and management of vascular access device (principal); K56.7 Ileus, unspecified
CPT/HCPCS: 36569; C1751; 71045

== ENCOUNTER 2018-05-20 12:45 | Outpatient (CLI) | payer OTHER ==
[2018-05-20 15:48] LABS: BASOPHILS % (AUTO) 0.4 %; EOSINOPHILS # (AUTO) 0.1 10^3/uL (0.0-0.7); EOSINOPHILS % (AUTO) 1.4 %; HGB - HEMOGLOBIN 12.9 g/dL (12.0-16.0); LYMPHOCYTES # (AUTO) 2.8 10^3/uL (1.5-3.5); MEAN CORPUSCULAR HGB CONC 33.9 g/dL (32.0-36.0); MEAN CORPUSCULAR VOLUME 100.2 fL (81.0-99.0); MEAN PLATELET VOLUME 11.2 fL (7.9-10.8); MONOCYTES # (AUTO) 0.6 10^3/uL (0.0-1.0); MONOCYTES % (AUTO) 8.5 %; NEUTROPHILS % (AUTO) 46.7 %; PLT - PLATELET COUNT 192 10^3/uL (130-450); RED CELL DISTRIBUTION WIDTH 15.6 % (12.0-15.0); WHITE BLOOD COUNT 6.5 x10^3/uL (4.8-10.8)
[2018-05-20 15:58] LABS: ALBUMIN 3.9 g/dL (3.2-5.5); ALBUMIN/GLOBULIN RATIO 1.3 (1.0-2.2); BILIRUBIN,TOTAL 0.6 mg/dL (0.2-1.0); CALCIUM 8.8 mg/dL (8.5-10.3); CREATININE 0.5 mg/dL (0.4-1.0); PHOSPHORUS 3.8 mg/dL (2.5-4.6)
== END 2018-05-20 12:46 ==
LOC: LAB.R 12:45
PROVIDERS: ATTEND Family Medicine
DX: K50.00 Crohn's disease of small intestine without complications (principal); A09 Infectious gastroenteritis and colitis, unspecified
CPT/HCPCS: 80053; 83735; 84100; 85025

== ENCOUNTER 2018-06-10 15:13 | Outpatient (CLI) | payer OTHER | END 2018-06-10 15:14 | disposition home or self-care (01) | LOC: DI 15:13 | PROVIDERS: ATTEND Family Medicine | DX: Z53.9 Procedure and treatment not carried out, unspecified reason (principal) ==

== ENCOUNTER 2018-06-19 09:01 | Outpatient (CLI) | payer OTHER ==
[2018-06-19] MEDS ORDERED: GADOBUTROL 10 MMOL/10 ML VIAL ONE (09:13)
[2018-06-19] MEDS ORDERED: GADOBUTROL 10 MMOL/10 ML VIAL IVP ONE (10:46)
--- NOTE | 2018-06-19 17:11 | MRI Report ---
Reason: PRIMARY SCLEROSING CHOLANGITIS Procedure Date: 06/19/2018 Accession Number: [id number] / [id number] Procedure: MRI - Abdomen W/WO CPT Code: FULL RESULT: EXAM: MR ABDOMEN WITH AND WITHOUT CONTRAST (MR ABDOMEN AND MRCP) EXAM DATE: 06/19/2018 09:13 AM. CLINICAL HISTORY: PRIMARY SCLEROSING CHOLANGITIS. COMPARISON: ABDOMEN/PELVIS W/ 11/14/2017 11:24 PM. MRCP/MRI 02/02/2017. TECHNIQUE: Multiplanar breath-hold T1, T2, and DWI sequences obtained through the pancreas and abdomen on an MR scanner. Dedicated 2D and 3D MRCP sequences obtained through the biliary and pancreatic ducts. Images obtained before and after administration of 10 mL Gadavist intravenous contrast. Multiphase postcontrast sequences obtained through the pancreas. Some sequences are limited by patient motion artifact. FINDINGS: Lung Bases: A 0.7 x 0.9 cm focal region of right lower lobe atelectasis, airspace disease or lung nodule. Liver: Diffuse fatty liver infiltration. No focal liver lesion. No intrahepatic biliary ductal dilatation. CBD: The CBD appears normal and measures 8 mm in diameter. Gallbladder: Prior cholecystectomy. Pancreas: Partial fatty replacement of pancreatic head and neck. No mass or ductal dilatation. The pancreatic duct measures 1-2 mm in diameter and appears normal with no stone or stricture. Spleen: Spleen was near upper limits of normal on prior CT measuring 11.1 x 4.8 x 12.9 cm, 359 cc. Splenomegaly has developed measuring 13.8 x 5.3 x 14.7 cm, 562 cc. Kidneys and Adrenals: The kidneys appear normal with no mass or hydronephrosis. There are no cysts in the kidneys. The adrenals appear normal. Bowel: The small bowel and colon appear normal with no inflammation or obstruction. Retroperitoneum: The retroperitoneal structures appear normal with no mass or lymphadenopathy. IMPRESSION: 1. Fatty liver. 2. Prior cholecystectomy. No intra or extrahepatic biliary ductal dilatation. Mild beading of intrahepatic ducts suggesting PSC was more apparent on prior MRCP 02/02/2017 when patient had better breath-holds. 3. 14.7 cm splenomegaly has developed since prior CT 11/14/2017 when spleen measured 11.1 cm. 4. A 0.7 x 0.9 cm focal region of right lower lobe atelectasis, airspace disease or lung nodule has developed since abdominal CT 11/14/2017. Consider noncontrast chest CT. RADIA
== END 2018-06-19 09:02 | disposition home or self-care (01) ==
LOC: DI 09:01
PROVIDERS: ATTEND Family Medicine
DX: K83.09 Other cholangitis (principal); K76.0 Fatty (change of) liver, not elsewhere classified; R16.1 Splenomegaly, not elsewhere classified; Z90.49 Acquired absence of other specified parts of digestive tract
CPT/HCPCS: 74183; A9585

== ENCOUNTER 2018-07-15 08:00 | Outpatient (CLI) | payer OTHER ==
[2018-07-15 13:03] LABS: BASOPHILS # (AUTO) 0.1 10^3/uL (0.0-0.1); BASOPHILS % (AUTO) 1.2 %; EOSINOPHILS # (AUTO) 0.1 10^3/uL (0.0-0.7); EOSINOPHILS % (AUTO) 0.8 %; LYMPHOCYTES # (AUTO) 1.5 10^3/uL (1.5-3.5); LYMPHOCYTES % (AUTO) 18.4 %; MEAN CORPUSCULAR HEMOGLOBIN 30.8 pg (27.0-31.0); MEAN CORPUSCULAR HGB CONC 33.4 g/dL (32.0-36.0); MEAN CORPUSCULAR VOLUME 92.3 fL (81.0-99.0); MEAN PLATELET VOLUME 9.2 fL (7.9-10.8); MONOCYTES # (AUTO) 0.5 10^3/uL (0.0-1.0); MONOCYTES % (AUTO) 6.5 %; NEUTROPHILS % (AUTO) 73.1 %; PLT - PLATELET COUNT 274 10^3/uL (130-450); RED BLOOD COUNT 3.25 10^6/uL (4.20-5.40); WHITE BLOOD COUNT 8.3 x10^3/uL (4.8-10.8)
[2018-07-15 14:12] LABS: FOLATE 8.85 ng/mL (5.90 - >24.8)
[2018-07-15 14:24] LABS: ALBUMIN 3.7 g/dL (3.2-5.5); ALKALINE PHOSPHATASE 91 IU/L (42-121); ALT ALANINE AMINOTRANSFERASE < 10 IU/L (10-60); AST ASPARTATE AMINOTRANSFERASE 19 IU/L (10-42); BILIRUBIN,TOTAL 0.6 mg/dL (0.2-1.0); BUN - BLOOD UREA NITROGEN 15 mg/dL (6-20); CALCIUM 8.8 mg/dL (8.5-10.3); CARBON DIOXIDE - CO2 24 mmol/L (21-32); CHLORIDE 100 mmol/L (101-111); CREATININE 0.6 mg/dL (0.4-1.0); CRP - C-REACTIVE PROTEIN 7.3 mg/dL (0-1.0); GFR - MDRD 112 (>89); GLUCOSE 80 mg/dL (70-100); MAGNESIUM 1.9 mg/dL (1.7-2.8); PHOSPHORUS 3.4 mg/dL (2.5-4.6); PREALBUMIN 21 mg/dL (18-45); SODIUM 135 mmol/L (135-145); TOTAL PROTEIN 7.3 g/dL (6.7-8.2)
[2018-07-17 18:37] LABS: COPPER 131 mcg/dL (70-175)
== END 2018-07-15 23:59 | disposition home or self-care (01) ==
LOC: LAB.R 08:00
PROVIDERS: ATTEND Family Medicine
DX: K50.00 Crohn's disease of small intestine without complications (principal)
CPT/HCPCS: 80053; 81599; 82306; 82525; 82607; 82746; 83735; 83921; 84100; 84134; 84255; 84446; 84478; 84590; 84630; 85025; 86140; 86735; 86762

== ENCOUNTER 2018-09-27 16:31 | Day surgery (SDC) | payer OTHER ==
--- NOTE | 2018-09-27 18:04 | ANESTHESIA PROCEDURE NOTE ---
Anesth Central Line Template - Central Line Central Line Preparation: Consent Obtained Other Info/Details: Consulted to exchange non-functional PICC line. Consent obtained. Full gown, gloves and mask used. Left arm and picc line prepped with chloroprep. The PICC line was cut and exchanged out over a wire. A 5Fr peel away sheath was inserted over the wire, wire removed. A new 5Fr double lumen catheter was trimmed to 42cm based on measurements. Catheter was advanced with ease and p-wave indicated correct placement using 3CG. Peel away sheath removed and catheter was placed with 3cm exposed, total length inside the body is 39cm. Catheter flushed easily but was unable to aspirate blood. Chest xray obtained and show the tip malpositioned and not in the SVC. The line was repositioned with positive blood return from each port. Chest xray was repeated with tip in the lower SVC. Patient was discharged to home in good condition.
--- NOTE | 2018-09-27 18:09 | XRAY Report ---
Reason: line placement Procedure Date: 09/27/2018 Accession Number: [id number] / [id number] Procedure: XR - Chest for Line Placement CPT Code: FULL RESULT: EXAM: CHEST RADIOGRAPHY EXAM DATE: 09/27/2018 05:32 PM. CLINICAL HISTORY: Line placement. COMPARISON: CHEST FOR LINE PLACEMENT 03/12/2018 1:43 PM. TECHNIQUE: 1 view. FINDINGS: Lungs/Pleura: No focal opacities evident. No pleural effusion. No pneumothorax. Mediastinum: Within exam limitations, the cardiomediastinal contour is normal. Other: Left approach PICC tip projects over the right upper chest. IMPRESSION: 1. Left approach PICC tip projects over the right upper chest. The tip is not definitely within the SVC. Repositioning recommended as indicated. 2. No acute intrathoracic plain film abnormality. RADIA
--- NOTE | 2018-09-27 18:53 | XRAY Report ---
Reason: PICC line reposition Procedure Date: 09/27/2018 Accession Number: [id number] / [id number] Procedure: XR - Chest for Line Placement CPT Code: FULL RESULT: EXAM: CHEST RADIOGRAPHY EXAM DATE: 09/27/2018 06:24 PM. CLINICAL HISTORY: PICC line reposition. COMPARISON: CHEST FOR LINE PLACEMENT 09/27/2018 5:21 PM. TECHNIQUE: 1 view. FINDINGS: Lungs/Pleura: Clear. No effusion or pneumothorax. Mediastinum: Within exam limitations, the cardiomediastinal contour is normal. Other: Left PICC tip in mid to lower SVC about 12 mm below the level of lino. IMPRESSION: Left PICC tip in mid to lower SVC. RADIA
[2018-09-30 10:58] VITALS: BP 113/81
== END 2018-09-27 23:59 | disposition home or self-care (01) ==
LOC: SDS 16:31
PROVIDERS: ATTEND Surgery
PROC: 02PYX3Z Removal of Infusion Device from Great Vessel, External Approach (ICD-10-PCS; 2018-09-27)
PROC: 02HV33Z Insertion of Infusion Device into Superior Vena Cava, Percutaneous Approach (ICD-10-PCS; principal; 2018-09-27 16:30)
DX: R63.2 Polyphagia (principal)
CPT/HCPCS: 36569; 71045

== ENCOUNTER 2018-10-01 07:34 | Day surgery (SDC) | payer OTHER ==
[2018-10-01] MEDS ORDERED: SODIUM CHLORIDE FLUSH 0.9% 10 ML SYRINGE IVP ONE (07:35)
[2018-10-01] MEDS ORDERED: ceFAZolin 2 GM/50 ML 2 GM/50 ML BAG IV ONE (07:35)
[2018-10-01] MEDS ORDERED: HYDROcod/ACETAM 5/325 MG TABLET PO ONE (07:35)
[2018-10-01 08:00] LABS: HCG UR QUAL NEGATIVE
[2018-10-01] MEDS ORDERED: BUPIVACAINE 0.5% PF 30 ML VIAL ONE (08:13)
--- NOTE | 2018-10-01 08:15 | ANESTHESIA ---
Pre-Anesthesia VS, & Labs - Diagnosis Malnutrition, hyperalimenntation - Procedure Portacath placement Vital Signs: Temp Pulse Resp BP Pulse Ox 36.5 C 79 16 113/74 94 10/01/18 07:47 10/01/18 07:47 10/01/18 07:47 10/01/18 07:47 10/01/18 07:47 Height 5 ft 3 in Weight (kg) 79.6 kg Body Mass Index 32.6 - NPO Last Fluid Intake: 0600 - Is Patient ?: No Home Medications and Allergies Home Medications: Ambulatory Orders Hyoscyamine Sulfate 0.125 mg PO TID PRN 09/30/18 Levofloxacin [Levaquin] 750 mg PO DAILY 09/30/18 Lidocaine Ointment 5% [Xylocaine Ointment 5%] 0 gm TOP ONCE PRN 09/30/18 Naloxone HCl [Evzio] 2 mg IJ ONCE PRN 09/30/18 SUMAtriptan [Imitrex] 25 mg PO ONCE PRN 09/30/18 Sertraline HCl [Zoloft] 150 mg PO QPM 10/22/13 Alprazolam [Xanax] 1.5 mg PO QPM 10/24/14 Famotidine [Pepcid] 20 mg PO BID 10/24/14 Gabapentin 1,800 mg PO QPM 10/24/14 Ondansetron Odt [Zofran Odt] 8 mg PO QID 10/24/14 Pantoprazole [Protonix] 40 mg PO QDAC 10/24/14 Adalimumab [Humira] 40 mg SQ Q7D 10/17/16 Azathioprine 250 mg PO DAILY 10/17/16 SUMAtriptan [Sumatriptan] 20 mg HAN ONCE PRN MDD 40 10/17/16 oxyCODONE [Roxicodone] 1 tab PO ONCE 10/17/16 Budesonide [Budesonide EC] 9 mg PO DAILY 12/12/16 Diphenoxylate/Atropine [Lomotil] 2 each PO QID PRN 12/12/16 Promethazine [Phenergan] 25 mg PO TID 12/13/16 EPINEPHrine [Epipen 2-Jonn] 0.3 mg IM PRN PRN 11/14/17 Ursodiol 600 mg PO BID 11/14/17 ALPRAZolam [Alprazolam] 0.5 mg PO 0800,1300,1800 11/15/17 Gabapentin 900 mg PO 0800,1400 11/15/17 Scopolamine Patch [Transderm-Scop] 1 patch TOP Q3D PRN 11/15/17 predniSONE [Prednisone] 2 mg PO DAILY 11/15/17 Hyoscyamine Sulfate 0.125 mg PO TID PRN 09/30/18 Levofloxacin [Levaquin] 750 mg PO DAILY 09/30/18 Lidocaine Ointment 5% [Xylocaine Ointment 5%] 0 gm TOP ONCE PRN 09/30/18 Naloxone HCl [Evzio] 2 mg IJ ONCE PRN 09/30/18 SUMAtriptan [Imitrex] 25 mg PO ONCE PRN 09/30/18 Allergies/Adverse Reactions: Allergies Allergy/AdvReac Type Severity Reaction Status Date / Time venom-honey bee Allergy Severe anaphylaxis Verified 11/14/17 21:16 [bee venom (honey bee)] latex Allergy Intermediate Edema Verified 11/14/17 21:16 prochlorperazine Allergy dystonia Verified 09/30/18 11:28 [From Compazine] Anes History & Medical History - Anesthetic History Anesthesia Complications: reports: No previous complications - Medical History Cardiovascular: reports: None Pulmonary: reports: None Gastrointestinal: reports: GERD, Crohn's disease (History of malnutrition) Urinary: reports: None Neuro: reports: Migraines Musculoskeletal: reports: Osteoporosis Endocrine/Autoimmune: reports: Other (on TPN) Blood Disorders: reports: Anemia Skin: reports: Other Smoking Status: Never smoker Psychosocial: reports: Other (Chronic pain, takes opioids daily) - Surgical History General: Cholecystectomy, Appendectomy, Bowel surgery, Colonoscopy Orthopedic: Other Exam General: Alert, Oriented x3, Cooperative, No acute distress Dental: WNL Mouth Openin Fingerbreadth Neck Mobility: Normal Mallampati classification: I Thyromental Distance: 4-6 cm Respiratory: Lungs clear, Normal breath sounds, No respiratory distress, No accessory muscle use Cardiovascular: Regular rate, Normal S1, Normal S2, No murmurs Mental/Cognitive Status: Alert/Oriented X3, Normal for patient Plan Anesthesia Type: MAC Consent for Procedure(s) Verified and Reviewed: Yes Code Status: Attempt Resuscitation ASA classification: 3-Severe systemic disease Is this case an emergency?: No
[2018-10-01] MEDS ORDERED: LACTATED RINGERS 1,000 ML IV ONE (08:16)
[2018-10-01] MEDS ORDERED: BUPIVACAINE 0.5% PF 30 ML VIAL SUBQ ONE ×2 (09:12)
[2018-10-01] MEDS ORDERED: PROPOFOL 200 MG/20 ML VIAL IVP ONE (09:20)
[2018-10-01] MEDS ORDERED: MIDAZOLAM 2 MG/2 ML VIAL IVP ONE (09:20)
[2018-10-01] MEDS ORDERED: ONDANSETRON 4 MG/2 ML VIAL IVP ONE (09:20)
[2018-10-01] MEDS ORDERED: LIDOCAINE-MPF 2% 5 ML VIAL IM ONE (09:20)
[2018-10-01] MEDS ORDERED: fentaNYL 100 MCG/2 ML VIAL IVP ONE (09:20)
[2018-10-01] MEDS ORDERED: ONDANSETRON 4 MG/2 ML VIAL IVP PRN (09:51)
[2018-10-01] MEDS ORDERED: HYDROcod/ACETAM 5/325 MG TABLET PO PRN (09:51)
[2018-10-01] MEDS ORDERED: HYDROmorphone 0.5 MG/0.5 ML SYRINGE IVP PRN (09:51)
--- NOTE | 2018-10-01 10:03 | OPERATIVE REPORT ---
Operative Report - General Procedure Date: 10/01/18 Planned Procedure: Double-lumen Panchal placement Pre-Op Diagnosis: Hyperalimentation needed to treat malnutrition and need for central venous Procedure Performed: Double-lumen Panchal placement in left subclavian vein position Post Op Diagnosis: Same - Procedure Note Primary Surgeon: Helder Will MD Anesthesia Provider: Justice Smith CRNA Anesthesia Technique: Local (20 mL of half percent Marcaine), MAC IV Fluids (mL): 200 Estimated Blood Loss (mL): 5 Complications: None - Other Other Information/Narrative: OPERATIVE DESCRIPTION/REPORT: After verbal and written informed consent was obtained detailing the risks of infection, bleeding requiring transfusion with its risks, nerve injury, and , and after I met with the patient confirming the surgery and the site of the surgery, the patient was brought to the operative suite and placed supine on the operating table. I had marked where her bra strap lies to avoid this area. Great care was taken to avoid pressure points to prevent pressure necrosis or nerve injury. Monitoring devices were applied along with TEDs and pneumatic compressive stockings (to prevent DVT). The patient received preoperative antibiotics for surgical prophylaxis. Justice Smith CRNA sedated and anesthetized the patient for the entire procedure. The patient was prepped and draped in the usual sterile manner. A "time in" then confirmed that the patient was identified with 3 identifiers (name, date and medical record number), the history and physical was in the chart, the signed consent confirming the procedure was in the chart, the patient was in the correct position, the aforementioned prophylactic measures were in place or given, we had the correct personnel and equipment to complete the procedure and that anesthesia, surgery and nursing were given an opportunity to express any concerns. With the agreement of everyone in the room, we proceeded with the operation. After the subclavian region was anesthetized using % marcaine and the patient placed in Trendelenberg position, a Bard Panchal 9 [place] dual lumen CV catheter with Surecuff (reference #[id number], lot #[id number], used by date 2021-01-26) was opened. The finder needle was inserted into the subclavian vein taking great care to place it just under the clavicle in order to minimize the risk of pneumothorax. When good venous blood return was obtained, the wire was placed through the needle and into the vein without difficulty. Cardiac irritability confirmed that the catheter was correctly going down towards the heart. Below and lateral to the needle insertion site, the area was anesthetized again using % marcaine and a transverse incision was made just large enough to accommodate the line. A knife was inserted along the wire to widen the insertion site and this was further dilated using a Cary. The catheter was then passed to the needle opening using the passer. The catheter was then measured against the patients anterior chest and cut so that the tip would lie 2 cm below the manubrial-sternal junction. The sure cuff was placed just beyond the skin opening on the chest wall and a 3-0 nylon suture was used to approximate the skin and secure the catheter in a Moses sandal fashion at this point. The catheter was then wiped and wrapped with a heparinized soaked 4x4. The dilator and sheath were then carefully inserted over the wire and the dilator and wire withdrawn. The catheter was then inserted into the sheath and the sheath was broken away from the catheter leaving the catheter in place in the vein. An X- ray confirmed placement of the catheter tip in the right atrium/supracardiac vena cava without pneumothorax. Both ports were accessed and good blood return as well as easy flush was noted. The skin incision was approximated with 4-0 Monocryl in a simple fashion. The skin prep was washed off and prepped with benzoin. Steristrips were applied. At this point a time out was performed that confirmed that all the counts were correct, the procedure that was performed, the blood loss, the IV fluids administered, and the patients condition. A dressing was placed on the wound. Having tolerated the procedure well, the patient was taken to short stay in good and stable condition. The patient was instructed that the Panchal could be used immediately. Nuzzel disclaimer: This document was created in part using voice recognition technology. Because of the inherent limitations of the system ([employer]'s Nuzzel Dictate user manual states that the licensee understands that speech recognition is a statistical process and that recognition errors are inherent in the process), occasional same sounding word substitutions and grammatical errors do occur and persist despite proofreading. Please read this document for context.
[2018-10-01 10:53] VITALS: BP 108/68
--- NOTE | 2018-10-01 15:24 | XRAY Report ---
Reason: PORT PLACEMENT Procedure Date: 10/01/2018 Accession Number: [id number] / [id number] Procedure: XR - Chest for Line Placement CPT Code: FULL RESULT: EXAM: CHEST RADIOGRAPHY. EXAM DATE: 10/01/2018 10:34 AM. CLINICAL HISTORY: Port placement. COMPARISON: CHEST FOR LINE PLACEMENT 09/27/2018 6:14 PM. TECHNIQUE: 1 view. FINDINGS: Tubes and lines: Left-sided PICC line tip of which is in the distal third SVC. There has been placement of a subclavian approach left-sided Panchal catheter tip of which is at the junction of the left brachiocephalic vein with the SVC. Lungs/Pleura: No focal opacities evident. No pleural effusion. No pneumothorax. Mediastinum: Within exam limitations, the cardiomediastinal contour is normal. Other: None. IMPRESSION: Tip of the left subclavian approach Panchal catheter is at the junction of brachiocephalic vein and SVC. No apparent complication. RADIA
== END 2018-10-01 07:35 | disposition home or self-care (01) ==
LOC: SDS 07:34
PROVIDERS: ATTEND Surgery
PROC: 02HV33Z Insertion of Infusion Device into Superior Vena Cava, Percutaneous Approach (ICD-10-PCS; principal; 2018-10-01 08:30)
DX: E46 Unspecified protein-calorie malnutrition (principal); E11.9 Type 2 diabetes mellitus without complications; Z87.891 Personal history of nicotine dependence; K21.9 Gastro-esophageal reflux disease without esophagitis; K50.90 Crohn's disease, unspecified, without complications
CPT/HCPCS: 36558; 81025; A9270; J0690; J7120; 71045

== ENCOUNTER 2018-10-04 15:49 | Outpatient (CLI) | payer OTHER ==
[2018-10-04 16:22] LABS: BASOPHILS # (AUTO) 0.1 10^3/uL (0.0-0.1); BASOPHILS % (AUTO) 1.3 %; EOSINOPHILS # (AUTO) 0.1 10^3/uL (0.0-0.7); EOSINOPHILS % (AUTO) 1.8 %; HGB - HEMOGLOBIN 10.9 g/dL (12.0-16.0); LYMPHOCYTES # (AUTO) 2.6 10^3/uL (1.5-3.5); LYMPHOCYTES % (AUTO) 50.2 %; MEAN CORPUSCULAR HEMOGLOBIN 30.9 pg (27.0-31.0); MEAN CORPUSCULAR HGB CONC 31.5 g/dL (32.0-36.0); MEAN CORPUSCULAR VOLUME 98.2 fL (81.0-99.0); MEAN PLATELET VOLUME 8.8 fL (7.9-10.8); MONOCYTES # (AUTO) 0.2 10^3/uL (0.0-1.0); MONOCYTES % (AUTO) 3.7 %; NEUTROPHILS # (AUTO) 2.2 10^3/uL (1.5-6.6); PLT - PLATELET COUNT 282 10^3/uL (130-450); RED BLOOD COUNT 3.53 10^6/uL (4.20-5.40); RED CELL DISTRIBUTION WIDTH 21.5 % (12.0-15.0); WHITE BLOOD COUNT 5.2 x10^3/uL (4.8-10.8)
[2018-10-04 16:40] LABS: PLATELET ESTIMATE, MANUAL NORMAL (130-450,000) (NORMAL); PLATELET MORPHOLOGY NORMAL APPEARANCE (NORMAL); RBC MORPHOLOGY (MULTIPLE) 2+ ANISOCYTOSIS (NORMAL)
[2018-10-04 17:00] LABS: % IRON SATURATION 18 % (20-50); IRON 65 ug/dL (28-170); TOTAL IRON BINDING CAPACITY 368 ug/dL (250-450); TRANSFERRIN 263 mg/dL (192-382)
== END 2018-10-04 15:50 | disposition home or self-care (01) ==
LOC: LAB 15:49
PROVIDERS: ATTEND Internal Medicine Gastroenterology
DX: K52.9 Noninfective gastroenteritis and colitis, unspecified (principal); E46 Unspecified protein-calorie malnutrition; D50.9 Iron deficiency anemia, unspecified
CPT/HCPCS: 36415; 80299; 81599; 82728; 83540; 84466; 85025

== ENCOUNTER 2018-10-24 16:10 | Outpatient (CLI) | payer OTHER ==
--- NOTE | 2018-10-25 05:49 | XRAY Report ---
Reason: MARSHALL LINE WILL NOT DROW FROM ONE OF THE PORTS Procedure Date: 10/24/2018 Accession Number: [id number] / [id number] Procedure: XR - Chest 1 View X-Ray CPT Code: 12882 FULL RESULT: EXAM: CHEST RADIOGRAPHY EXAM DATE: 10/24/2018 04:30 PM. CLINICAL HISTORY: MARSHALL LINE WILL NOT DRAW FROM ONE OF THE PORTS. COMPARISON: CHEST FOR LINE PLACEMENT 10/01/2018 9:14 AM. TECHNIQUE: 1 view. FINDINGS: Lungs/Pleura: Bronchial wall thickening. No alveolar consolidation or pleural effusion seen. No pneumothorax. Mediastinum: Within exam limitations, the cardiomediastinal contour is normal. Other: Left-sided tunneled catheter with the tip at the junction of the brachiocephalic veins. Status post cholecystectomy. IMPRESSION: 1. Mild bronchial wall thickening. This can be seen with bronchitis or reactive airways disease. 2. Left-sided Marshall catheter with tip at the junction of the brachiocephalic veins. RADIA
== END 2018-10-24 16:11 | disposition home or self-care (01) ==
LOC: DI 16:10
PROVIDERS: ATTEND Family Medicine
DX: T82.598A Other mechanical complication of other cardiac and vascular devices and implants, initial encounter (principal)
CPT/HCPCS: 71045

== ENCOUNTER 2018-10-28 12:34 | Outpatient (CLI) | payer OTHER ==
[2018-10-28] MEDS ORDERED: IOTHALAMATE MEGLUMINE 50 ML VIAL ONE ×2 (12:47→12:51)
--- NOTE | 2018-10-28 17:13 | XRAY Report ---
Reason: CHECK PATENCY FOR DOUBLE LUMEN PORT Procedure Date: 10/28/2018 Accession Number: [id number] / [id number] Procedure: FL - Fluoro Independent Procedure CPT Code: FULL RESULT: EXAM: FLUOROSCOPIC GUIDANCE EXAM DATE: 10/28/2018 01:20 PM. CLINICAL HISTORY: CHECK PATENCY FOR DOUBLE LUMEN PORT. Limited blood flow return from the white port. Red port functions normally. COMPARISON: None. Contrast: 50 cc Conray FINDINGS: Initially the white port was injected with approximately 25 cc of Conray followed by the injection of the red port with an additional 25 cc of Conray. Both ports were flushed with sterile normal saline and heparin at the end of the procedure. There is no evidence of extravasation, occlusion, or significant resistance to injection of contrast. Free flow of contrast is documented from the distal tip with both port injectionS. Fluoroscopic guidance provided for double lumen port injection. Total fluoroscopy time: 1 minute 44 seconds. Number of images: 13. IMPRESSION: Patent left subclavian dual-lumen port. RADIA
== END 2018-10-28 12:35 | disposition home or self-care (01) ==
LOC: DI 12:34
PROVIDERS: ATTEND Surgery
DX: Z45.2 Encounter for adjustment and management of vascular access device (principal)
CPT/HCPCS: 76000

== ENCOUNTER 2018-11-13 14:29 | Day surgery (SDC) | payer OTHER ==
[2018-11-14 08:17] VITALS: BP 107/72
--- NOTE | 2018-11-14 10:21 | XRAY Report ---
Reason: PICC LINE PLACEMENT Procedure Date: 11/13/2018 Accession Number: [id number] / [id number] Procedure: XR - Chest for Line Placement CPT Code: FULL RESULT: EXAM: CHEST RADIOGRAPHY EXAM DATE: 11/13/2018 03:46 PM. CLINICAL HISTORY: PICC line placement. COMPARISON: CHEST 1 VIEW 10/24/2018 4:22 PM. TECHNIQUE: 1 view. FINDINGS: Tubes and lines: There is a new right-sided PICC line, tip terminates within the upper third SVC. Stable tunneled catheter left subclavian approach tip also in the adjacent upper third SVC. Lungs/Pleura: No focal opacities evident. No pleural effusion. No pneumothorax. Mediastinum: Within exam limitations, the cardiomediastinal contour is normal. Other: None. IMPRESSION: New PICC line tip in the upper third SVC. No infiltrates. RADIA
== END 2018-11-13 14:30 | disposition home or self-care (01) ==
LOC: SDS 14:29
PROVIDERS: ATTEND Nurse Anesthetist, Certified Registered
PROC: 02HV33Z Insertion of Infusion Device into Superior Vena Cava, Percutaneous Approach (ICD-10-PCS; principal; 2018-11-13 15:00)
DX: E46 Unspecified protein-calorie malnutrition (principal); A49.02 Methicillin resistant Staphylococcus aureus infection, unspecified site
CPT/HCPCS: 36569; C1751; 71045

== ENCOUNTER 2018-12-09 08:00 | Outpatient (CLI) | payer OTHER ==
[2018-12-09 12:29] LABS: BASOPHILS % (AUTO) 0.6 %; EOSINOPHILS # (AUTO) 0.1 10^3/uL (0.0-0.7); EOSINOPHILS % (AUTO) 2.4 %; HGB - HEMOGLOBIN 10.7 g/dL (12.0-16.0); LYMPHOCYTES # (AUTO) 1.6 10^3/uL (1.5-3.5); MEAN CORPUSCULAR HEMOGLOBIN 34.9 pg (27.0-31.0); MEAN CORPUSCULAR HGB CONC 33.8 g/dL (32.0-36.0); MEAN CORPUSCULAR VOLUME 103.2 fL (81.0-99.0); MONOCYTES # (AUTO) 0.1 10^3/uL (0.0-1.0); MONOCYTES % (AUTO) 2.8 %; NEUTROPHILS # (AUTO) 1.2 10^3/uL (1.5-6.6); NEUTROPHILS % (AUTO) 39.2 %; PLT - PLATELET COUNT 194 10^3/uL (130-450); RED BLOOD COUNT 3.08 10^6/uL (4.20-5.40); RED CELL DISTRIBUTION WIDTH 17.9 % (12.0-15.0)
[2018-12-09 12:54] LABS: ALBUMIN/GLOBULIN RATIO 1.5 (1.0-2.2); ALKALINE PHOSPHATASE 62 IU/L (42-121); ALT ALANINE AMINOTRANSFERASE 11 IU/L (10-60); AST ASPARTATE AMINOTRANSFERASE 18 IU/L (10-42); BUN - BLOOD UREA NITROGEN 6 mg/dL (6-20); CALCIUM 8.8 mg/dL (8.5-10.3); CARBON DIOXIDE - CO2 24 mmol/L (21-32); CHLORIDE 105 mmol/L (101-111); CREATININE 0.7 mg/dL (0.4-1.0); GFR - MDRD 94 (>89); GLUCOSE 83 mg/dL (70-100); MAGNESIUM 1.7 mg/dL (1.7-2.8); PHOSPHORUS 3.7 mg/dL (2.5-4.6); PREALBUMIN 34 mg/dL (18-45); SODIUM 137 mmol/L (135-145); TOTAL PROTEIN 6.6 g/dL (6.7-8.2)
[2018-12-09 13:00] LABS: CRP - C-REACTIVE PROTEIN < 1.0 mg/dL (0-1.0)
[2018-12-09 14:31] LABS: VANCOMYCIN,TROUGH 29.3 ug/mL (10.0-20.0)
== END 2018-12-09 23:59 | disposition home or self-care (01) ==
LOC: LAB.R 08:00
PROVIDERS: ATTEND Family Medicine
DX: A09 Infectious gastroenteritis and colitis, unspecified (principal); B95.62 Methicillin resistant Staphylococcus aureus infection as the cause of diseases classified elsewhere
CPT/HCPCS: 80053; 80202; 83735; 84100; 84134; 84478; 85025; 86140

== ENCOUNTER 2018-12-16 08:00 | Outpatient (CLI) | payer OTHER ==
[2018-12-16 12:17] LABS: BASOPHILS % (AUTO) 0.4 %; EOSINOPHILS # (AUTO) 0.1 10^3/uL (0.0-0.7); EOSINOPHILS % (AUTO) 2.2 %; HGB - HEMOGLOBIN 10.2 g/dL (12.0-16.0); LYMPHOCYTES # (AUTO) 1.8 10^3/uL (1.5-3.5); MEAN CORPUSCULAR HEMOGLOBIN 35.9 pg (27.0-31.0); MEAN CORPUSCULAR HGB CONC 34.8 g/dL (32.0-36.0); MEAN CORPUSCULAR VOLUME 103.2 fL (81.0-99.0); MEAN PLATELET VOLUME 10.7 fL (7.9-10.8); MONOCYTES # (AUTO) 0.2 10^3/uL (0.0-1.0); MONOCYTES % (AUTO) 5.1 %; NEUTROPHILS # (AUTO) 1.4 10^3/uL (1.5-6.6); NEUTROPHILS % (AUTO) 41.3 %; PLT - PLATELET COUNT 144 10^3/uL (130-450); RED BLOOD COUNT 2.83 10^6/uL (4.20-5.40); RED CELL DISTRIBUTION WIDTH 17.7 % (12.0-15.0); WHITE BLOOD COUNT 3.5 x10^3/uL (4.8-10.8)
[2018-12-16 12:38] LABS: ALBUMIN 3.7 g/dL (3.2-5.5); ALBUMIN/GLOBULIN RATIO 1.6 (1.0-2.2); ALKALINE PHOSPHATASE 65 IU/L (42-121); ALT ALANINE AMINOTRANSFERASE < 10 IU/L (10-60); AST ASPARTATE AMINOTRANSFERASE 17 IU/L (10-42); BILIRUBIN,TOTAL 0.7 mg/dL (0.2-1.0); BUN - BLOOD UREA NITROGEN 12 mg/dL (6-20); CALCIUM 8.9 mg/dL (8.5-10.3); CARBON DIOXIDE - CO2 23 mmol/L (21-32); CHLORIDE 105 mmol/L (101-111); CREATININE 0.7 mg/dL (0.4-1.0); GFR - MDRD 94 (>89); GLUCOSE 89 mg/dL (70-100); MAGNESIUM 1.7 mg/dL (1.7-2.8); PHOSPHORUS 3.8 mg/dL (2.5-4.6); SODIUM 139 mmol/L (135-145); VANCOMYCIN,TROUGH 11.4 ug/mL (10.0-20.0)
== END 2018-12-16 23:59 | disposition home or self-care (01) ==
LOC: LAB.R 08:00
PROVIDERS: ATTEND Family Medicine
DX: A09 Infectious gastroenteritis and colitis, unspecified (principal); B95.62 Methicillin resistant Staphylococcus aureus infection as the cause of diseases classified elsewhere
CPT/HCPCS: 80053; 80202; 83735; 84100; 85025

== ENCOUNTER 2018-12-25 10:43 | Outpatient (CLI) | payer OTHER ==
[2018-12-25 11:28] LABS: VANCOMYCIN,TROUGH 4.5 ug/mL (10.0-20.0)
== END 2018-12-25 10:44 | disposition home or self-care (01) ==
LOC: LAB 10:43
PROVIDERS: ATTEND Family Medicine
DX: K50.00 Crohn's disease of small intestine without complications (principal); B95.62 Methicillin resistant Staphylococcus aureus infection as the cause of diseases classified elsewhere; A09 Infectious gastroenteritis and colitis, unspecified
CPT/HCPCS: 36415; 80202

== ENCOUNTER 2019-01-10 10:46 | Outpatient (CLI) | payer OTHER ==
--- NOTE | 2019-01-10 16:01 | Nuclear Medicine Report ---
Reason: INFLAMMATORY BOWEL DISEASE,PRIMARY SCLEROSING CHOL Procedure Date: 01/10/2019 Accession Number: [id number] / [id number] Procedure: NM - Gastric Empty Small Bowel CPT Code: FULL RESULT: EXAM: GASTRIC EMPTYING STUDY EXAM DATE: 01/10/2019 01:45 PM. CLINICAL HISTORY: INFLAMMATORY BOWEL DISEASE,PRIMARY SCLEROSING cholangitis. COMPARISON: None. TECHNIQUE: A standard meal was radiolabeled with 1 mCi Tc-99m sulfur colloid according to protocol. Following the oral administration of this meal, the patient underwent initial static images over the abdomen from the anterior and posterior projections, at approximately 0 hours following the ingestion of the meal. Subsequently, the patient expressed nausea and vomited several times and the study was therefore discontinued with no additional imaging. FINDINGS IMPRESSION: Study discontinued after initial images due to patient nausea and vomiting. Nondiagnostic study. RADIA
== END 2019-01-10 10:47 | disposition home or self-care (01) ==
LOC: DI 10:46
PROVIDERS: ATTEND Internal Medicine Gastroenterology
DX: K52.9 Noninfective gastroenteritis and colitis, unspecified (principal); K83.01 Primary sclerosing cholangitis; R11.2 Nausea with vomiting, unspecified
CPT/HCPCS: 78265

== ENCOUNTER 2019-02-25 09:57 | Outpatient (CLI) | payer OTHER | END 2019-02-25 09:58 | disposition short-term general hospital (02) | LOC: EMS 09:57 | PROVIDERS: ATTEND Surgery | DX: D64.9 Anemia, unspecified (principal) | CPT/HCPCS: A0425; A0429 ==

== ENCOUNTER 2019-07-21 11:30 | Outpatient (CLI) | payer OTHER ==
[2019-07-21 12:54] LABS: BASOPHILS % (AUTO) 0.5 %; EOSINOPHILS % (AUTO) 0.9 %; HGB - HEMOGLOBIN 10.3 g/dL (12.0-16.0); LYMPHOCYTES # (AUTO) 1.4 10^3/uL (1.5-3.5); LYMPHOCYTES % (AUTO) 32.8 %; MEAN CORPUSCULAR HEMOGLOBIN 36.3 pg (27.0-31.0); MEAN CORPUSCULAR HGB CONC 33.2 g/dL (32.0-36.0); MEAN CORPUSCULAR VOLUME 109.2 fL (81.0-99.0); MEAN PLATELET VOLUME 10.4 fL (7.9-10.8); MONOCYTES # (AUTO) 0.3 10^3/uL (0.0-1.0); MONOCYTES % (AUTO) 7.8 %; NEUTROPHILS # (AUTO) 2.5 10^3/uL (1.5-6.6); NEUTROPHILS % (AUTO) 57.5 %; PLT - PLATELET COUNT 172 10^3/uL (130-450); RED BLOOD COUNT 2.84 10^6/uL (4.20-5.40); RED CELL DISTRIBUTION WIDTH 13.3 % (12.0-15.0); WHITE BLOOD COUNT 4.4 x10^3/uL (4.8-10.8)
[2019-07-21 13:44] LABS: ALBUMIN 3.4 g/dL (3.2-5.5); ALBUMIN/GLOBULIN RATIO 1.5 (1.0-2.2); BILIRUBIN,TOTAL 0.6 mg/dL (0.2-1.0); CALCIUM 8.5 mg/dL (8.5-10.3); CREATININE 0.6 mg/dL (0.4-1.0); MAGNESIUM 1.9 mg/dL (1.7-2.8); TOTAL PROTEIN 5.6 g/dL (6.7-8.2)
== END 2019-07-21 23:59 | disposition home or self-care (01) ==
LOC: LAB.R 11:30
DX: D50.9 Iron deficiency anemia, unspecified (principal); K50.00 Crohn's disease of small intestine without complications; A09 Infectious gastroenteritis and colitis, unspecified
CPT/HCPCS: 80053; 82525; 83735; 84100; 84630; 85025

== ENCOUNTER 2019-09-29 08:00 | Outpatient (CLI) | payer OTHER ==
[2019-09-29 13:06] LABS: BASOPHILS % (AUTO) 0.2 %; EOSINOPHILS # (AUTO) 0.1 10^3/uL (0.0-0.7); EOSINOPHILS % (AUTO) 1.1 %; HGB - HEMOGLOBIN 12.5 g/dL (12.0-16.0); LYMPHOCYTES # (AUTO) 2.4 10^3/uL (1.5-3.5); LYMPHOCYTES % (AUTO) 36.3 %; MEAN CORPUSCULAR HEMOGLOBIN 36.1 pg (27.0-31.0); MEAN CORPUSCULAR HGB CONC 33.6 g/dL (32.0-36.0); MEAN CORPUSCULAR VOLUME 107.5 fL (81.0-99.0); MEAN PLATELET VOLUME 10.8 fL (7.9-10.8); MONOCYTES # (AUTO) 0.6 10^3/uL (0.0-1.0); MONOCYTES % (AUTO) 8.7 %; NEUTROPHILS # (AUTO) 3.5 10^3/uL (1.5-6.6); NEUTROPHILS % (AUTO) 53.2 %; PLT - PLATELET COUNT 193 10^3/uL (130-450); RED BLOOD COUNT 3.46 10^6/uL (4.20-5.40); WHITE BLOOD COUNT 6.6 x10^3/uL (4.8-10.8)
[2019-09-29 13:20] LABS: ALBUMIN/GLOBULIN RATIO 1.7 (1.0-2.2); BILIRUBIN,TOTAL 0.5 mg/dL (0.2-1.0); CREATININE 0.6 mg/dL (0.4-1.0); MAGNESIUM 1.9 mg/dL (1.7-2.8); PHOSPHORUS 4.7 mg/dL (2.5-4.6); TOTAL PROTEIN 6.4 g/dL (6.7-8.2)
== END 2019-09-29 23:59 | disposition home or self-care (01) ==
LOC: LAB.R 08:00
DX: K50.00 Crohn's disease of small intestine without complications (principal); B95.62 Methicillin resistant Staphylococcus aureus infection as the cause of diseases classified elsewhere; A09 Infectious gastroenteritis and colitis, unspecified
CPT/HCPCS: 80053; 82525; 83735; 84100; 84630; 85025